=== PATIENT | female | born 1935 | race Caucasian/White ===

== ENCOUNTER 2020-01-31 13:56 | Outpatient (CLI) | payer MEDICARE, SELFPAY ==
--- NOTE | ~2020-01-31 | XR_ITS ---
XR chest 2V DATE: 01/31/2020 14:31 INDICATION: Shortness of breath. History of COPD. TECHNIQUE: AP and lateral views COMPARISON: 04/21/2015 CT chest high resolution scan 05/11/2005 two-view chest FINDINGS: Cardiomegaly. There is extensive thoracic aortic calcification as well as aortic ectasia an d tortuosity. No hilar or mediastinal enlargement is evident. There is old pulmonary granulomatous di sease on the right. No pulmonary infiltrate or consolidation, pleural effusion or pulmonary vascular congestion or pneumo thorax is detected. Diffuse osteopenia. There is scoliosis and degenerative change of the thoracic and lumbar spine. Dege nerative changes are noted at the shoulder joints. IMPRESSION: Cardiomegaly Aortic atherosclerosis No active pulmonary disease Reviewed, dictated and finalized at location A.
[2020-01-31 14:19] LABS: Basophils Percent Auto 0.6 % (0.2-1.2); Eosinophils Percent Auto 0.6 % (0-4.4); Hemoglobin 12.7 g/dL (12.0-15.0); Immature Granulocyte Absolute 0.03 K/mm3 (0.00-0.031); Immature Granulocyte Percent A 0.4 % (0-0.5); Lymphocytes Absolute Auto 1.65 K/mm3 (0.9-3.2); Lymphocytes Percent Auto 23.1 % (18.3-44.2); Mean Corpuscular HGB Conc 32.6 g/dl (32-36); Mean Corpuscular Hemoglobin 31.8 pg (26-34); Mean Corpuscular Volume 97.5 fl (80-100); Mean Platelet Volume 9.9 fl (7.4-10.4); Monocytes Absolute Auto 0.5 K/mm3 (0.1-0.6); Monocytes Percent Auto 6.4 % (2.6-8.5); Neutrophils Absolute Auto 4.9 K/mm3 (1.3-6.7); Neutrophils Percent Auto 68.9 % (45.5-73.1); Platelet Count Result 155 k/mm3 (150-375); Red Cell Distribution Width 14.7 % (11.5-14.5); White Blood Count 7.2 K/mm3 (4.5-10.0)
[2020-01-31 14:34] LABS: Blood Urea Nitrogen 20 mg/dL (7-17); Calcium 10.1 mg/dL (8.4-10.2); Carbon Dioxide 34 mmol/L (22-30); Chloride 95 mmol/L (98-107); Estimated Glomerular Filt Rate 53; Glucose 140 mg/dL (65-105); Potassium 4.2 mmol/L (3.4-5.0); Sodium 136 mmol/L (137-145)
[2020-01-31 14:39] LABS: Hemoglobin A1C 6.6 % (<5.7)
[2020-01-31 14:43] LABS: NT Pro B Type Natriuretic Pept 190 PG/ML (5-100)
== END 2020-01-31 13:57 | disposition home or self-care (01) ==
PROVIDERS: PCP Family Medicine; Visit Provider Nurse Practitioner Family
DX: R06.00 Dyspnea, unspecified (principal); R60.9 Edema, unspecified; I50.9 Heart failure, unspecified; E11.65 Type 2 diabetes mellitus with hyperglycemia; I10 Essential (primary) hypertension; R06.02 Shortness of breath; J44.9 Chronic obstructive pulmonary disease, unspecified
CPT/HCPCS: 36415; 71046; 80048; 83036; 83880; 85025

== ENCOUNTER 2020-03-10 14:25 | Outpatient (CLI) | payer MEDICARE, SELFPAY ==
--- NOTE | ~2020-03-10 | XR_ITS ---
EXAMINATION: XR knee RT 3V DATE: 03/10/2020 15:08 INDICATION: Right knee pain TECHNIQUE: Three views of the right knee were obtained. COMPARISON: None. FINDINGS: There is no fracture. Moderate to severe tricompartmental osteoarthritis is present. No dodie nt effusion/synovitis. There is calcified atherosclerosis. IMPRESSION: 1. No acute osseous abnormality. Reviewed, dictated and finalized at location A.
--- NOTE | ~2020-03-10 | XR_ITS ---
EXAMINATION: XR knee LT 3V DATE: 03/10/2020 15:08 INDICATION: Left knee pain TECHNIQUE: Three views of the left knee were obtained. COMPARISON: None. FINDINGS: There is no fracture. There is moderate tricompartmental osteoarthritis. No joint effusion/ synovitis. Calcified atherosclerosis is noted. IMPRESSION: 1. No acute osseous abnormality. Reviewed, dictated and finalized at location A.
== END 2020-03-10 14:26 | disposition home or self-care (01) ==
LOC: ANHIMG 14:28
PROVIDERS: PCP Family Medicine; Visit Provider Family Medicine
DX: M25.561 Pain in right knee (principal); M25.562 Pain in left knee; G89.29 Other chronic pain
CPT/HCPCS: 73562

== ENCOUNTER → 2020-09-21 08:59 | Outpatient (CLI) | payer MEDICARE, SELFPAY ==
--- NOTE | ~2020-09-21 | DEXA_ITS ---
Bone Density Report Name: Deena Cuevas Age: 85 Sex: Female Ethnicity: White Date of : 1935 Indication: postmenopausal; screening for osteoporosis; height loss; prior fracture; asthma or emphysema; end stage renal disease; Referring Provider: MARCELINO OSORIO Study: Bone densitometry was performed. Exam Date: September 21, 2020 Accession number: [id number] Bone Density: Region BMD T-score Z-score Classification AP Spine (L3, L4) 1.090 -0.1 2.9 Normal Femoral Neck (Left) 0.738 -1.0 1.5 Normal Total Hip (Left) 1.007 0.5 2.9 Normal Femoral Neck (Right) 0.651 -1.8 0.7 Osteopenia Total Hip (Right) 0.916 -0.2 2.1 Normal Total Hip Mean 0.962 0.2 2.5 Normal World Health Organization criteria for BMD impression classify patients as: Normal (T-score at or above -1.0), Osteopenia (T-score between -1.0 and -2.5), or Osteoporosis (T-score at or below -2.5). 10-year Fracture Risk: FRAX not reported because: Prior hip or vertebral fracture Previous Exams: Region Exam Age BMD T-score BMD Change BMD Change Date g/cm2 vs Baseline vs Previous AP Spine(L3, L4) 09/21/2020 85 1.090 -0.1 -0.022 0.017 05/18/2018 82 1.073 -0.3 -0.039 -0.029 04/27/2016 80 1.102 0.0 -0.010 -0.081* 09/15/2011 76 1.183 0.7 0.071* 0.000 07/23/2009 73 1.183 0.7 0.070* 0.070* 06/18/2007 71 1.112 0.1 Total Hip(Left) 09/21/2020 85 1.007 0.5 -0.168* -0.040 05/18/2018 82 1.048 0.9 -0.127 0.019 04/27/2016 80 1.028 0.7 -0.147* -0.138* 09/15/2011 76 1.166 1.8 -0.009 0.014 07/23/2009 73 1.152 1.7 -0.023 -0.023 06/18/2007 71 1.175 1.9 Total Hip(Right) 09/21/2020 85 0.916 -0.2 -0.238* -0.001 05/18/2018 82 0.918 -0.2 -0.237 -0.092 04/27/2016 80 1.010 0.6 -0.145* -0.076* 09/15/2011 76 1.085 1.2 -0.069* -0.046* 07/23/2009 73 1.132 1.6 -0.023 -0.023 06/18/2007 71 1.155 1.7 *Denotes significance at 95% confidence level, LSC for AP Spine = 0.022 g/cm2, LSC for Total Hip = 0.027 g/cm2 Clinical Information Provided by Patient: Have had a previous hip or vertebral fracture Has had a low trauma fracture Has the following medical conditions: Asthma or Emphysema, End stage renal disease Patient maximum
--- NOTE | ~2020-09-21 | MM_ITS ---
EXAMINATION: MM diagnostic billy LT w maria antonia HISTORY: History of mastectomy for right breast cancer TECHNIQUE: Craniocaudal, mediolateral, and mediolateral oblique 3-D tomosynthesis images of the left breast were performed and synthetic 2-D images were generated. CAD analysis was submitted and interpr eted. COMPARISON: 05/18/2018,04/29/2017, 04/27/2016 BREAST PARENCHYMAL COMPOSITION: There are scattered areas of fibroglandular density. FINDINGS: Scattered benign-appearing calcifications are present. There is no evidence of suspicious m ass, calcification, or architectural distortion to suggest malignancy. There has been no suspicious interval change. IMPRESSION: 1. No mammographic evidence of malignancy. 2. Recommend annual screening mammography while the patient remains in good health. BI-RADS Category 2: Benign finding(s). Reviewed, dictated and finalized at location A. NG SILKS CUSTODIAN IMPRESSION: 1. No mammographic evidence of malignancy. 2. Recommend annual screening mammography while the patient remains in good hea lt. BI-RADS Category 2: Benign finding(s).
== END ==
PROVIDERS: Visit Provider Family Medicine
DX: M81.0 Age-related osteoporosis without current pathological fracture (principal); C50.911 Malignant neoplasm of unspecified site of right female breast; N95.9 Unspecified menopausal and perimenopausal disorder; Z78.0 Asymptomatic menopausal state; M85.851 Other specified disorders of bone density and structure, right thigh; Z85.3 Personal history of malignant neoplasm of breast
CPT/HCPCS: 77061; 77065; 77080; G0279

== ENCOUNTER 2021-08-19 14:49 | Outpatient (CLI) | payer MEDICARE, SELFPAY ==
--- NOTE | ~2021-08-19 | XR_ITS ---
XR chest 2V 08/19/2021 15:14 Indication: Cough Procedure: 2 view chest Comparison: 01/31/2020 Findings: Interval placement of a stent at the aortic valve. There is extensive atherosclerosis and e ctasia of the aorta. There is chronic granulomatous disease. No focal air space disease, pulmonary ed adonis, pleural effusion or suspected pneumothorax. Impression: 1: No acute cardiopulmonary disease. Reviewed, dictated and finalized at location B. CLEANING MACHINE FEEDER Impression: 1: No acute cardiopulmonary disease.
--- NOTE | 2021-08-19 15:15 | ECG_ITS ---
Measurements Intervals [place] Rate: 99 P: 106 DC: 226 QRS: -2 QRSD: 82 T: 51 QT: 334 QTc: 430 Interpretive Statements SINUS RHYTHM WITH SINUS ARRHYTHMIA WITH FIRST DEGREE AV BLOCK DELAYED PRECORDIAL R/S TRANSITION BASELINE ARTIFACT- I, II, III, AVR, AVL, AVF ABNORMAL ECG Electronically Signed On 08-19-2021 15:36:17 KST OPERATOR by Kelvin Sidhu D.O.
== END 2021-08-19 14:50 | disposition home or self-care (01) ==
LOC: ANHIMG 14:52
PROVIDERS: PCP Family Medicine; Visit Provider Nurse Practitioner Family
DX: R05.9 Cough, unspecified (principal); I49.9 Cardiac arrhythmia, unspecified; U07.1 COVID-19; I44.0 Atrioventricular block, first degree
CPT/HCPCS: 71046; 93005

== ENCOUNTER 2023-10-13 13:41 | Inpatient (IN) | payer MEDICARE, SELFPAY ==
--- NOTE | ~2023-10-13 | US_ITS ---
EXAMINATION: US venous doppler [facility] DATE: 10/14/2023 17:42 INDICATION: Bilateral lower extremity edema . TECHNIQUE: Grayscale images without and with compression and Doppler images of the bilateral lower ex tremity veins were obtained. COMPARISON: None FINDINGS: The right common femoral vein, profunda (deep) femoral vein, femoral vein, popliteal vein, peroneal v ein, posterior tibial veins, and greater saphenous vein are patent. The left common femoral vein, profunda (deep) femoral vein, femoral vein, popliteal vein, peroneal v ein, posterior tibial veins, and greater saphenous vein are patent. IMPRESSION: Patent bilateral lower extremity veins. No evidence of deep venous thrombosis. Reviewed, dictated and finalized at location K. [employer]
--- NOTE | ~2023-10-13 | XR_ITS ---
EXAMINATION: XR chest 1V DATE: 10/13/2023 17:41 INDICATION: Fall. TECHNIQUE: A single frontal view of the chest was obtained. COMPARISON: Chest 2 views 08/19/2021 FINDINGS: A calcified right lung nodule and calcified right hilar lymph nodes are consistent with old adenomatous disease. There is mild atelectasis in left mid and lower lung zones. No pleural effusion or pneumothorax. Cardiomegaly is noted. There are changes of aortic valve replacement. There is a tw o-part fracture of proximal right humerus. There are surgical clips in right chest wall. IMPRESSION: 1. Cardiomegaly. 2. Mild atelectasis in left mid and lower lung zones. 3. Two-part fracture of proximal right humerus. Reviewed, dictated and finalized at location E. ER BREWER
--- NOTE | ~2023-10-13 | XR_ITS ---
EXAMINATION: XR hand RT min 3V DATE: 10/13/2023 17:41 INDICATION: Right hand pain. Fall. TECHNIQUE: 3 views of right hand were obtained. COMPARISON: Right hand radiographs 04/22/2019 FINDINGS: Bone alignment is normal. No fracture. There is diffuse osteopenia. There is moderate osteo arthritis of triscaphe joint and severe osteoarthritis of first carpometacarpal joint. There is osteo arthritis at most of the metacarpophalangeal joints and interphalangeal joints including severe osteo arthritis at first interphalangeal joint, fourth proximal interphalangeal joint, and second, third, f ourth, and fifth distal interphalangeal joints. IMPRESSION: 1. Polyarticular osteoarthritis. Reviewed, dictated and finalized at location E. ATOR HAND
--- NOTE | ~2023-10-13 | XR_ITS ---
EXAMINATION: XR hip RT 2V w AP pelvis DATE: 10/13/2023 17:41 INDICATION: Right hip pain. Fall. TECHNIQUE: An anteroposterior view of the pelvis and 2 views of right hip were obtained. COMPARISON: None. FINDINGS: Bone alignment is normal. No fracture. There is severe lumbar spondylosis. There is mild os teoarthritis of the hip joints. IMPRESSION: 1. Mild osteoarthritis of the hips. Reviewed, dictated and finalized at location E. ING FURNACE FEEDER
--- NOTE | ~2023-10-13 | XR_ITS ---
EXAMINATION: XR lumbar spine 2-3V DATE: 10/13/2023 17:41 INDICATION: Back pain. Fall. TECHNIQUE: 3 views of lumbar spine were obtained. COMPARISON: Lumbar spine radiographs 10/02/2004, lumbar spine CT 07/2117 FINDINGS: There is 4 mm anterolisthesis of L4 on L5. Sensitivity is decreased by obesity. There are c hronic burst fractures of T12 and L1. There is moderately decreased disc height at L4-L5 and L5-S1. T here is multilevel severe facet joint osteoarthritis. There are changes of aortic valve replacement. Cholelithiasis is noted. IMPRESSION: 1. Moderate lumbar spondylosis. Reviewed, dictated and finalized at location E. TES INSTRUCTOR
--- NOTE | ~2023-10-13 | XR_ITS ---
EXAMINATION: XR shoulder RT 1V DATE: 10/13/2023 17:42 INDICATION: Right shoulder pain. Fall. TECHNIQUE: A single view of right shoulder was obtained. COMPARISON: None. FINDINGS: There is a oblique fracture of surgical neck of proximal right humerus. The distal fracture fragment demonstrates one shaft width medial displacement and 80 degrees lateral angulation. There i s severe osteoarthritis of glenohumeral joint and acromioclavicular joint. IMPRESSION: 1. Two-part fracture of proximal right humerus. 2. Polyarticular osteoarthritis. Reviewed, dictated and finalized at location E. CTOR OF PATIENT SAFETY
--- NOTE | ~2023-10-13 | CT_ITS ---
EXAMINATION: CT brain wo con DATE: 10/13/2023 17:03 INDICATION: Head injury. TECHNIQUE: Computed tomography (CT) of the head was performed without intravenous contrast. The mA wa s adjusted according to patient size. Iterative reconstruction technique was employed. The dose-lengt h product was 605.33 mGy-cm. COMPARISON: CTA neck 06/04/2009 FINDINGS: There are scattered areas of low attenuation in the cerebral white matter, which is within normal limits for the patient's age. There is no intracranial hemorrhage, acute infarction, or abnorm al intracranial mass lesion. The ventricles are normal in size. There are likely changes of ocular le ns replacement surgeries. The paranasal sinuses are clear. The mastoid air cells are normal. IMPRESSION: 1. Normal aging brain. Reviewed, dictated and finalized at location E. TENANCE LEADER IMPRESSION: 1. Normal aging brain.
[2023-10-13 13:48] VITALS: BP 110/61; PULSE 100; RESP 20; TEMP 36.7; O2SAT 100
[2023-10-13 16:01] VITALS: BP 157/59; PULSE 95; RESP 16; O2SAT 100
[2023-10-13] MEDS: MORPHINE SULFATE (*CRX) 2 MG/ML INJ IV PUSH ×3 (16:41→21:17)
[2023-10-13 16:45] LABS: Basophils Percent Auto 0.3 % (0.2-1.2); Hematocrit 28.1 % (37.0-47.0); Hemoglobin 8.8 g/dL (12.0-15.0); Immature Granulocyte Absolute 0.03 K/mm3 (0.00-0.031); Immature Granulocyte Percent A 0.3 % (0-0.5); Lymphocytes Absolute Auto 1.59 K/mm3 (0.9-3.2); Lymphocytes Percent Auto 16.7 % (18.3-44.2); Mean Corpuscular HGB Conc 31.3 g/dl (32-36); Mean Corpuscular Hemoglobin 31.9 pg (26-34); Mean Corpuscular Volume 101.8 fl (80-100); Mean Platelet Volume 10.6 fl (7.4-10.4); Monocytes Absolute Auto 0.8 K/mm3 (0.1-0.6); Monocytes Percent Auto 8.2 % (2.6-8.5); Neutrophils Absolute Auto 7.1 K/mm3 (1.3-6.7); Neutrophils Percent Auto 74.5 % (45.5-73.1); Platelet Count Result 137 k/mm3 (150-375); Red Blood Count 2.76 M/mm3 (4.2-5.4); Red Cell Distribution Width 14.6 % (11.5-14.5); White Blood Count 9.5 K/mm3 (4.5-10.0)
[2023-10-13 16:53] LABS: INR 1.1; Prothrombin Time 14.3 Seconds (11.1-14.7)
[2023-10-13 16:54] LABS: Partial Thromboplastin Time 29.3 SECONDS (22.3-36.8)
[2023-10-13 16:55] LABS: Alanine Aminotransferase 25 U/L (6-35); Albumin Level 3.4 g/dL (3.5-5.1); Alkaline Phosphatase 84 U/L (38-126); Anion Gap 4 mmol/L (8-16); Aspartate Amino Transferase 46 U/L (14-36); Bilirubin,Total 0.7 mg/dL (0.2-1.3); Blood Urea Nitrogen 36 mg/dL (7-17); Calcium 8.9 mg/dL (8.4-10.2); Carbon Dioxide 31 mmol/L (22-30); Chloride 96 mmol/L (98-107); Estimated CRCL calculation 38 ml/min; Estimated Glomerular Filt Rate 47; Glucose 144 mg/dL (65-110); Potassium 4.8 mmol/L (3.4-5.0); Sodium 131 mmol/L (137-145)
[2023-10-13 18:14] LABS: Appearance Urine Clear (Clear); Bacteria Urine None Seen /hpf; Bilirubin Urine Negative (Negative); Blood Urine Negative (Negative); Color Urine Dark Yellow (Yellow); Glucose Urine UA Negative (Negative); Hyaline Casts Urine Present /lpf; Ketones Urine Trace mg/dL (Negative); Leukocyte Esterase Ur 2+ LEU/UL (Negative); Nitrate Urine Negative (Negative); Non Pathogenic Casts >20; Protein Urine 1+ mg/dL (Negative); RBC Urine 0-2 /hpf (0-2); Specific Grav Ur 1.015 (1.001-1.035); Squamous Epithelial Cell Urine Occasional /hpf (Few); Urobilinogen Urine 0.2 mg/dL (<2.0); WBC Urine 21-50 /hpf
[2023-10-13 18:15] LABS: Add Urine Microscopic? YES
--- NOTE | 2023-10-13 18:30 | ED.GENADULT ---
HPI - General Adult General Chief complaint: Fall Stated complaint: GLF, r shoulder pain, Time Seen by Provider: 10/13/23 15:42 History of Present Illness HPI narrative: Patient is a 89-year-old female who presents ER after a fall at home. She has had progressive weakness over last 2-3 days which she has had trouble ambulating. Today she tried to get out of bed to go to the bathroom when she fell onto the ground on her outstretched right arm. Sudden onset pain to the shoulder. Patient refused transfer to the hospital. Pain is worsened throughout the day so she decided finally to come in. No numbness or tingling to the arm. She does have bruising to the anterior aspect. She reports weakness in her legs which caused her to not be able to walk. No previous trauma. No focal weakness to the arm. Related Data Home Medications Medication Instructions Recorded Confirmed multivitamin 1 tablet PO DAILY 09/06/19 07/14/23 polyethylene glycol 3350 17 17 gm PO DAILY 09/06/19 07/14/23 gram/dose oral powder aspirin 81 mg tablet,delayed 81 mg PO DAILY 06/25/21 07/14/23 release (Adult Low Dose Aspirin) Allergies Allergy/AdvReac Type Severity Reaction Status Date / Time Penicillins Allergy Mild Unknown Verified 10/13/23 13:52 amoxicillin Allergy Unknown Unknown Verified 10/13/23 13:52 ampicillin Allergy Unknown Unknown Verified 10/13/23 13:52 azithromycin Allergy Unknown Unknown Verified 10/13/23 13:52 codeine Allergy Unknown Unknown Verified 10/13/23 13:52 gabapentin Allergy Unknown Unknown Verified 10/13/23 13:52 Iodinated Contrast Media Allergy Unknown Unknown Verified 10/13/23 13:52 levofloxacin Allergy Unknown Unknown Verified 10/13/23 13:52 Contrast Media Allergy Unknown UNKNOWN Uncoded 07/14/23 10:19 Review of Systems Review of Systems: All systems reviewed & are unremarkable except as noted in HPI and below Constitutional: Constitutional: Reports fatigue and Reports weakness ENT: Reports system reviewed and no additional complaints, except as documented Cardiovascular: Cardiovascular: Reports no additional cardiovascular complaints Respiratory: Respiratory: Reports no additional respiratory complaints Gastrointestinal: Gastrointestinal: Reports no additional gastrointestinal complaints Musculoskeletal: Musculoskeletal: Reports back pain (Buttock), Reports arthralgias, Denies joint swelling and Reports muscle cramps Neurologic: Reports system reviewed and no additional complaints, except as documented PMFSH Past Medical History Medical History Allergies Anemia Anemia Anxiety Arthritis Asthma Ataxia BMI 40.0-44.9, adult Breast cancer CAD (coronary artery disease) CHF (congestive heart failure) CKD (chronic kidney disease) stage 3, GFR 30-59 ml/min COPD (chronic obstructive pulmonary disease) Depression Diabetes GERD (gastroesophageal reflux disease) Gout Gross hematuria Heart disease HTN (hypertension) Low blood potassium Morbid obesity Osteoporosis Recurrent urinary tract infection Renal disease Stroke Thrombocytopenia Thyroid disease Weakness of both legs Surgical History Surgical History H/O cataract extraction H/O mechanical aortic valve replacement H/O: hysterectomy History of back surgery Hx of tonsillectomy Family History Family History Mother Family history of coronary artery disease Family history of heart disease in male family member before age 55 Acute myocardial infarction Sibling Family history of liver disease Father Family history of heart disease in male family member before age 55 Other Diabetes mellitus Family history of cardiovascular disease Family history of diabetes mellitus in first degree relative Family history of kidney disease Hypertension Social History Social Histo
[2023-10-13 19:04] VITALS: BP 150/58; PULSE 93; RESP 16; TEMP 36.6; O2SAT 100
[2023-10-13 19:55] LABS: Influenza A QL RT-PCR Negative (Negative); Influenza B QL RT-PCR Negative (Negative); RSV RNA, RT-PCR Negative (Negative); SARS-CoV-2 RNA PCR Negative (Negative)
[2023-10-13 20:21] VITALS: BP 131/58; PULSE 88; RESP 13; O2SAT 95
--- NOTE | 2023-10-13 20:22 | PM.IMHP ---
H&P: HPI History of Present Illness Date/Time: 10/13/23 19:15 Chief Complaint: Right arm pain after fall. Narrative: This is very pleasant 88-year-old female with history of stroke, congestive heart failure, coronary artery disease, hypertension, chronic obstructive pulmonary disease, chronic respiratory failure, obstructive sleep apnea on CPAP, hypothyroidism, breast cancer, type 2 diabetes mellitus, hypothyroidism, anemia, depression, anxiety, and chronic decubitus ulcer over the coccyx who presented to the emergency department via EMS from home for evaluation of right arm pain after fall. The patient provides the following history. She lives in her own home and her daughters come by frequently to help out. She ambulates with a walker and is typically able to get up and about the house without much issue. She woke up at about 05:00 with the urge to go to the bathroom and she tells me that she waited too long and she tried to hurry to the bathroom. Unfortunately she got her foot caught up in her sheets and she fell out of bed, landing on her right side. She hit her head on the floor and had immediate pain and bruising in her right arm. She called EMS for lift assist but initially declined transfer. She has not been able to get around at home due to ongoing pain in the right arm and she came in for evaluation. Multiple images were obtained and she was found to have a 2 part fracture of the proximal right humerus. The arm has been placed in a sling and she is being admitted in this setting for pain control, orthopedic consultation, and custodial placement while that fracture heals. She denies head trauma and loss of consciousness in the fall. She also denies feelings of lightheadedness, dizziness, cold and flu symptoms, chest pain, pleuritic pain, cough, nausea, vomiting, diarrhea, and dysuria. Review of Systems Review of Systems: Twelve systems were reviewed and are negative except for as per HPI. [facility] Past Medical History Medical History (Updated 10/13/23 @ 23:04 by Anali Sims PA-C) Allergies Anemia Anxiety Arthritis Asthma Ataxia Breast cancer Chronic kidney disease Chronic obstructive pulmonary disease Coronary artery disease Decubitus ulcer Depression Gastroesophageal reflux disease Gout Heart failure of unknown type Hypertension Morbid obesity Obstructive sleep apnea on CPAP Osteoporosis Recurrent urinary tract infection Stroke Thrombocytopenia Thyroid disease Type 2 diabetes mellitus Weakness of both legs Surgical History Surgical History (Updated 10/13/23 @ 22:56 by Anali Sims PA-C) History of aortic valve replacement with tissue graft History of back surgery History of cataract extraction History of hysterectomy History of tonsillectomy Family History Family History Mother Family history of coronary artery disease Family history of heart disease in male family member before age 55 Acute myocardial infarction Sibling Family history of liver disease Father Family history of heart disease in male family member before age 55 Other Diabetes mellitus Family history of cardiovascular disease Family history of diabetes mellitus in first degree relative Family history of kidney disease Hypertension Social History Social History (Updated 10/13/23 @ 22:56 by Anali Sims PA-C) Social History: Surrogate medical decision maker: Carli Michaels, daughter. Code status: Full code. Smoking status: Never smoker Second hand tobacco smoke exposure: Yes Alcohol intake: never Substance use: never Substance use type: does not use Do You Feel Safe in your Home?: No Lack of Transportation: No Lack of Food: Never True Current Housing: I Have Housing Concerned About Future Housing: No Difficulty Paying Gas/Electric Bills: No Difficulty Paying for Meds: No Currently Unemployed:
--- NOTE | 2023-10-13 21:20 | ADMGEN ---
This patient, Deena Cuevas, was admitted to Medical Room 251-01. Patient/family oriented to hospital policies and general routines including ID bracelet, bed and alarms, visiting hours, pain management, procedures, bathroom and other care routines, personal items, smoking policy, room service/diet, and visiting hours. Information on how to activate the Rapid Response Team has been discussed. Patient/Family are encouraged to report perceived risks to care and to ask questions if they do not understand what they are told or what they should do.
[2023-10-13 21:57] VITALS: BP 150/60; PULSE 74; RESP 18; TEMP 36.6; O2SAT 100
[2023-10-13 21:58] VITALS: O2SAT 100; BMI 38.9
[2023-10-13 23:47] LABS: Iron 37 ug/dL (37-170)
[2023-10-13 23:57] LABS: Percent Iron Saturation 15 % (20-50)
[2023-10-14] LABS: Hemoglobin A1C 5.3 % (<5.7)
[2023-10-14 00:21] LABS: Thyroid Stimulating Hormone Reflex 0.908 uIU/mL (0.465-4.68)
[2023-10-14 01:09] LABS: Folic Acid > 20.0 ng/mL (2.76->20)
[2023-10-14 03:08] VITALS: BP 162/59; PULSE 77; RESP 14; TEMP 36.6; O2SAT 100
[2023-10-14] MEDS: ACETAMINOPHEN 325 MG TABLET 650 MG PO ×2 (03:17→11:08)
[2023-10-14 05:17] LABS: Hematocrit 24.9 % (37.0-47.0); Hemoglobin 7.8 g/dL (12.0-15.0); Immature Platelet Fraction Pct 4.4 % (0.9-11.2); Mean Corpuscular HGB Conc 31.3 g/dl (32-36); Mean Corpuscular Hemoglobin 32.1 pg (26-34); Mean Corpuscular Volume 102.5 fl (80-100); Mean Platelet Volume 10.7 fl (7.4-10.4); Platelet Count Result 125 k/mm3 (150-375); Red Blood Count 2.43 M/mm3 (4.2-5.4); Red Cell Distribution Width 14.3 % (11.5-14.5); White Blood Count 6.4 K/mm3 (4.5-10.0)
[2023-10-14 05:28] LABS: Anion Gap 5 mmol/L (8-16); Blood Urea Nitrogen 36 mg/dL (7-17); Calcium 8.8 mg/dL (8.4-10.2); Carbon Dioxide 30 mmol/L (22-30); Chloride 97 mmol/L (98-107); Estimated CRCL calculation 36 ml/min; Estimated Glomerular Filt Rate 47; Glucose 127 mg/dL (65-110); Potassium 4.3 mmol/L (3.4-5.0); Sodium 132 mmol/L (137-145)
[2023-10-14 08:37] VITALS: O2SAT 100
--- NOTE | 2023-10-14 08:43 | PM.CNOR ---
Assessment and Plan Assessment and plan (1) Fracture of proximal end of right humerus: Qualifiers: Encounter type: initial encounter Fracture type: closed Fracture morphology: other fracture Fracture alignment: displaced Qualified Code(s): S42.291A - Other displaced fracture of upper end of right humerus, initial encounter for closed fracture Code(s): S42.201A - Unspecified fracture of upper end of right humerus, initial encounter for closed fracture Status: Acute Assessment and Plan: New patient evaluation status post injury Right shoulder. The history, physical exam and radiographs reviewed with the patient. fall from bed at home onto right shoulder. Type of fracture discussed in detail. Displaced fracture proximal humerus surgical neck. Pre-existing degenerative changes shoulder joint. Treatment options including operative and non operative treatment reviewed. Risks, benefits and alternatives of each treatment discussed in detail. Severe medical comorbidities as well as decreased ability to rehab. Patient is at high fall risk. The patient has declined surgical treatment. Risks of treatment decision discussed in detail. Potential problems with displacement of the fracture, loss of alignment, nonunion, malunion and dysfunction discussed in detail. The patient's questions were answered. They verbalized understanding and agreement. Conservative treatment with immobilization, ice, Pain control. mobilize Patient as tolerated. PT/OT. Repeat radiographs in 5 weeks. History of Present Illness HPI Consult date: 10/14/23 Requesting physician: Anthony Rothman MD Chief complaint: huemrus fracture, uti, weakness Narrative: 88-year-old woman who fell at home after tripping bedding injuring her right shoulder. Found to have right humerus fracture. Admitted for medical care as well as eval and treatment of her fracture. Patient is [id number]. Complains of pain both shoulders prior to the injury due to history of breast cancer with mastectomy on the right and valve replacement surgery involving the left side of the chest. Complains of some numbness in the small finger which was present prior to the injury. Review of Systems Constitutional: Constitutional: Denies fever(s) Eyes: Eyes: Denies blurry vision ENT: Reports Normal hearing present Cardiovascular: Cardiovascular: Denies chest pain and Denies dyspnea Respiratory: Respiratory: Denies dyspnea and Denies wheezing Gastrointestinal: Gastrointestinal: Denies abdominal pain Genitourinary: Genitourinary: Denies urinary urgency Musculoskeletal: Musculoskeletal: Reports as per HPI and Denies numbness Integumentary/Breasts: Skin/Breast: Denies changing lesions and Denies sores Neurologic: Reports Normal hearing present, Denies behavioral changes, Denies confusion, Denies numbness and Denies convulsions Psychiatric: Psychiatric: Denies behavioral changes, Denies confusion and Denies hallucinations Endocrine: Endocrine: Denies heat intolerance Hematologic/Lymphatic: Hematologic/Lymphatic: Denies easy bleeding Allergic/Immunologic: Allergic/Immunologic: Denies wheezing PMFSH Past Medical History Medical History Allergies Anemia Anxiety Arthritis Asthma Ataxia Breast cancer Chronic kidney disease Chronic obstructive pulmonary disease Coronary artery disease Decubitus ulcer Depression Gastroesophageal reflux disease Gout Heart failure of unknown type Hypertension Morbid obesity Obstructive sleep apnea on CPAP Osteoporosis Recurrent urinary tract infection Stroke Thrombocytopenia Thyroid disease Type 2 diabetes mellitus Weakness of both legs Surgical History Surgical History History of aortic valve replacement with tissue graft History of back surgery History of cataract extraction History of
[2023-10-14 09:41] LABS: Glucose Point of Care 120 mg/dl (65-105)
[2023-10-14] MEDS: MORPHINE SULFATE (*CRX) 2 MG/ML INJ IV PUSH ×3 (12:20→18:09)
[2023-10-14 12:21] LABS: Glucose Point of Care 148 mg/dl (65-105)
[2023-10-14 15:32] VITALS: BP 161/60; PULSE 82; RESP 12; TEMP 36.8; O2SAT 100
[2023-10-14 16:47] LABS: Glucose Point of Care 128 mg/dl (65-105)
--- NOTE | 2023-10-14 17:01 | PM.IMPN ---
Progress Note: A&P Assessment and Plan (1) Obstructive sleep apnea on CPAP: Code(s): G47.33 - Obstructive sleep apnea (adult) (pediatric) Status: Acute (2) Fall from bed: Code(s): W06.XXXA - Fall from bed, initial encounter Status: Acute (3) Hypertension: Code(s): I10 - Essential (primary) hypertension Status: Acute (4) Type 2 diabetes mellitus: Code(s): E11.9 - Type 2 diabetes mellitus without complications Status: Acute (5) Chronic obstructive pulmonary disease: Code(s): J44.9 - Chronic obstructive pulmonary disease, unspecified Status: Acute (6) Fracture of proximal end of right humerus: Qualifiers: Encounter type: initial encounter Fracture alignment: displaced Fracture morphology: other fracture Fracture type: closed Qualified Code(s): S42.291A - Other displaced fracture of upper end of right humerus, initial encounter for closed fracture Code(s): S42.201A - Unspecified fracture of upper end of right humerus, initial encounter for closed fracture Status: Acute (7) Acute UTI: Code(s): N39.0 - Urinary tract infection, site not specified Status: Acute Plan Continue antibiotics for now. Can discontinue based on urine culture results. Orthopedic consultation appreciated. Mobility as tolerated, physical therapy and OT ordered. Disposition to SNF for therapy. Pending venous ultrasound of the lower extremities to rule out DVT. Monitor hemoglobin. If hemoglobin is stable in the morning start DVT prophylaxis with Lovenox or heparin. Full code Subjective Date/time seen: 10/14/23 17:01 Interval history: No acute overnight events. The patient has no complaints and denies any pain at the moment. Review of Systems Review of Systems: All systems reviewed & are unremarkable except as noted in HPI and below (Subjective) Exam Const: General: comfortable and no acute distress Eyes: Pupils: Equal, round and reactive pupils present Resp: Effort & Inspection: normal respiratory effort Auscultation: clear to auscultation bilaterally Cardio: Rate: regular rate Rhythm: regular rhythm GI: GI Palp: Yes Soft to palpation and No Tenderness to palpation present (GI) Extrem: General: edema (1+ bilateral lower extremity edema) Objective Data Vital Signs Vital Signs: Vital Signs - 24 hr 10/13/23 19:04 10/13/23 20:21 01/26/24 21:57 Temperature 97.8 F 97.8 F Pulse Rate 93 88 74 Respiratory Rate 16 13 18 Blood Pressure 150/58 H 131/58 L 150/60 H Pulse Oximetry 100 95 100 Oxygen Delivery Oxygen Flow Rate 10/13/23 21:58 10/14/23 03:08 10/14/23 08:37 Temperature 97.9 F Pulse Rate 77 Respiratory Rate 14 Blood Pressure 162/59 H Pulse Oximetry 100 100 100 Oxygen Delivery Nasal Cannula Nasal Cannula Oxygen Flow Rate 3 3 10/14/23 15:32 Temperature 98.3 F Pulse Rate 82 Respiratory Rate 12 Blood Pressure 161/60 H Pulse Oximetry 100 Oxygen Delivery Oxygen Flow Rate Intake/Output Intake/Output: Intake & Output 10/11/23 10/12/23 10/13/23 10/14/23 23:59 23:59 23:59 23:59 Intake Total 50 320 Output Total 100 800 Balance -50 -480 Meds/Results Medications: Active Medications Generic Name Dose Route Start Last Admin Trade Name Freq PRN Reason Stop Dose Admin Acetaminophen 650 mg 10/13/23 18:59 10/14/23 11:08 Acetaminophen 325 Mg Tablet PO 650 mg Q4H PRN Administration Mild Pain (1-3) or Fever Albuterol 2 puff 10/14/23 16:59 Albuterol Sulfate (*Sp) Aerosol 1 Puff INHALATION Q4H PRN shortness of breath or wheezing Allopurinol 100 mg 10/14/23 17:00 Allopurinol 100 Mg Tablet PO TID [facility] Aspirin 81 mg 10/15/23 09:00 Aspirin 81 Mg Enteric Tablet PO DAILY [facility] Atorvastatin Calcium 80 mg 10/15/23 09:00 Atorvastatin 40 Mg Tablet PO DAILY [facility] Dextrose 12.5 gm 10/13/23 23:04 Dextrose 50% 25 Gm/50 Ml
[2023-10-14] MEDS: allopurinoL 100 MG TABLET PO (18:08)
[2023-10-14] MEDS: lisinopriL 2.5 MG TABLET BY MOUTH (18:09)
[2023-10-14] MEDS: ONDANSETRON INJ 4 MG/2 ML VIAL IV PUSH (20:03)
[2023-10-14 20:37] VITALS: BP 149/64; PULSE 96; RESP 16; TEMP 36.4; O2SAT 100
[2023-10-14 21:20] LABS: Glucose Point of Care 139 mg/dl (65-105)
[2023-10-14] MEDS: LORazepam (*CRX) 0.5 MG TABLET PO (22:14)
[2023-10-14 23:18] VITALS: PULSE 105; O2SAT 94
[2023-10-15] VITALS (7 sets, daily range): BP systolic 96–139; BP diastolic 50–69; PULSE 88–101; RESP 20; TEMP 36.1–36.7; O2SAT 93–100
[2023-10-15] MEDS: MORPHINE SULFATE (*CRX) 2 MG/ML INJ IV PUSH ×5 (00:03→21:12)
[2023-10-15 05:51] LABS: Basophils Percent Auto 0.3 % (0.2-1.2); Eosinophils Percent Auto 0.1 % (0-4.4); Hematocrit 25.6 % (37.0-47.0); Hemoglobin 8.1 g/dL (12.0-15.0); Immature Granulocyte Absolute 0.02 K/mm3 (0.00-0.031); Immature Granulocyte Percent A 0.2 % (0-0.5); Lymphocytes Percent Auto 6.4 % (18.3-44.2); Mean Corpuscular HGB Conc 31.6 g/dl (32-36); Mean Corpuscular Hemoglobin 32.3 pg (26-34); Mean Platelet Volume 10.3 fl (7.4-10.4); Monocytes Absolute Auto 0.7 K/mm3 (0.1-0.6); Monocytes Percent Auto 6.3 % (2.6-8.5); Neutrophils Absolute Auto 9.4 K/mm3 (1.3-6.7); Neutrophils Percent Auto 86.7 % (45.5-73.1); Platelet Count Result 143 k/mm3 (150-375); Red Blood Count 2.51 M/mm3 (4.2-5.4); Red Cell Distribution Width 14.4 % (11.5-14.5); White Blood Count 10.9 K/mm3 (4.5-10.0)
[2023-10-15 06:07] LABS: Alanine Aminotransferase 22 U/L (6-35); Albumin Level 3.1 g/dL (3.5-5.1); Alkaline Phosphatase 75 U/L (38-126); Anion Gap 6 mmol/L (8-16); Aspartate Amino Transferase 31 U/L (14-36); Bilirubin,Total 0.9 mg/dL (0.2-1.3); Blood Urea Nitrogen 39 mg/dL (7-17); Calcium 8.7 mg/dL (8.4-10.2); Carbon Dioxide 33 mmol/L (22-30); Chloride 94 mmol/L (98-107); Estimated CRCL calculation 33 ml/min; Estimated Glomerular Filt Rate 42; Glucose 147 mg/dL (65-110); Magnesium 2.3 mg/dL (1.6-2.3); Sodium 133 mmol/L (137-145)
[2023-10-15] MEDS: LEVOTHYROXINE SODIUM 125 MCG TABLET PO (06:18)
--- NOTE | 2023-10-15 07:33 | PM.PNORT ---
Progress Note: A&P Assessment and Plan (1) Fracture of proximal end of right humerus: Qualifiers: Encounter type: subsequent encounter Fracture alignment: displaced Fracture morphology: other fracture Fracture type: closed Fracture healing: with routine healing Qualified Code(s): S42.291D - Other displaced fracture of upper end of right humerus, subsequent encounter for fracture with routine healing Code(s): S42.201A - Unspecified fracture of upper end of right humerus, initial encounter for closed fracture Status: Acute Assessment and Plan: right proximal humerus fracture. Patient resting comfortably. May be up as tolerated. Sling for immobilization. Pain control. Orthopedic follow-up in 5 weeks for new radiographs. Subjective Subjective Date/Time Seen: 10/15/23 07:33 Principal diagnosis: Right proximal humerus fracture Interval history: resting comfortably. No new complaints. Exam Const: General: No confusion Orientation/consciousness: patient oriented x3 and No confusion HENMT: Head: normal to inspection and contusion ( Ecchymosis) right occipital Neck: Neck: supple and nontender Chest: Chest palpation & inspection: normal inspection of the chest Resp: Effort & Inspection: normal respiratory effort and no audible wheezes Cardio: Rate: regular rate Rhythm: regular rhythm GI: GI Palp: No abdominal tenderness and Yes Soft to palpation : General: Yes deferred Skin: General skin exam: no rashes or lesions noted Neuro: General: patient oriented x3 and No confusion Cranial nerves: Yes Normal hearing present Extrem: General: capillary refill normal Right upper extremity: shoulder/upper arm abnormal to inspection (Ecchymosis lateral shoulder), tenderness of the proximal humerus, swelling of the proximal humerus, axillary nerve sensory function normal and abnormal ROM pain with active ROM in extension and in flexion and with range as follows (Deferred secondary to fracture), elbow/forearm normal to inspection and normal ROM; no tenderness and no swelling and Extremity exam: right hand normal to inspection, normal capillary refill, neuromotor exam normal, neurosensory exam normal, tendon exam normal of all digits and vascular exam radial pulse present and normal capillary refill Left upper extremity: normal to inspection and shoulder/upper arm inspection abnormal and normal ROM; no tenderness and no swelling Right lower extremity: hip/thigh Details: normal to inspection and normal ROM; no tenderness, knee Details: normal to inspection and swelling Location: of the pre-patellar area, ankle ( able to actively flex and extend ankle) Details: no tenderness and foot Details: normal capillary refill, toes with normal ROM, vascular exam Details: dorsalis pedis pulse present and normal capillary refill and motor-sensory exam Details: light-touch normal Location: in all toes; no tenderness Left lower extremity: normal to inspection, hip/thigh Details: no tenderness and no swelling, lower leg, ankle (no calf tenderness) Details: normal ROM; no tenderness and foot Details: normal capillary refill, vascular exam Details: dorsalis pedis pulse present and normal capillary refill and motor-sensory exam light-touch normal in all toes Psych: Affect: normal affect Objective Data Vital Signs Vital Signs: Vital Signs - 24 hr 10/14/23 08:37 10/14/23 15:32 10/14/23 20:37 Temperature 98.3 F 97.5 F L Pulse Rate 82 96 Respiratory Rate 12 16 Blood Pressure 161/60 H 149/64 H Pulse Oximetry 100 100 100 Oxygen Delivery Nasal Cannula Oxygen Flow Rate 3 10/14/23 23:18 10/15/23 04:09 Temperature 97 F L Pulse Rate 105 H 100 Respiratory Rate 20 Blood Pressure 139/69 Pulse Oximetry 94 100 Oxygen Delivery Oxygen Flow Rate Intake/Output Intake/Output: Intake & Output 10/12/23 10/13/23 10/14/23 10/15/23 23:59 23:59 23:59 23:59 Intake Total 50 560 200 Output Total 100 80
[2023-10-15 08:27] LABS: Glucose Point of Care 151 mg/dl (65-105)
[2023-10-15] MEDS: MULTIVITAMINS THERAPEUTIC TAB (*BKC) 1 TABLET PO (08:50)
[2023-10-15] MEDS: FUROSEMIDE 40 MG TABLET PO (08:50)
[2023-10-15] MEDS: POTASSIUM CHLORIDE 10 MEQ ER TABLET BY MOUTH (08:50)
[2023-10-15] MEDS: EZETIMIBE 10 MG TABLET PO (08:50)
[2023-10-15] MEDS: ASPIRIN 81 MG ENTERIC TABLET PO (08:50)
[2023-10-15] MEDS: PANTOPRAZOLE 40 MG TABLET PO (08:50)
[2023-10-15] MEDS: allopurinoL 100 MG TABLET PO ×3 (08:50→16:59)
[2023-10-15] MEDS: ATORVASTATIN 40 MG TABLET 80 MG PO (08:50)
[2023-10-15] MEDS: lisinopriL 2.5 MG TABLET BY MOUTH (09:03)
--- NOTE | 2023-10-15 09:39 | PM.IMPN ---
Progress Note: A&P Assessment and Plan (1) Obstructive sleep apnea on CPAP: Code(s): G47.33 - Obstructive sleep apnea (adult) (pediatric) Status: Acute (2) Fall from bed: Code(s): W06.XXXA - Fall from bed, initial encounter Status: Acute (3) Hypertension: Code(s): I10 - Essential (primary) hypertension Status: Acute (4) Type 2 diabetes mellitus: Code(s): E11.9 - Type 2 diabetes mellitus without complications Status: Acute (5) Chronic obstructive pulmonary disease: Code(s): J44.9 - Chronic obstructive pulmonary disease, unspecified Status: Acute (6) Fracture of proximal end of right humerus: Qualifiers: Encounter type: subsequent encounter Fracture alignment: displaced Fracture healing: with routine healing Fracture morphology: other fracture Fracture type: closed Qualified Code(s): S42.291D - Other displaced fracture of upper end of right humerus, subsequent encounter for fracture with routine healing Code(s): S42.201A - Unspecified fracture of upper end of right humerus, initial encounter for closed fracture Status: Acute (7) Acute UTI: Code(s): N39.0 - Urinary tract infection, site not specified Status: Acute Plan Continue antibiotics for now. Can discontinue based on urine culture results. Orthopedic consultation appreciated. Continue immobility sling, physical therapy and OT ordered. Disposition to SNF for therapy. Lower extremity Doppler ultrasound negative for DVT. Monitor hemoglobin. Has sanguinous drainage from pressure wound. Consult Wound Care. FEN: Saline lock IV GI prophylaxis: None indicated DVT prophylaxis: Heparin subQ Lines: Peripheral IV Code Status: Full code Dispo: Stable, disposition to SNF for therapy pending Subjective Date/time seen: 10/15/23 09:39 Interval history: No acute overnight events. Patient denies pain, abdominal pain, shortness of breath, urinary symptoms. Review of Systems Review of Systems: All systems reviewed & are unremarkable except as noted in HPI and below (Subjective) Exam Const: General: comfortable and no acute distress Eyes: Pupils: Equal, round and reactive pupils present Resp: Effort & Inspection: normal respiratory effort Cardio: Rate: regular rate Rhythm: regular rhythm GI: GI Palp: No Tenderness to palpation present (GI) Extrem: General: edema Objective Data Vital Signs Vital Signs: Vital Signs - 24 hr 10/14/23 15:32 10/14/23 20:37 10/14/23 23:18 Temperature 98.3 F 97.5 F L Pulse Rate 82 96 105 H Respiratory Rate 12 16 Blood Pressure 161/60 H 149/64 H Pulse Oximetry 100 100 94 10/15/23 04:09 Temperature 97 F L Pulse Rate 100 Respiratory Rate 20 Blood Pressure 139/69 Pulse Oximetry 100 Intake/Output Intake/Output: Intake & Output 10/12/23 10/13/23 10/14/23 10/15/23 23:59 23:59 23:59 23:59 Intake Total 50 610 200 Output Total 100 800 Balance -50 -190 200 Meds/Results Medications: Active Medications Generic Name Dose Route Start Last Admin Trade Name Freq PRN Reason Stop Dose Admin Acetaminophen 650 mg 10/13/23 18:59 10/14/23 11:08 Acetaminophen 325 Mg Tablet PO 650 mg Q4H PRN Administration Mild Pain (1-3) or Fever Albuterol 2 puff 10/14/23 16:59 Albuterol Sulfate (*Sp) Aerosol 1 Puff INHALATION Q4H PRN shortness of breath or wheezing Allopurinol 100 mg 10/14/23 17:00 10/15/23 08:50 Allopurinol 100 Mg Tablet PO 100 mg TID FELIBERTO Administration Aspirin 81 mg 10/15/23 09:00 10/15/23 08:50 Aspirin 81 Mg Enteric Tablet PO 81 mg DAILY FELIBERTO Administration Atorvastatin Calcium 80 mg 10/15/23 09:00 10/15/23 08:50 Atorvastatin 40 Mg Tablet PO 80 mg DAILY FELIBERTO Administration Dextrose 12.5 gm 10/13/23 23:04 Dextrose 50% 25 Gm/50 Ml Syringe IV PUSH PRN PRN Hypoglycemia Protocol Ezetimibe 10 mg 10/15/23 09:00
[2023-10-15] MEDS: FLUTICASONE/UMECLIDIN/VILANTER 100-62.5-25 MCG ELLIPTA 1 PUFF INHALATION (10:10)
[2023-10-15 11:56] LABS: Glucose Point of Care 129 mg/dl (65-105)
--- NOTE | 2023-10-15 15:50 | PCPTNOTE ---
Attempted evaluation at 1520, but patient's BP was too low, 112/37 machine, 90/50 manual to attempt EOB or OOB activity. Informed realtime court reporter IP OT about PLOF. Physical therapy will attempt evaluation tomorrow.
[2023-10-15] MEDS: SODIUM CHLORIDE 0.9% IV 500 ML IV CONT (16:58)
[2023-10-15 17:23] LABS: Glucose Point of Care 111 mg/dl (65-105)
[2023-10-15] MEDS: LORazepam (*CRX) 0.5 MG TABLET PO (21:12)
[2023-10-15 22:08] LABS: Glucose Point of Care 152 mg/dl (65-105)
[2023-10-15] MEDS: WATER FOR IRRIGATION, STERILE 1,000 ML BOTTLE 1000 ML (23:47)
[2023-10-16] VITALS (10 sets, daily range): BP systolic 122–152; BP diastolic 35–53; PULSE 91–106; RESP 16–20; TEMP 36.6–36.9; O2SAT 96–100; BMI 41.3
[2023-10-16] MEDS: LEVOTHYROXINE SODIUM 125 MCG TABLET PO (05:37)
[2023-10-16 06:13] LABS: Basophils Absolute Auto 0.1 K/mm3 (0.0-0.1); Basophils Percent Auto 0.6 % (0.2-1.2); Eosinophils Absolute Auto 0.2 K/mm3 (0-0.3); Eosinophils Percent Auto 1.9 % (0-4.4); Hematocrit 22.4 % (37.0-47.0); Immature Granulocyte Absolute 0.03 K/mm3 (0.00-0.031); Immature Granulocyte Percent A 0.4 % (0-0.5); Lymphocytes Absolute Auto 1.25 K/mm3 (0.9-3.2); Lymphocytes Percent Auto 15.9 % (18.3-44.2); Mean Corpuscular HGB Conc 30.8 g/dl (32-36); Mean Corpuscular Hemoglobin 31.9 pg (26-34); Mean Corpuscular Volume 103.7 fl (80-100); Mean Platelet Volume 10.4 fl (7.4-10.4); Monocytes Absolute Auto 0.7 K/mm3 (0.1-0.6); Monocytes Percent Auto 9.3 % (2.6-8.5); Neutrophils Absolute Auto 5.7 K/mm3 (1.3-6.7); Neutrophils Percent Auto 71.9 % (45.5-73.1); Platelet Count Result 134 k/mm3 (150-375); Red Blood Count 2.16 M/mm3 (4.2-5.4); Red Cell Distribution Width 14.6 % (11.5-14.5); White Blood Count 7.9 K/mm3 (4.5-10.0)
[2023-10-16 06:23] LABS: Anion Gap 3 mmol/L (8-16); Blood Urea Nitrogen 48 mg/dL (7-17); Calcium 8.4 mg/dL (8.4-10.2); Carbon Dioxide 31 mmol/L (22-30); Chloride 96 mmol/L (98-107); Estimated CRCL calculation 26 ml/min; Estimated Glomerular Filt Rate 30; Glucose 97 mg/dL (65-110); Potassium 4.1 mmol/L (3.4-5.0); Sodium 130 mmol/L (137-145)
[2023-10-16 06:24] LABS: Hemoglobin 6.9 g/dL (12.0-15.0)
[2023-10-16] MEDS: MORPHINE SULFATE (*CRX) 2 MG/ML INJ IV PUSH ×5 (06:52→21:05)
[2023-10-16 07:25] LABS: Procalcitonin 0.4 ng/mL
[2023-10-16 08:05] LABS: Glucose Point of Care 106 mg/dl (65-105)
[2023-10-16] MEDS: FLUTICASONE/UMECLIDIN/VILANTER 100-62.5-25 MCG ELLIPTA 1 PUFF INHALATION (08:45)
[2023-10-16] MEDS: PANTOPRAZOLE 40 MG TABLET PO (08:50)
[2023-10-16] MEDS: POTASSIUM CHLORIDE 10 MEQ ER TABLET BY MOUTH (08:50)
[2023-10-16] MEDS: MULTIVITAMINS THERAPEUTIC TAB (*BKC) 1 TABLET PO (08:50)
[2023-10-16] MEDS: ASPIRIN 81 MG ENTERIC TABLET PO (08:50)
[2023-10-16] MEDS: EZETIMIBE 10 MG TABLET PO (08:50)
[2023-10-16] MEDS: allopurinoL 100 MG TABLET PO ×3 (08:50→17:30)
[2023-10-16] MEDS: ATORVASTATIN 40 MG TABLET 80 MG PO (08:50)
--- NOTE | 2023-10-16 11:31 | PM.IMPN ---
Progress Note: A&P Assessment and Plan (1) Obstructive sleep apnea on CPAP: Code(s): G47.33 - Obstructive sleep apnea (adult) (pediatric) Status: Acute (2) Fall from bed: Code(s): W06.XXXA - Fall from bed, initial encounter Status: Acute (3) Hypertension: Code(s): I10 - Essential (primary) hypertension Status: Acute (4) Type 2 diabetes mellitus: Code(s): E11.9 - Type 2 diabetes mellitus without complications Status: Acute (5) Chronic obstructive pulmonary disease: Code(s): J44.9 - Chronic obstructive pulmonary disease, unspecified Status: Acute (6) Fracture of proximal end of right humerus: Qualifiers: Encounter type: subsequent encounter Fracture alignment: displaced Fracture healing: with routine healing Fracture morphology: other fracture Fracture type: closed Qualified Code(s): S42.291D - Other displaced fracture of upper end of right humerus, subsequent encounter for fracture with routine healing Code(s): S42.201A - Unspecified fracture of upper end of right humerus, initial encounter for closed fracture Status: Acute (7) Acute UTI: Code(s): N39.0 - Urinary tract infection, site not specified Status: Acute Plan Continue ceftriaxone. Deescalate tomorrow if still stable and nontoxic. Her UA was questionable although urine culture growing Pseudomonas aeruginosa sensitive to 3rd generation cephalosporin. Appreciate orthopedic recommendations, continue immobility sling. PT OT ordered and disposition to SNF when ready. Lower extremity Doppler ultrasound negative for DVT. Otherwise she is compensated in regards to her heart failure On 10/16 her hemoglobin is 6.9. He does have chronic anemia but this is acute on chronic. She does have a sanguinous straining although not infected sacral wound. Wound Care has been consulted. Transfuse 1 unit of PRBC and recheck hemoglobin 1 hour after. She has a history of coronary artery disease so the ideal hemoglobin goal is above 8. Stool occult pending FEN: Saline lock IV GI prophylaxis: None indicated DVT prophylaxis: SCDs only. Lines: Peripheral IV Code Status: Full code Dispo: Stable, disposition to SNF for therapy pending Subjective Date/time seen: 10/16/23 11:31 Interval history: No acute overnight events. She reports her pain is controlled with current regimen Review of Systems Review of Systems: All systems reviewed & are unremarkable except as noted in HPI and below (Subjective) Exam Const: General: comfortable and no acute distress Other: Had a large loose brown stool upon entering the room Eyes: Pupils: Equal, round and reactive pupils present Neck: Neck: supple Resp: Effort & Inspection: normal respiratory effort Auscultation: clear to auscultation bilaterally Cardio: Rate: regular rate Rhythm: regular rhythm GI: GI Palp: Yes Soft to palpation and No Tenderness to palpation present (GI) Extrem: General: edema Objective Data Vital Signs Vital Signs: Vital Signs - 24 hr 10/15/23 15:30 10/15/23 15:50 10/15/23 20:35 Temperature 97.8 F 98.1 F Pulse Rate 101 H 101 H 88 Respiratory Rate 20 Blood Pressure 96/50 L 96/50 L 133/56 L Pulse Oximetry 100 100 100 Oxygen Delivery Nasal Cannula Oxygen Flow Rate 3 10/15/23 20:00 10/16/23 04:00 10/15/23 21:50 Temperature 98.4 F Pulse Rate 91 92 Respiratory Rate 18 Blood Pressure 133/51 L Pulse Oximetry 100 100 93 Oxygen Delivery Nasal Cannula Oxygen Flow Rate 3 10/16/23 08:47 10/16/23 08:00 Temperature Pulse Rate Respiratory Rate Blood Pressure Pulse Oximetry 96 96 Oxygen Delivery Nasal Cannula Nasal Cannula Oxygen Flow Rate 3 3 Intake/Output Intake/Output: Intake & Output 10/13/23 10/14/23 10/15/23 10/16/23 23:59 23:59 23:59 23:59 Intake Total 50 610 1180 200 Output Total 439 063 9123 400 Balance -50 -190 30 -200 Meds/Resul
[2023-10-16] MEDS: LORazepam (*CRX) 0.5 MG TABLET PO ×2 (12:22→21:06)
[2023-10-16 12:28] LABS: Glucose Point of Care 134 mg/dl (65-105)
[2023-10-16] MEDS: SODIUM CHLORIDE 0.9% IV 250 ML 30 ML IV CONT (12:52)
--- NOTE | 2023-10-16 13:32 | PM.PNORT ---
Progress Note: A&P Assessment and Plan (1) Fracture of proximal end of right humerus: Qualifiers: Encounter type: subsequent encounter Fracture alignment: displaced Fracture healing: with routine healing Fracture morphology: other fracture Fracture type: closed Qualified Code(s): S42.291D - Other displaced fracture of upper end of right humerus, subsequent encounter for fracture with routine healing Code(s): S42.201A - Unspecified fracture of upper end of right humerus, initial encounter for closed fracture Status: Acute Assessment and Plan: Patient with a history of a right proximal humerus fracture. Long discussion with the patient and family today regarding surgical versus non operative treatment options. Patient is currently not a surgical candidate due to anemia. She has limited use of her right upper extremity at baseline due to a history of breast cancer and lymph node removal, as well as mastectomy. the patient's family expresses interest in surgical intervention. Today we discussed that the patient has severe underlying degenerative changes and the potential likelihood of improvement in current function with surgical intervention cannot be guarantee. Patient family verbalized understanding. would recommend continue conservative treatment at this time. Pain control. Sling. PT and OT for mobilization with nonweightbearing of the right upper extremity. Gentle pendulum exercises for hygiene only. Wrist and hand range of motion and mortgage assistant strengthening. We will continue to monitor. We will plan for orthopedic follow-up in 5 weeks for new radiographs. (2) Abnormal urinalysis: Code(s): R82.90 - Unspecified abnormal findings in urine Status: Acute (3) Macrocytic anemia: Code(s): D53.9 - Nutritional anemia, unspecified Status: Acute Assessment and Plan: Anemia. Unknown origin. Her family at bedside, they have been seen their primary care for hemoglobin abnormalities. She is concerned that this could be from another cause and would like to discuss this with Hospitalist service she is currently receiving 1 unit of packed red blood cells. (4) Decubitus ulcer: Code(s): L89.90 - Pressure ulcer of unspecified site, unspecified stage Status: Acute (5) Fall from bed: Code(s): W06.XXXA - Fall from bed, initial encounter Status: Acute (6) Hypertension: Code(s): I10 - Essential (primary) hypertension Status: Acute (7) Gastroesophageal reflux disease: Code(s): K21.9 - Gastro-esophageal reflux disease without esophagitis Status: Acute (8) Type 2 diabetes mellitus: Code(s): E11.9 - Type 2 diabetes mellitus without complications Status: Acute (9) Chronic obstructive pulmonary disease: Code(s): J44.9 - Chronic obstructive pulmonary disease, unspecified Status: Acute (10) Chronic kidney disease: Code(s): N18.9 - Chronic kidney disease, unspecified Status: Acute (11) Heart failure of unknown type: Code(s): I50.9 - Heart failure, unspecified Status: Acute Plan Reviewed history, exam, radiographs and current labs with attending MD and covering surgeon, Dr. Boyle, who agrees with current plan as indicated above. No further recommendations from Dr. Boyle at this time. Subjective Subjective Date/Time Seen: 10/16/23 13:32 Interval history: Patient sitting up in bed at time of exam. She is currently receiving 1 unit of packed red blood cells. Patient and family have questions regarding surgical intervention. Still with pain in the right upper extremity. Review of Systems Constitutional: Constitutional: Denies fever(s) Eyes: Eyes: Denies blurry vision ENT: Reports Normal hearing present Cardiovascular: Cardiovascular: Denies chest pain and Denies dyspnea Respiratory: Respiratory: Denies dyspnea and Denies wheezing Gastrointestinal: Gastrointestinal:
[2023-10-16 18:07] LABS: Hematocrit 25.3 % (37.0-47.0)
[2023-10-16 20:58] LABS: Glucose Point of Care 141 mg/dl (65-105)
[2023-10-16] MEDS: rOPINIRole HCL 1 MG TABLET PO (22:55)
[2023-10-17] VITALS (12 sets, daily range): BP systolic 129–141; BP diastolic 44–63; PULSE 68–92; RESP 16–24; TEMP 36.4–36.9; O2SAT 96–100
[2023-10-17] MEDS: LEVOTHYROXINE SODIUM 125 MCG TABLET PO (05:06)
[2023-10-17 05:49] LABS: Basophils Percent Auto 0.2 % (0.2-1.2); Eosinophils Absolute Auto 0.2 K/mm3 (0-0.3); Eosinophils Percent Auto 1.6 % (0-4.4); Hematocrit 23.3 % (37.0-47.0); Hemoglobin 7.6 g/dL (12.0-15.0); Immature Granulocyte Absolute 0.05 K/mm3 (0.00-0.031); Immature Granulocyte Percent A 0.5 % (0-0.5); Lymphocytes Absolute Auto 1.49 K/mm3 (0.9-3.2); Mean Corpuscular HGB Conc 32.6 g/dl (32-36); Mean Corpuscular Hemoglobin 32.6 pg (26-34); Mean Platelet Volume 9.4 fl (7.4-10.4); Monocytes Absolute Auto 0.8 K/mm3 (0.1-0.6); Monocytes Percent Auto 8.4 % (2.6-8.5); Neutrophils Absolute Auto 6.8 K/mm3 (1.3-6.7); Neutrophils Percent Auto 73.3 % (45.5-73.1); Platelet Count Result 126 k/mm3 (150-375); Red Blood Count 2.33 M/mm3 (4.2-5.4); White Blood Count 9.3 K/mm3 (4.5-10.0)
[2023-10-17 06:02] LABS: Anion Gap 4 mmol/L (8-16); Blood Urea Nitrogen 60 mg/dL (7-17); Calcium 8.3 mg/dL (8.4-10.2); Carbon Dioxide 28 mmol/L (22-30); Chloride 95 mmol/L (98-107); Estimated CRCL calculation 25 ml/min; Estimated Glomerular Filt Rate 28; Glucose 95 mg/dL (65-110); Magnesium 2.3 mg/dL (1.6-2.3); Potassium 4.2 mmol/L (3.4-5.0); Sodium 127 mmol/L (137-145)
[2023-10-17] MEDS: FLUTICASONE/UMECLIDIN/VILANTER 100-62.5-25 MCG ELLIPTA 1 PUFF INHALATION (08:05)
[2023-10-17 08:43] LABS: Glucose Point of Care 92 mg/dl (65-105)
--- NOTE | 2023-10-17 09:22 | PM.PNORT ---
Progress Note: A&P Assessment and Plan (1) Fracture of proximal end of right humerus: Qualifiers: Encounter type: subsequent encounter Fracture alignment: displaced Fracture healing: with routine healing Fracture morphology: other fracture Fracture type: closed Qualified Code(s): S42.291D - Other displaced fracture of upper end of right humerus, subsequent encounter for fracture with routine healing Code(s): S42.201A - Unspecified fracture of upper end of right humerus, initial encounter for closed fracture Status: Acute Assessment and Plan: Patient with a history of a right proximal humerus fracture. Long discussion with the patient and family today regarding surgical versus non operative treatment options yesterday. We discussed that the patient has severe underlying degenerative changes and the potential likelihood of improvement in current function with surgical intervention cannot be guaranteed. Patient family verbalized understanding. would recommend continue conservative treatment at this time. Pain control. Sling. PT and OT for mobilization with nonweightbearing of the right upper extremity. Assistance with meals. Gentle pendulum exercises for hygiene only. Wrist and hand range of motion and prism inspector strengthening. We will continue to monitor. We will plan for orthopedic follow-up in 5 weeks for new radiographs. (2) Abnormal urinalysis: Code(s): R82.90 - Unspecified abnormal findings in urine Status: Acute (3) Macrocytic anemia: Code(s): D53.9 - Nutritional anemia, unspecified Status: Acute Assessment and Plan: Anemia. Unknown origin. Her family at bedside, they have been seen their primary care for hemoglobin abnormalities. She is concerned that this could be from another cause and would like to discuss this with Hospitalist service HgB today is 7.6 s/p transfusion (4) Decubitus ulcer: Code(s): L89.90 - Pressure ulcer of unspecified site, unspecified stage Status: Acute (5) Fall from bed: Code(s): W06.XXXA - Fall from bed, initial encounter Status: Acute (6) Hypertension: Code(s): I10 - Essential (primary) hypertension Status: Acute (7) Gastroesophageal reflux disease: Code(s): K21.9 - Gastro-esophageal reflux disease without esophagitis Status: Acute (8) Type 2 diabetes mellitus: Code(s): E11.9 - Type 2 diabetes mellitus without complications Status: Acute (9) Chronic obstructive pulmonary disease: Code(s): J44.9 - Chronic obstructive pulmonary disease, unspecified Status: Acute (10) Chronic kidney disease: Code(s): N18.9 - Chronic kidney disease, unspecified Status: Acute (11) Heart failure of unknown type: Code(s): I50.9 - Heart failure, unspecified Status: Acute Plan Reviewed history, exam, radiographs and current labs with attending MD and covering surgeon, Dr. Boyle, who agrees with current plan as indicated above. No further recommendations from Dr. Boyle at this time. Subjective Subjective Date/Time Seen: 10/17/23 09:22 Interval history: Patient sitting up in bed at time of exam. Difficulty with self feeding. Swelling RUE. Review of Systems Review of Systems: All systems reviewed & are unremarkable except as noted in HPI and below Exam Const: General: No confusion Orientation/consciousness: patient oriented x3 and No confusion HENMT: Head: normal to inspection and contusion ( Ecchymosis) right occipital Neck: Neck: supple and nontender Chest: Chest palpation & inspection: normal inspection of the chest Resp: Effort & Inspection: normal respiratory effort and no audible wheezes Cardio: Rate: regular rate Rhythm: regular rhythm GI: GI Palp: No abdominal tenderness and Yes Soft to palpation : General: Yes deferred Skin: General skin exam: no rashes or lesions noted Neuro: General: patient oriented x3
[2023-10-17] MEDS: MULTIVITAMINS THERAPEUTIC TAB (*BKC) 1 TABLET PO (09:58)
[2023-10-17] MEDS: EZETIMIBE 10 MG TABLET PO (09:58)
[2023-10-17] MEDS: ATORVASTATIN 40 MG TABLET 80 MG PO (09:58)
[2023-10-17] MEDS: POTASSIUM CHLORIDE 10 MEQ ER TABLET BY MOUTH (09:59)
[2023-10-17] MEDS: allopurinoL 100 MG TABLET PO ×3 (09:59→17:07)
[2023-10-17] MEDS: PANTOPRAZOLE 40 MG TABLET PO (09:59)
[2023-10-17] MEDS: ACETAMINOPHEN 325 MG TABLET 650 MG PO (09:59)
[2023-10-17] MEDS: ASPIRIN 81 MG ENTERIC TABLET PO (09:59)
[2023-10-17] MEDS: MORPHINE SULFATE (*CRX) 2 MG/ML INJ IV PUSH ×4 (10:10→21:39)
[2023-10-17 11:07] LABS: Immunochemical Fecal Occult Bl Negative (N)
[2023-10-17 11:08] LABS: IFOB Positive Control Positive
[2023-10-17 12:04] LABS: Glucose Point of Care 104 mg/dl (65-105)
--- NOTE | 2023-10-17 16:36 | PM.IMPN ---
Progress Note: A&P Assessment and Plan (1) Obstructive sleep apnea on CPAP: Code(s): G47.33 - Obstructive sleep apnea (adult) (pediatric) Status: Acute (2) Fall from bed: Code(s): W06.XXXA - Fall from bed, initial encounter Status: Acute (3) Hypertension: Code(s): I10 - Essential (primary) hypertension Status: Acute (4) Type 2 diabetes mellitus: Code(s): E11.9 - Type 2 diabetes mellitus without complications Status: Acute (5) Chronic obstructive pulmonary disease: Code(s): J44.9 - Chronic obstructive pulmonary disease, unspecified Status: Acute (6) Fracture of proximal end of right humerus: Qualifiers: Encounter type: subsequent encounter Fracture alignment: displaced Fracture healing: with routine healing Fracture morphology: other fracture Fracture type: closed Qualified Code(s): S42.291D - Other displaced fracture of upper end of right humerus, subsequent encounter for fracture with routine healing Code(s): S42.201A - Unspecified fracture of upper end of right humerus, initial encounter for closed fracture Status: Acute (7) Acute UTI: Code(s): N39.0 - Urinary tract infection, site not specified Status: Acute Plan Completed ceftriaxone. Appreciate orthopedic recommendations, continue immobility sling. PT OT ordered and disposition to SNF when ready. Lower extremity Doppler ultrasound negative for DVT. Otherwise she is compensated in regards to her heart failure On 10/16 her hemoglobin is 6.9. He does have chronic anemia but this is acute on chronic. She does have a sanguinous straining although not infected sacral wound. Wound Care has been consulted. Transfuse 1 unit of PRBC and recheck hemoglobin 1 hour after. She has a history of coronary artery disease so the ideal hemoglobin goal is above 8. Stool occult pending On 10/17 hemoglobin is 7.6 status post 1 unit PRBC. Will transfuse another unit after discussing risks versus benefits of blood transfusion in the setting of coronary artery disease with the patient. She requests blood transfusion. Stool occult x1 negative, pending 1 more. ALEJA couple with hyponatremia. Recheck BMP at midnight. In volume with packed red blood cells. She is likely hypovolemic. FEN: Saline lock IV GI prophylaxis: None indicated DVT prophylaxis: SCDs only. Lines: Peripheral IV Code Status: Full code Dispo: Stable, disposition to SNF for therapy pending Subjective Date/time seen: 10/17/23 16:36 Interval history: No acute overnight events. Patient denies any chest pain or shortness of breath. She reports her pain is controlled Review of Systems Review of Systems: All systems reviewed & are unremarkable except as noted in HPI and below (Subjective) Exam Const: General: comfortable and no acute distress Eyes: Pupils: Equal, round and reactive pupils present Neck: Neck: supple Resp: Effort & Inspection: normal respiratory effort Auscultation: clear to auscultation bilaterally Cardio: Rate: regular rate Rhythm: regular rhythm GI: GI Palp: Yes Soft to palpation and No Tenderness to palpation present (GI) Extrem: General: edema Objective Data Vital Signs Vital Signs: Vital Signs - 24 hr 10/16/23 20:19 10/16/23 20:38 10/16/23 20:55 Temperature 98.0 F Pulse Rate 96 93 Respiratory Rate 20 Blood Pressure 122/48 L Pulse Oximetry 97 99 99 Oxygen Delivery Nasal Cannula Nasal Cannula Oxygen Flow Rate 3 3 10/17/23 04:35 10/17/23 08:07 10/17/23 08:19 Temperature 97.5 F L 97.5 F L Pulse Rate 91 92 Respiratory Rate 20 17 Blood Pressure 141/52 H 129/63 Pulse Oximetry 100 96 100 Oxygen Delivery Nasal Cannula Oxygen Flow Rate 3 10/17/23 08:00 10/17/23 12:03 Temperature 98.0 F Pulse Rate 88 Respiratory Rate 17 Blood Pressure 140/52 L Pulse Oximetry 99 99 Oxygen Delivery Nasal Cannula Oxygen Flow Rate 3 Intake/
[2023-10-17] MEDS: SODIUM CHLORIDE 0.9% IV 250 ML 30 ML IV CONT (18:51)
[2023-10-17] MEDS: rOPINIRole HCL 1 MG TABLET PO (20:44)
[2023-10-17] MEDS: LORazepam (*CRX) 0.5 MG TABLET PO (20:44)
[2023-10-17 21:11] LABS: Glucose Point of Care 149 mg/dl (65-105)
[2023-10-18 00:22] LABS: Anion Gap 4 mmol/L (8-16); Blood Urea Nitrogen 66 mg/dL (7-17); Calcium 8.2 mg/dL (8.4-10.2); Carbon Dioxide 28 mmol/L (22-30); Chloride 96 mmol/L (98-107); Estimated CRCL calculation 28 ml/min; Estimated Glomerular Filt Rate 33; Glucose 129 mg/dL (65-110); Potassium 4.2 mmol/L (3.4-5.0); Sodium 128 mmol/L (137-145)
[2023-10-18 04:53] VITALS: BP 144/51; PULSE 76; RESP 20; TEMP 36.8; O2SAT 100
[2023-10-18] MEDS: LEVOTHYROXINE SODIUM 125 MCG TABLET PO (04:57)
[2023-10-18 06:11] LABS: Basophils Percent Auto 0.4 % (0.2-1.2); Eosinophils Absolute Auto 0.2 K/mm3 (0-0.3); Eosinophils Percent Auto 1.9 % (0-4.4); Hematocrit 27.4 % (37.0-47.0); Hemoglobin 8.6 g/dL (12.0-15.0); Immature Granulocyte Absolute 0.05 K/mm3 (0.00-0.031); Immature Granulocyte Percent A 0.6 % (0-0.5); Lymphocytes Absolute Auto 1.07 K/mm3 (0.9-3.2); Lymphocytes Percent Auto 12.6 % (18.3-44.2); Mean Corpuscular HGB Conc 31.4 g/dl (32-36); Mean Corpuscular Hemoglobin 31.5 pg (26-34); Mean Corpuscular Volume 100.4 fl (80-100); Mean Platelet Volume 9.9 fl (7.4-10.4); Monocytes Absolute Auto 0.7 K/mm3 (0.1-0.6); Monocytes Percent Auto 8.7 % (2.6-8.5); Neutrophils Absolute Auto 6.5 K/mm3 (1.3-6.7); Neutrophils Percent Auto 75.8 % (45.5-73.1); Platelet Count Result 147 k/mm3 (150-375); Red Blood Count 2.73 M/mm3 (4.2-5.4); Red Cell Distribution Width 15.9 % (11.5-14.5); White Blood Count 8.5 K/mm3 (4.5-10.0)
[2023-10-18 06:30] LABS: Anion Gap 4 mmol/L (8-16); Blood Urea Nitrogen 64 mg/dL (7-17); Calcium 8.4 mg/dL (8.4-10.2); Carbon Dioxide 28 mmol/L (22-30); Chloride 98 mmol/L (98-107); Estimated CRCL calculation 28 ml/min; Estimated Glomerular Filt Rate 33; Glucose 101 mg/dL (65-110); Magnesium 2.4 mg/dL (1.6-2.3); Potassium 4.1 mmol/L (3.4-5.0); Sodium 130 mmol/L (137-145)
[2023-10-18 08:00] VITALS: O2SAT 96
[2023-10-18 08:18] VITALS: O2SAT 96
[2023-10-18] MEDS: FLUTICASONE/UMECLIDIN/VILANTER 100-62.5-25 MCG ELLIPTA 1 PUFF INHALATION (08:18)
[2023-10-18 08:35] LABS: Glucose Point of Care 94 mg/dl (65-105)
--- NOTE | 2023-10-18 09:46 | PCOTNOTE ---
The patient treatment was not able to be completed patient is 10 pain patient reports she will work after she get her pain medication. Will plan to continue treatment per plan of care.
[2023-10-18] MEDS: MORPHINE SULFATE (*CRX) 2 MG/ML INJ IV PUSH ×2 (10:18→15:59)
[2023-10-18] MEDS: ATORVASTATIN 40 MG TABLET 80 MG PO (10:19)
[2023-10-18] MEDS: POTASSIUM CHLORIDE 10 MEQ ER TABLET BY MOUTH (10:19)
[2023-10-18] MEDS: allopurinoL 100 MG TABLET PO ×2 (10:19→12:49)
[2023-10-18] MEDS: ASPIRIN 81 MG ENTERIC TABLET PO (10:19)
[2023-10-18] MEDS: PANTOPRAZOLE 40 MG TABLET PO (10:19)
[2023-10-18] MEDS: MULTIVITAMINS THERAPEUTIC TAB (*BKC) 1 TABLET PO (10:19)
[2023-10-18] MEDS: EZETIMIBE 10 MG TABLET PO (10:19)
[2023-10-18 12:20] LABS: Glucose Point of Care 122 mg/dl (65-105)
[2023-10-18] MEDS: traMADol HCL (*CRX) 50 MG TABLET PO (14:13)
[2023-10-18 14:34] VITALS: BP 125/49; PULSE 99; RESP 16; TEMP 36; O2SAT 98
--- NOTE | 2023-10-18 15:41 | PM.DS ---
DS: Admitting Diagnosis Discharge Date October 18 2023 Admitting Diagnosis Fall at home DS: Discharge Diagnosis Discharge Diagnosis (1) Obstructive sleep apnea on CPAP: Code(s): G47.33 - Obstructive sleep apnea (adult) (pediatric) Status: Acute (2) Macrocytic anemia: Code(s): D53.9 - Nutritional anemia, unspecified Status: Acute (3) Fracture of proximal end of right humerus: Qualifiers: Encounter type: subsequent encounter Fracture alignment: displaced Fracture healing: with routine healing Fracture morphology: other fracture Fracture type: closed Qualified Code(s): S42.291D - Other displaced fracture of upper end of right humerus, subsequent encounter for fracture with routine healing Code(s): S42.201A - Unspecified fracture of upper end of right humerus, initial encounter for closed fracture Status: Acute DS: Summary Hospital Course Hospital Course: A pleasant 88-year-old female with a history of stroke, congestive heart failure, CAD, hypertension, COPD, chronic respiratory failure on 3 L nasal cannula, MATTHEW on CPAP, hypothyroidism, history of breast cancer, non-insulin dependent diabetes mellitus, chronic macrocytic anemia, depression and anxiety, chronic deconditioning and decubitus ulcer on the sacrum. Patient lives at home alone with help from the daughters. She typically ambulates without a walker however on the day of admission the patient woke up with a urge to use the bathroom and fell out of bed. She was discovered to have a 2 part fracture of the proximal right humerus. Orthopedic surgery was consulted and after discussion with the patient she elected conservative management. Her pain has been relatively well controlled with as needed Tylenol and tramadol. She is to wear the right arm sling nonweightbearing of right upper extremity with gentle pendulum exercises for hygiene only. On 10/18 she is discharged in stable condition to SNF for rehab stay. She will follow-up in 5 weeks Orthopedic surgery team for repeat imaging. The patient does have chronic lower extremity edema due to her heart failure. Diuretics continued. Lower extremity Doppler ultrasound negative bilaterally for DVT. She does have chronic anemia however did require 2 units PRBC to bring her hemoglobin above 7. 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 Bleeding controlled with wound care. No signs or symptoms of infection. Stool occult negative ALEJA and hyponatremia. Both of these did improve after packed red blood cell administration. She was full code during her admission. Time Spent with Patient Time attestation: Total time spent providing and/or coordinating discharge services: Exam Const: General: comfortable and no acute distress Eyes: Pupils: Equal, round and reactive pupils present Neck: Neck: supple Resp: Effort & Inspection: normal respiratory effort Auscultation: clear to auscultation bilaterally Cardio: Rate: regular rate Rhythm: regular rhythm GI: GI Palp: Yes Soft to palpation and No Tenderness to palpation present (GI) Extrem: General: edema DS: Data Data Completed and Pending Labs on day of discharge: Labs from last 24 hours 10/18/23 10/18/23 10/18/23 12:15 08:12 05:57 WBC 8.5 RBC 2.73 L Hgb 8.6 L Hct 27.4 L MCV 100.4 H MCH 31.5 MCHC 31.4 L RDW 15.9 H Plt Count 147 L MPV 9.9 Immature Gran % (Auto) 0.6 H Neut % (Auto) 75.8 H Lymph % (Auto) 12.6 L [place] % (Auto) 8.7 H Eos % (Auto) 1.9 Baso % (Auto) 0.4 Lymph # (Auto) 1.07 [place] # (Auto) 0.7 H Eos # (Auto) 0.2 Baso # (Auto) 0.0 Abs Immat Gran (auto) 0.05 H Absolute Neuts (auto) 6.5 Absolute Nucleated RBC 0.0 Nucleated RBC % 0.0 Sodium 130 L Potassium 4.1 Chloride 98 Carbon Dioxide 28 Anion Gap 4 L BUN 64 H Creatinine 1.50 H Estim Creat Clear Calc 28 Estimated GFR
[2023-10-18 16:50] LABS: SARS-CoV-2 RNA PCR Negative (Negative)
== END 2023-10-18 18:20 | DRG 563 ==
LOC: ANHED 19:17 → ANH2MED 20:55
PROVIDERS: Physician Assistant; Admitting Provider General Practice; Emergency Provider Emergency Medicine; PCP Family Medicine; Visit Provider General Practice
DX: S42.221A 2-part displaced fracture of surgical neck of right humerus, initial encounter for closed fracture (principal); I13.0 Hypertensive heart and chronic kidney disease with heart failure and stage 1 through stage 4 chronic kidney disease, or unspecified chronic kidney disease; N39.0 Urinary tract infection, site not specified; E87.1 Hypo-osmolality and hyponatremia; N17.9 Acute kidney failure, unspecified; Z68.41 Body mass index [BMI] 40.0-44.9, adult; I25.10 Atherosclerotic heart disease of native coronary artery without angina pectoris; I50.9 Heart failure, unspecified; N18.30 Chronic kidney disease, stage 3 unspecified; J44.9 Chronic obstructive pulmonary disease, unspecified; D69.6 Thrombocytopenia, unspecified; D53.9 Nutritional anemia, unspecified; E11.22 Type 2 diabetes mellitus with diabetic chronic kidney disease; E03.9 Hypothyroidism, unspecified; E66.01 Morbid (severe) obesity due to excess calories; L89.159 Pressure ulcer of sacral region, unspecified stage; K21.9 Gastro-esophageal reflux disease without esophagitis; M19.90 Unspecified osteoarthritis, unspecified site; R60.0 Localized edema; M81.0 Age-related osteoporosis without current pathological fracture; G47.33 Obstructive sleep apnea (adult) (pediatric); F32.A Depression, unspecified; F41.9 Anxiety disorder, unspecified; W06.XXXA Fall from bed, initial encounter; Z20.822 Contact with and (suspected) exposure to COVID-19; Z11.52 Encounter for screening for COVID-19; Z86.73 Personal history of transient ischemic attack (TIA), and cerebral infarction without residual deficits; Z85.3 Personal history of malignant neoplasm of breast; Z79.82 Long term (current) use of aspirin; Z95.2 Presence of prosthetic heart valve
CPT/HCPCS: 36415; 36430; 70450; 71045; 72100; 73020; 73130; 73502; 80048; 80053; 81001; 82274; 82607; 82728; 82746; 82948; 83036; 83540; 83550; 83735; 84145; 84443; 85014; 85018; 85025; 85027; 85055; 85610; 85730; 86850; 86900; 86901; 86920; 87086; 87186; 87635; 87637; 93970; 94640; 96365; 96375; 96376; 97110; 97161; 97166; 97530; 99285; A9270; G0378; J0696; J2270; J2405; J7040; J7050; P9016

== ENCOUNTER 2023-12-20 09:01 | Inpatient (IN) | payer MEDICARE, SELFPAY ==
[2023-12-20] VITALS (44 sets, daily range): BP systolic 100–150; BP diastolic 49–105; PULSE 89–150; RESP 18–43; TEMP 36.4–37.4; O2SAT 92–100; BMI 42.0
--- NOTE | ~2023-12-20 | CT_ITS ---
EXAMINATION: CT brain wo con DATE: 12/25/2023 11:45 INDICATION: Confusion. Altered mental status. TECHNIQUE: Computed tomography (CT) of the head was performed without intravenous contrast. The mA wa s adjusted according to patient size. Iterative reconstruction technique was employed. The dose-lengt h product was 681.00 mGy-cm. COMPARISON: Head CT 10/13/2023 FINDINGS: There are scattered areas of low attenuation in the cerebral white matter, which is within normal limits for the patient's age. There is no intracranial hemorrhage, acute infarction, or abnorm al intracranial mass lesion. The ventricles are normal in size. There are likely changes of ocular le ns replacement surgeries. There is mild mucosal thickening in the paranasal sinuses. The mastoid air cells are normal. IMPRESSION: 1. Normal aging brain. Reviewed, dictated and finalized at location A. IMPRESSION: 1. Normal aging brain.
--- NOTE | ~2023-12-20 | XR_ITS ---
EXAMINATION: XR chest 1V portable DATE: 12/20/2023 10:06 INDICATION: Shortness of breath and cough. TECHNIQUE: A single frontal view of the chest was obtained. COMPARISON: right humerus radiographs 11/21/23 FINDINGS: A calcified right lung nodule is consistent with old granulomatous disease. There is a coar se interstitial opacities a pattern throughout the lungs bilaterally. There are airspace opacities in right lower lung zone and left mid and lower lung zones. There are small pleural effusions. No pneum othorax. Cardiomegaly is noted. There are changes of aortic valve replacement. Again seen is a two-pa rt fracture of proximal right humerus. IMPRESSION: 1. Diffuse lung disease, consistent with pulmonary edema versus pneumonia. 2. Small pleural effusions. 3. Cardiomegaly. Reviewed, dictated and finalized at location A.
--- NOTE | 2023-12-20 09:14 | ECG_ITS ---
Measurements Intervals [place] Rate: 140 P: IA: 0 QRS: 61 QRSD: 134 T: 29 QT: 318 QTc: 486 Interpretive Statements ATRIAL FIBRILLATION WITH RAPID VENTRICULAR RESPONSE WITH ABERRANT CONDUCTION OR VENTRICULAR PREMATURE COMPLEXES BASELINE ARTIFACT RIGHT BUNDLE BRANCH BLOCK ABNORMAL ECG COMPARED TO ECG 08/19/2021 15:26:17 ATRIAL FIBRILLATION NOW PRESENT ABERRANT CONDUCTION OF SUPRAVENTRICULAR BEAT(S) NOW PRESENT RIGHT BUNDLE-BRANCH BLOCK NOW PRESENT Electronically Signed On 12-20-2023 14:36:07 CDT by Antoine Reese M.D.
[2023-12-20 09:52] LABS: Alveolar/Arterial O2 Gradient 104.7 mmHg; Base Excess ABG 4.5 mEq/l (+/-2.0); Carboxyhemoglobin 0.8 % THb (0-2.0); Fractional Inspired Oxygen 32 %; HCO3 ABG 29.7 mEq/l (22.0-26.0); Methemoglobin ABG 0.3 %THb (0-1.5); Oxygen Content ABG 14.9 %vol (16.0-22.0); Oxygen Saturation ABG 93.9 % (95.0-100.0); Oxyhemoglobin 91.3 % THb (90.0-100.0); PCO2 ABG 46.8 mmHg (35.0-45.0); PO2 ABG 68.7 mmHg (80.0-100.0); PO2 FiO2 Ratio Arterial Blood 2.15 %; Reduced Hemoglobin 7.6 %THb (0-5.0); Total Hemoglobin 11.6 g/dL (12.0-18.0)
[2023-12-20 09:53] LABS: Device NASAL CANNULA; Site Drawn LEFT BRACHIAL
[2023-12-20 10:09] LABS: Basophils Percent Auto 0.5 % (0.2-1.2); Eosinophils Percent Auto 0.1 % (0-4.4); Hematocrit 34.1 % (37.0-47.0); Hemoglobin 10.4 g/dL (12.0-15.0); Immature Granulocyte Absolute 0.04 K/mm3 (0.00-0.031); Immature Granulocyte Percent A 0.5 % (0-0.5); Lymphocytes Absolute Auto 1.06 K/mm3 (0.9-3.2); Lymphocytes Percent Auto 12.8 % (18.3-44.2); Mean Corpuscular HGB Conc 30.5 g/dl (32-36); Mean Corpuscular Hemoglobin 31.7 pg (26-34); Mean Platelet Volume 10.3 fl (7.4-10.4); Monocytes Absolute Auto 0.5 K/mm3 (0.1-0.6); Monocytes Percent Auto 5.5 % (2.6-8.5); Neutrophils Absolute Auto 6.7 K/mm3 (1.3-6.7); Neutrophils Percent Auto 80.6 % (45.5-73.1); Platelet Count Result 157 k/mm3 (150-375); Red Blood Count 3.28 M/mm3 (4.2-5.4); White Blood Count 8.3 K/mm3 (4.5-10.0)
[2023-12-20] MEDS: dilTIAZem HCl INJ 25 MG/5 ML VIAL 10 MG IV PUSH (10:17)
[2023-12-20 10:22] LABS: Alanine Aminotransferase 25 U/L (6-35); Albumin Level 3.3 g/dL (3.5-5.1); Alkaline Phosphatase 120 U/L (38-126); Anion Gap 5 mmol/L (4-12); Aspartate Amino Transferase 47 U/L (14-36); Bilirubin,Total 1.3 mg/dL (0.2-1.3); Blood Urea Nitrogen 24 mg/dL (7-17); Calcium 8.4 mg/dL (8.4-10.2); Carbon Dioxide 35 mmol/L (22-30); Chloride 95 mmol/L (98-107); Estimated CRCL calculation 30 ml/min; Estimated Glomerular Filt Rate 42; Glucose 165 mg/dL (65-110); Potassium 3.3 mmol/L (3.4-5.0); Sodium 135 mmol/L (137-145)
--- NOTE | 2023-12-20 10:24 | ED.GENADULT ---
HPI - General Adult General Chief complaint: Shortness of Breath/Dyspnea Stated complaint: SOB Time Seen by Provider: 12/20/23 09:03 History of Present Illness HPI narrative: Patient is an 88-year-old female who presents ER with shortness of breath. Patient has some very mild dementia that daughter reports is worse today. Patient sleeps with CPAP and is not typically requiring oxygen. Patient had significantly increased shortness of breath today. She has history of CHF as well as COPD. She has been getting nebulizer treatments at the [facility] without improvement. On arrival here patient with increased work of breathing and poor air movement on auscultation. There is diffuse wheezing. No recent reports of fever productive cough. Daughter reports that patient is a DNR with comfort focused measures. They would not want a ventilator. Related Data Home Medications Medication Instructions Recorded Confirmed multivitamin 1 tablet PO DAILY 09/06/19 12/20/23 polyethylene glycol 3350 17 17 gm PO DAILY 09/06/19 12/20/23 gram/dose oral powder aspirin 81 mg tablet,delayed 81 mg PO DAILY 06/25/21 12/20/23 release (Adult Low Dose Aspirin) allopurinol 100 mg tablet 100 mg PO Q8H 12/20/23 12/20/23 atorvastatin 80 mg tablet 80 mg PO HS 12/20/23 12/20/23 calcium carbonate 500 mg calcium 500 mg PO PRN Heartburn 12/20/23 (1,250 mg) chewable tablet hydrocodone 5 mg-acetaminophen 325 1 tablet PO Q8H PRN SOB 12/20/23 12/20/23 mg tablet ipratropium 0.5 mg-albuterol 3 mg 3 ml inhalation Q6H PRN 12/20/23 12/20/23 (2.5 mg base)/3 mL nebulization SOB/WHEEZING soln potassium chloride 10 mEq 10 meq PO DAILY 12/20/23 12/20/23 tablet,extended release Allergies Allergy/AdvReac Type Severity Reaction Status Date / Time Penicillins Allergy Mild Unknown Verified 11/21/23 09:01 amoxicillin Allergy Unknown Unknown Verified 11/21/23 09:01 ampicillin Allergy Unknown Unknown Verified 11/21/23 09:01 azithromycin Allergy Unknown Unknown Verified 11/21/23 09:01 codeine Allergy Unknown Unknown Verified 11/21/23 09:01 gabapentin Allergy Unknown Unknown Verified 11/21/23 09:01 Iodinated Contrast Media Allergy Unknown Unknown Verified 11/21/23 09:01 levofloxacin Allergy Unknown Unknown Verified 11/21/23 09:01 peanut Allergy Swelling Verified 12/20/23 15:10 of Lip/Tongue/Throat Contrast Media Allergy Unknown UNKNOWN Uncoded 11/21/23 09:01 Review of Systems Review of Systems: ROS unobtainable: Yes unobtainable due to mental status PMFSH Past Medical History Medical History Allergies Anemia Anxiety Arthritis Asthma Ataxia Breast cancer Chronic kidney disease Chronic obstructive pulmonary disease Coronary artery disease Decubitus ulcer Depression Gastroesophageal reflux disease Gout Heart failure of unknown type Hypertension Morbid obesity Obstructive sleep apnea on CPAP Osteoporosis Recurrent urinary tract infection Stroke Thrombocytopenia Thyroid disease Type 2 diabetes mellitus Weakness of both legs Surgical History Surgical History History of aortic valve replacement with tissue graft History of back surgery History of cataract extraction History of hysterectomy History of tonsillectomy Family History Family History Mother Family history of coronary artery disease Family history of heart disease in male family member before age 55 Acute myocardial infarction Sibling Family history of liver disease Father Family history of heart disease in male family member before age 55 Other Diabetes mellitus Family history of cardiovascular disease Family history of diabetes mellitus in first degree relative Family history of kidney disease Hypertension Social History Social History (Reviewed 11/21/23 @ 09:42 by Venita
[2023-12-20 10:25] LABS: Lactic Acid Reflex 1.9 mmol/L (0.7-2.0)
[2023-12-20 10:27] LABS: NT Pro B Type Natriuretic Pept 4690 pg/mL (19.9-100)
[2023-12-20 10:45] LABS: Influenza A QL RT-PCR Negative (Negative); Influenza B QL RT-PCR Negative (Negative); RSV RNA, RT-PCR Negative (Negative); SARS-CoV-2 RNA PCR Negative (Negative)
[2023-12-20] MEDS: dilTIAZem 100 MG/100 ML 100 MG/100 ML BAG IV CONT (10:59)
[2023-12-20] MEDS: FUROSEMIDE INJ 40 MG/4 ML VIAL IV PUSH (11:00)
--- NOTE | 2023-12-20 14:20 | PM.IMHP ---
H&P: HPI History of Present Illness Date/Time: 12/20/23 14:20 Chief Complaint: acute respiratory failure with hypercapnia Narrative: 88-year-old female with a PMHx: of but not limited to, COPD, uses home oxygen at 4 L, GERD, anxiety, morbid obesity, type 2 diabetes, early onset dementia, who reports acute worsening dyspnea. Patient reports she does have a history of COPD normally wears 4 L oxygen NC she reports for the last 2 days she has been having increased SOB with mild exertion. She denies any chest pain, fever chills nausea vomiting. Patient reports she does live in [place] prison. [id number] is by the bedside, she is able to provide only provide limited HPI , but she does mention that her in the family have discussed a possible future option DNR with comfort measures, but at this time they have decided on DNR ED Work-up reveals: Initial vitals: b/p 133/82, rr24, pr104, sp02 93 % on 4L NC, T: 97.4, initial EKG shows atrial fibrillation with rapid ventricular response Review of Systems Review of Systems: ROS unobtainable: Yes unobtainable due to mental status PMFSH Past Medical History Medical History Allergies Anemia Anxiety Arthritis Asthma Ataxia Breast cancer Chronic kidney disease Chronic obstructive pulmonary disease Coronary artery disease Decubitus ulcer Depression Gastroesophageal reflux disease Gout Heart failure of unknown type Hypertension Morbid obesity Obstructive sleep apnea on CPAP Osteoporosis Recurrent urinary tract infection Stroke Thrombocytopenia Thyroid disease Type 2 diabetes mellitus Weakness of both legs Surgical History Surgical History History of aortic valve replacement with tissue graft History of back surgery History of cataract extraction History of hysterectomy History of tonsillectomy Family History Family History Mother Family history of coronary artery disease Family history of heart disease in male family member before age 55 Acute myocardial infarction Sibling Family history of liver disease Father Family history of heart disease in male family member before age 55 Other Diabetes mellitus Family history of cardiovascular disease Family history of diabetes mellitus in first degree relative Family history of kidney disease Hypertension Social History Social History (Reviewed 04/03/24 @ 20:20 by DINESH Francis Social History: caffeine use Surrogate medical decision maker: Carli Michaels, daughter. Code status: Full code. Smoking status: Never smoker Second hand tobacco smoke exposure: Yes () Alcohol intake: never Substance use: never Substance use type: does not use Do You Feel Safe in your Home?: Yes Lack of Transportation: No Lack of Food: Never True Current Housing: I Have Housing Concerned About Future Housing: No Difficulty Paying Gas/Electric Bills: No Difficulty Paying for Meds: No Currently Unemployed: No Education: Grade School Difficulty w/ Childcare or Family Care: No Living arrangements: alone Occupation/Education: retired Additional occupation/education comments: [employer]. Spiritual care concerns: No Meds Home Medications and Allergies Home Medications Medication Instructions Recorded Confirmed Type multivitamin 1 tablet PO DAILY 09/06/19 12/20/23 History polyethylene glycol 3350 17 17 gm PO DAILY 09/06/19 12/20/23 History gram/dose oral powder aspirin 81 mg tablet,delayed 81 mg PO DAILY 06/25/21 12/20/23 History release (Adult Low Dose Aspirin) albuterol sulfate 90 mcg/actuation 2 puff inhalation Q4H PRN 01/27/23 12/20/23 Rx aerosol inhaler (Ventolin HFA) shortness of breath or wheezing #18 grams ezetimibe 10 mg tablet 10 mg PO DAILY #90
[2023-12-20] MEDS: TOLNAFTATE 1% POWDER 45 GM BTL 1 APPLIC TOPICAL ×2 (17:40→22:12)
[2023-12-20 20:47] LABS: Glucose Point of Care 138 mg/dl (65-105)
[2023-12-20] MEDS: IPRATROPIUM 0.5 MG/ALBUTEROL SULFATE 2.5 MG AMPUL.NEB 3 ML INHALATION (21:07)
[2023-12-20] MEDS: LORazepam (*CRX) 0.5 MG TABLET PO (22:08)
[2023-12-20] MEDS: ATORVASTATIN 40 MG TABLET 80 MG PO (22:08)
[2023-12-20] MEDS: rOPINIRole HCL 1 MG TABLET PO (22:08)
[2023-12-21] VITALS (37 sets, daily range): BP systolic 99–139; BP diastolic 43–70; PULSE 72–743; RESP 20–38; TEMP 35.7–36.5; O2SAT 97–100; BMI 41.5
--- NOTE | 2023-12-21 | ECHO_ITS ---
Patient Info Name: Deena Cuevas Age: 88 years : 1935 Gender: Female Ht: 60 in Wt: 212 lbs BSA: 2.07 m2 HR: 88 bpm BP: 118 / 51 mmHg Heart Rhythm: Atrial Fibrillation Technical Quality: Fair Exam Date: 12/21/2023 11:18 AM Exam Location: Echo Lab Patient Status: Inpatient Admit Date: 12/20/2023 Staff Ordering Physician: Paul Lafleur MD [employer] Service Helper: Lorna Briones RDCS Attending Provider: Gema Weaver MD Exam Type: CA echo doppler color flow Study Info Indications I48.1 - Persistent atrial fibrillation Complete two-dimensional, color flow and Doppler transthoracic echocardiogram is performed. Strain analysis performed. Summary 1. Complete two-dimensional, color flow and Doppler transthoracic echocardiogram is performed. 2. Left ventricular chamber dimension is normal. 3. Left ventricular systolic function is mildly reduced, estimated at 45-50%. 4. There is mildly increased left ventricular wall thickness. 5. Right ventricular systolic function is normal. 6. Left atrial chamber dimension is moderately enlarged. 7. Right atrial chamber dimension is moderately enlarged. 8. The bioprosthetic aortic valve is not well visualized. Mean gradient is 7mmHg. 9. There is moderate mitral valve regurgitation. 10. There is mild tricuspid valve regurgitation. 11. There is mild pulmonic regurgitation. Left Ventricle Left ventricular chamber dimension is normal. Left ventricular systolic function is mildly reduced, estimated at 45-50%. There is mildly increased left ventricular wall thickness. The left ventricular diastolic function is indeterminate. Global longitudinal strain is abnormal at -7 %. Right Ventricle Right ventricular chamber dimension is normal. Right ventricular systolic function is normal. Left Atria Left atrial chamber dimension is moderately enlarged. Right Atria Right atrial chamber dimension is moderately enlarged. Atrial Septum Intact interatrial septum visualized by color flow imaging. Aortic Valve The bioprosthetic aortic valve is not well visualized. Mean gradient is 7mmHg. There is trace regurgitation of the bioprosthetic aortic valve. Pulmonic Valve The pulmonic valve is not well visualized. There is mild pulmonic regurgitation. Mitral Valve The mitral valve has thickened leaflets and calcified leaflets. There is moderate mitral valve regurgitation. The mitral valve annulus is moderately calcified. Tricuspid Valve There is mild tricuspid valve regurgitation. Pericardium/Pleural There is no pericardial effusion. Inferior Vena Cava Normal inferior vena cava with <50% collapse upon inspiration consistent with elevated right atrial pressure, 8 mmHg. Aorta The aortic root size at the sinus of Valsalva is normal. Left Ventricular Outflow Tract Name Value Normal LVOT 2D LVOT Diameter 2.0 cm LVOT Doppler LVOT Peak Gradient 3 mmHg LVOT Mean Gradient 2 mmHg LVOT VTI 16 cm LVOT VTI/AV VTI Ratio 0.5 LVOT Stroke Volume 53 ml LVOT CO 3.4 l/min LVOT CI
[2023-12-21 00:59] LABS: Glucose Point of Care 122 mg/dl (65-105)
[2023-12-21 04:46] LABS: Basophils Percent Auto 0.6 % (0.2-1.2); Eosinophils Absolute Auto 0.1 K/mm3 (0-0.3); Eosinophils Percent Auto 0.9 % (0-4.4); Hematocrit 29.4 % (37.0-47.0); Hemoglobin 9.1 g/dL (12.0-15.0); Immature Granulocyte Absolute 0.04 K/mm3 (0.00-0.031); Immature Granulocyte Percent A 0.6 % (0-0.5); Lymphocytes Absolute Auto 1.22 K/mm3 (0.9-3.2); Lymphocytes Percent Auto 18.5 % (18.3-44.2); Mean Corpuscular Hemoglobin 31.9 pg (26-34); Mean Corpuscular Volume 103.2 fl (80-100); Mean Platelet Volume 10.7 fl (7.4-10.4); Monocytes Absolute Auto 0.6 K/mm3 (0.1-0.6); Monocytes Percent Auto 9.6 % (2.6-8.5); Neutrophils Absolute Auto 4.6 K/mm3 (1.3-6.7); Neutrophils Percent Auto 69.8 % (45.5-73.1); Platelet Count Result 130 k/mm3 (150-375); Red Blood Count 2.85 M/mm3 (4.2-5.4); Red Cell Distribution Width 16.7 % (11.5-14.5); White Blood Count 6.6 K/mm3 (4.5-10.0)
[2023-12-21 04:57] LABS: Alanine Aminotransferase 22 U/L (6-35); Albumin Level 2.9 g/dL (3.5-5.1); Alkaline Phosphatase 102 U/L (38-126); Anion Gap 4 mmol/L (4-12); Aspartate Amino Transferase 46 U/L (14-36); Bilirubin,Total 1.6 mg/dL (0.2-1.3); Blood Urea Nitrogen 27 mg/dL (7-17); Calcium 8.3 mg/dL (8.4-10.2); Carbon Dioxide 35 mmol/L (22-30); Chloride 95 mmol/L (98-107); Estimated CRCL calculation 28 ml/min; Estimated Glomerular Filt Rate 39; Glucose 107 mg/dL (65-110); Potassium 3.5 mmol/L (3.4-5.0); Sodium 134 mmol/L (137-145)
[2023-12-21] MEDS: dilTIAZem 100 MG/100 ML 100 MG/100 ML BAG IV CONT (05:40)
[2023-12-21] MEDS: FUROSEMIDE INJ 100 MG/10 ML VIAL 80 MG IV PUSH (05:41)
[2023-12-21] MEDS: LEVOTHYROXINE SODIUM 125 MCG TABLET PO (05:41)
--- NOTE | 2023-12-21 06:43 | PC.NURSE ---
12/20/231929 During bedside report this nurse was told that patient wanted to change her code status to full code. Patient was asked orientation questions at that time and answered all questions appropriately. She stated that she wanted everything done, including chest compressions and intubation in the event of an emergency. With both nurses at bedside to verify patient mentation and wishes, a new order was placed and patient made a full code. As this nurse was walking out of the patient room and approached the nurse's station CRYSTAL Ferreira was calling and asked why this order was placed under her name and requested that the order be removed as she did not speak to the patient herself nor had anyone called her. I explained that my intention was to notify her as I was just walking back to the nurse's station from speaking with the patient. I clearly expressed to Hanna the patient's wishes. She demanded that I discontinue the order and that she would reject it. Hanna did not come to evaluate or speak to the patient after this event. The patient remained without a code status order overnight.
[2023-12-21 07:55] LABS: Glucose Point of Care 108 mg/dl (65-105)
[2023-12-21] MEDS: FLUTICASONE/UMECLIDIN/VILANTER 100-62.5-25 MCG ELLIPTA 1 PUFF INHALATION (08:09)
[2023-12-21] MEDS: polyethylene glycoL 3350 17 GM POWD.PACK PO (08:46)
[2023-12-21] MEDS: EZETIMIBE 10 MG TABLET PO (08:46)
[2023-12-21] MEDS: ASPIRIN 81 MG ENTERIC TABLET PO (08:47)
[2023-12-21] MEDS: PANTOPRAZOLE 40 MG TABLET PO (08:47)
[2023-12-21] MEDS: POTASSIUM CHLORIDE 10 MEQ ER TABLET PO (08:47)
[2023-12-21] MEDS: MULTIVITAMINS THERAPEUTIC TAB (*BKC) 1 TABLET PO (08:48)
[2023-12-21] MEDS: TOLNAFTATE 1% POWDER 45 GM BTL 1 APPLIC TOPICAL ×2 (08:48→21:24)
--- NOTE | 2023-12-21 09:36 | PM.IMPN ---
Progress Note: A&P Assessment and Plan (1) Atrial fibrillation with rapid ventricular response: Code(s): I48.91 - Unspecified atrial fibrillation Status: Acute (2) Acute hypercapnic respiratory failure: Code(s): J96.02 - Acute respiratory failure with hypercapnia Status: Acute (3) Pulmonary edema: Code(s): J81.1 - Chronic pulmonary edema Status: Acute (4) Unable to care for self: Code(s): Z78.9 - Other specified health status Status: Acute (5) Abnormal urinalysis: Code(s): R82.90 - Unspecified abnormal findings in urine Status: Acute (6) Obstructive sleep apnea on CPAP: Code(s): G47.33 - Obstructive sleep apnea (adult) (pediatric) Status: Acute (7) Macrocytic anemia: Code(s): D53.9 - Nutritional anemia, unspecified Status: Acute Plan (1) Atrial fibrillation with rapid ventricular response: ?Code(s): I48.91 - Unspecified atrial fibrillation ?Status:?Acute ?Assessment and Plan: ? -New onset atrial fibrillation with RVR -Continue diltiazem IV per protocol -Consult cardiology in the a.m. 12/20 f/u echo (2) Acute hypercapnic respiratory failure: ?Code(s): J96.02 - Acute respiratory failure with hypercapnia ?Status:?Acute ?Assessment and Plan: ?-continue telemetry monitoring ?- patient on BiPAP she is tolerating well has declined intubation should prognosis change -Continue oxygen titration as needed to keep SpO2 above 92%. 12/20: ABG showed hypercapnia and hypoxemic respiratory failure, likely resulting from COPD exacerbation and overload Patient is on BiPAP COPD exacerbation History of COPD - normally patient on 4 L NC at baseline -Patient is tolerating BiPAP, she has declined to be intubated if her prognosis is poor Chest x-ray shows diffuse interstitial changes need to r/u interstitial lung disease, breast atypical pneumonia? Start Levaquin 500 mg IV daily, DuoNeb scheduled q.6 hours, albuterol nebulizer q.4 p.r.n., methylprednisolone 40 mg q.6 hours IV Consult crankshaft balancer Pulmonary edema: ?Code(s): J81.1 - Chronic pulmonary edema ?Status:?Acute ?Assessment and Plan: ?- give IV Lasix 80 mg once in the a.m. -Monitor I&O -use pure wick for aid with? moderate diuresing Continue IV Lasix per concrete block plant supervisor Acute metabolic encephalopathy Patient has not oriented x3, patient is somnolent, Likely from multiple comorbidities, worse mental status due to respiratory failure, respiratory failure, pulmonary congestion, Neuro check (4) Unable to care for self: ?Code(s): Z78.9 - Other specified health status ?Status:?Acute ?Assessment and Plan: ?-patient currently resides at snf (5) Macrocytic anemia: ?Code(s): D53.9 - Nutritional anemia, unspecified ?Status:?Acute ?Assessment and Plan: ?-hgb stable -Continue to monitor recheck CMP, CBC? in the a.m. (6) Hypertension: ?Code(s): I10 - Essential (primary) hypertension ?Status:?Acute ?Assessment and Plan: ?-continue monitor vital signs q.2 hours patient is not on any home HTN medication (7) Gastroesophageal reflux disease: ?Code(s): K21.9 - Gastro-esophageal reflux disease without esophagitis ?Status:?Acute ?Assessment and Plan: ?-continue home medication pantoprazole 40 mg p.o. every day (8) Type 2 diabetes mellitus: ?Code(s): E11.9 - Type 2 diabetes mellitus without complications ?Status:?Acute ?Assessment and Plan: Chronic last A1c was 10/13/2023 at 5.3 -Patient not on any home medications for diabetes -Initiate bedside glucose management q.4 hours CKD (chronic kidney disease) stage 3, GFR 30-59 ml/min: ?Qualifiers: ?Chronic kidney disease stage 3 subtype:?stage 3a (GFR 45-59)? Qualified Code(s):?N18.31 - Chronic kidney disease, stage 3a ?Code(s): N18.30 - Chronic kidney disease, stage 3 unspecified ?Status:?Acute ? ?
[2023-12-21 10:22] LABS: NT Pro B Type Natriuretic Pept 7010 pg/mL (19.9-100)
[2023-12-21 10:25] LABS: Alveolar/Arterial O2 Gradient 69.4 mmHg; Base Excess ABG 7.7 mEq/l (+/-2.0); Fractional Inspired Oxygen 30 %; HCO3 ABG 32.5 mEq/l (22.0-26.0); Oxygen Content ABG 13.5 %vol (16.0-22.0); Oxygen Saturation ABG 97.1 % (95.0-100.0); PCO2 ABG 47.2 mmHg (35.0-45.0); PO2 FiO2 Ratio Arterial Blood 2.97 %; pH ABG 7.456 (7.350-7.450)
[2023-12-21 10:27] LABS: Device NON-INVASIVE VENT; Modified Allen's Test Pass; Non-Invasive Expiratory Pressure 8 CMH2O; Non-Invasive Inspiratory Pressure 16 CMH2O; Non-Invasive Vent Rate 4 /MIN; Site Drawn LEFT RADIAL
[2023-12-21 10:36] LABS: Procalcitonin 0.4 ng/mL
--- NOTE | 2023-12-21 11:27 | PM.CNCAR ---
Assessment and Plan Assessment and plan (1) Acute heart failure: Code(s): I50.9 - Heart failure, unspecified Status: Acute Assessment and Plan: BNP 7010. CXR with diffuse lung disease, likely pulmonary edema versus pneumonia, small pleural effusions. Echocardiogram ordered and pending. Given IV Lasix on admission. Will continue with IV Lasix 40mg BID. Will follow up on echocardiogram results. (2) Atrial fibrillation with rapid ventricular response: Code(s): I48.91 - Unspecified atrial fibrillation Status: Acute Assessment and Plan: New diagnosis of atrial fibrillation. Check TSH level. Obtain echocardiogram. Will stop Diltiazem drip and start PO Metoprolol. Pursue rate control strategy for now. [id number] VASC is 6, therefore, anticoagulation would be indicated, however I am concern about her bleeding risk as she had a fall in September. No family at bedside currently during the time of my evaluation. Will need to discuss with family regarding her risk of stroke, risk of bleeding, risks vs benefits of anticoagulation. (3) Acute hypercapnic respiratory failure: Code(s): J96.02 - Acute respiratory failure with hypercapnia Status: Acute Assessment and Plan: On BIPAP. Management as per primary team. (4) Type 2 diabetes mellitus: Code(s): E11.9 - Type 2 diabetes mellitus without complications Status: Acute Assessment and Plan: Management as per primary team. (5) Chronic obstructive pulmonary disease: Code(s): J44.9 - Chronic obstructive pulmonary disease, unspecified Status: Acute Assessment and Plan: Management as per primary team. (6) Chronic kidney disease: Code(s): N18.9 - Chronic kidney disease, unspecified Status: Acute Assessment and Plan: Will closely monitor renal function while actively diuresing. Plan Recommendations and plan discussed with Hospitalist. History of Present Illness History of Present Illness Consult date/time: 12/21/23 11:27 Requesting physician: Hanna Guerrero APRN Consult reason: atrial fibrillation Reason For Visit: AFIB WITH RVR,RESPIRATORY FAILURE,PULMONARY EDEMA Narrative: We are consulted for atrial fibrillation with RVR. This is an 88 year old female with COPD, chronic hypoxic respiratory failure on 4L of oxygen, GERD, morbid obesity, type 2 diabetes mellitus, dementia who presented with worsening shortness of breath. Has been having increased shortness of breath for the past 2 days. Patient lives in a custodial, can only provide limited history. No family at bedside currently. In the ER, she was found to be in atrial fibrillation with RVR. Started on Diltiazem drip and heart rates have been in the 90s since then. CXR with pulmonary edema, she was given IV Lasix. She states she feels okay today. Review of Systems Review of Systems: All systems reviewed & are unremarkable except as noted in HPI and below (HPI) [facility] Past Medical History Medical History Allergies Anemia Anxiety Arthritis Asthma Ataxia Breast cancer Chronic kidney disease Chronic obstructive pulmonary disease Coronary artery disease Decubitus ulcer Depression Gastroesophageal reflux disease Gout Heart failure of unknown type Hypertension Morbid obesity Obstructive sleep apnea on CPAP Osteoporosis Recurrent urinary tract infection Stroke Thrombocytopenia Thyroid disease Type 2 diabetes mellitus Weakness of both legs Surgical History Surgical History History of aortic valve replacement with tissue graft History of back surgery History of cataract extraction History of hysterectomy History of tonsillectomy Family History Family History Mother Family history of coronary artery disease Family history of heart disease in male family m
[2023-12-21 12:36] LABS: Glucose Point of Care 126 mg/dl (65-105)
--- NOTE | 2023-12-21 12:55 | PM.CNPUL ---
Assessment and Plan Assessment and plan (1) Respiratory failure with hypoxia and hypercapnia: Code(s): J96.91 - Respiratory failure, unspecified with hypoxia; J96.92 - Respiratory failure, unspecified with hypercapnia Status: Acute Assessment and Plan: Patient with a history of chronic hypoxemic respiratory failure requiring 4 L nasal cannula 24 -7. She also has a history of restrictive lung disease, no tobacco use, no bullous emphysema on her CT scan, morbid obesity. patient presented with shortness of breath, diffuse wheezing, Developed AFib with RVR, white blood cell count 8.3, serum bicarbonate 25, BNP 4690, ABG on 3 L 7.42/47/69, chest x-ray with congestion, cardiomegaly and small bilateral pleural effusions. although she carries a history of COPD on trilogy inhaler she has no smoking history, her PFTs are restrictive without evidence of obstruction and her CT scan of the chest in 2019 shows no emphysematous changes. Etiology of patient's respiratory failure with hypoxia and hypercarbia include AFib RVR with congestion and fluid overload, doubt COPD exacerbation, doubt pneumonia. COVID, influenza and RSV RT PCR studies negative. Plan: I will discontinue methylprednisolone. I will discontinue DuoNebs and trilogy inhaler as she has had tachyarrhythmias in place her on ipratropium 0.5 mg nebs q.6 hours. Patient has been started on Levaquin and will continue this for now. Agree with as aggressive diuresis as tolerated by her cardiac and renal systems. She had no hypercarbia on her initial blood gas that would qualify her for noninvasive ventilation she is on the noninvasive ventilation due to work of breathing from her fluid overload. She said that the BiPAP pressures were uncomfortable for her and that she had improved since she got to the emergency room. I changed her to a noninvasive ventilator mode with AVAPS and adjusted the settings to comfort resulting in a rate of 20, tidal volume 500, EPAP 5, minimal inspiratory pressure 6, maximal inspiratory pressure 25, inspiratory time 1.2, rise of 5 and 30% FiO2 with saturations 100%. I will check a blood gas in the morning. Will follow with you. (2) Obstructive sleep apnea on CPAP: Code(s): G47.33 - Obstructive sleep apnea (adult) (pediatric) Status: Acute Assessment and Plan: patient has mild obstructive sleep apnea diagnosed in 2014 in had a difficult CPAP titration and the recommendation was to return for CPAP titration or 2 trial auto PAP 6-15. pulmonology note from 07/23/2019 states the patient is on auto PAP 6-15 with 100% compliance with average usage at 8:00 a.m. and 43 minutes and an AHI of 0.2. Median CPAP pressure was 7.3. She is morbidly obese with a BMI of 41.5. TSH is 3.27. She has congestive heart failure and once she is better diuresed will reassess for daytime hypercarbia as she may have obesity hypoventilation syndrome. Plan: Obstructive sleep apnea will be treated with the above-mentioned noninvasive ventilation with the AVAPS mode. History of Present Illness History of Present Illness Consult date: 12/21/23 Chief complaint: AFIB WITH RVR,RESPIRATORY FAILURE,PULMONARY EDEMA Narrative: 12/21/2023: This is a new pulmonary consult for COPD exacerbation. 88-year-old with a history of CVA, congestive heart failure, coronary artery disease, aortic valve replacement, hypertension, hypothyroidism, breast cancer, non and insulin-dependent diabetes, anemia, mild dementia, decubitus ulcer, recent fall with proximal right humerus fracture on 10/18/2023. patient has mild obstructive sleep apnea diagnosed in 2014 in had a difficult CPAP titration and the recommendation was to return for CPAP titration or 2 trial auto PAP 6-15. pulmonology note from 07/23/2019 states the patient is on auto PAP 6-15 with 100% compliance with average usage at 8:00 a.m. and 43 minutes and an AHI of 0.2. Patient carries a diagnosis of
[2023-12-21] MEDS: methylPREDNISolone SOD SUCC 40 MG VIAL IV PUSH (12:56)
[2023-12-21] MEDS: METOPROLOL TARTRATE 50 MG TAB PO ×2 (12:56→21:23)
[2023-12-21] MEDS: levoFLOXacin 500 MG/D5W 100 ML 500 MG/100 ML BAG 100 MG IVPB (12:58)
[2023-12-21] MEDS: IPRATROPIUM 0.5 MG/ALBUTEROL SULFATE 2.5 MG AMPUL.NEB 3 ML INHALATION (14:44)
[2023-12-21 16:41] LABS: Glucose Point of Care 146 mg/dl (65-105)
[2023-12-21] MEDS: FUROSEMIDE INJ 40 MG/4 ML VIAL IV PUSH (17:57)
[2023-12-21 18:25] LABS: Glucose Point of Care 179 mg/dl (65-105)
[2023-12-21 20:10] LABS: Glucose Point of Care 191 mg/dl (65-105)
[2023-12-21] MEDS: IPRATROPIUM BR 0.02% INH SOLN 0.5 MG/2.5 ML VIAL INHALATION (20:22)
[2023-12-21] MEDS: ATORVASTATIN 40 MG TABLET 80 MG PO (21:23)
[2023-12-21] MEDS: rOPINIRole HCL 1 MG TABLET PO (21:24)
[2023-12-21] MEDS: LORazepam (*CRX) 0.5 MG TABLET PO (22:30)
[2023-12-22] VITALS (26 sets, daily range): BP systolic 106–125; BP diastolic 40–58; PULSE 62–87; RESP 16–25; TEMP 36.5–36.8; O2SAT 95–100
[2023-12-22] MEDS: IPRATROPIUM BR 0.02% INH SOLN 0.5 MG/2.5 ML VIAL INHALATION ×2 (02:22→09:32)
[2023-12-22 05:07] LABS: Hematocrit 28.1 % (37.0-47.0); Hemoglobin 8.9 g/dL (12.0-15.0); Immature Granulocyte Absolute 0.03 K/mm3 (0.00-0.031); Immature Granulocyte Percent A 0.6 % (0-0.5); Lymphocytes Absolute Auto 1.03 K/mm3 (0.9-3.2); Lymphocytes Percent Auto 22.2 % (18.3-44.2); Mean Corpuscular HGB Conc 31.7 g/dl (32-36); Mean Corpuscular Hemoglobin 32.6 pg (26-34); Mean Corpuscular Volume 102.9 fl (80-100); Mean Platelet Volume 10.6 fl (7.4-10.4); Monocytes Absolute Auto 0.1 K/mm3 (0.1-0.6); Monocytes Percent Auto 2.6 % (2.6-8.5); Neutrophils Absolute Auto 3.5 K/mm3 (1.3-6.7); Neutrophils Percent Auto 74.6 % (45.5-73.1); Platelet Count Result 121 k/mm3 (150-375); Red Blood Count 2.73 M/mm3 (4.2-5.4); Red Cell Distribution Width 16.8 % (11.5-14.5); White Blood Count 4.6 K/mm3 (4.5-10.0)
[2023-12-22 05:20] LABS: Alanine Aminotransferase 28 U/L (6-35); Albumin Level 2.9 g/dL (3.5-5.1); Alkaline Phosphatase 91 U/L (38-126); Anion Gap 5 mmol/L (4-12); Aspartate Amino Transferase 54 U/L (14-36); Bilirubin,Total 1.1 mg/dL (0.2-1.3); Blood Urea Nitrogen 39 mg/dL (7-17); Calcium 8.6 mg/dL (8.4-10.2); Carbon Dioxide 33 mmol/L (22-30); Chloride 94 mmol/L (98-107); Estimated CRCL calculation 24 ml/min; Estimated Glomerular Filt Rate 33; Glucose 155 mg/dL (65-110); Potassium 3.5 mmol/L (3.4-5.0); Sodium 132 mmol/L (137-145)
[2023-12-22 06:01] LABS: Procalcitonin 0.6 ng/mL
[2023-12-22] MEDS: LEVOTHYROXINE SODIUM 125 MCG TABLET PO (06:52)
[2023-12-22 08:01] LABS: Alveolar/Arterial O2 Gradient 82.8 mmHg; Base Excess ABG 8.2 mEq/l (+/-2.0); Fractional Inspired Oxygen 30 %; HCO3 ABG 32.9 mEq/l (22.0-26.0); Oxygen Content ABG 13.2 %vol (16.0-22.0); Oxygen Saturation ABG 95.8 % (95.0-100.0); Oxyhemoglobin 93.2 % THb (90.0-100.0); PCO2 ABG 46.7 mmHg (35.0-45.0); PO2 ABG 76.2 mmHg (80.0-100.0); PO2 FiO2 Ratio Arterial Blood 2.54 %; pH ABG 7.466 (7.350-7.450)
[2023-12-22 08:03] LABS: Site Drawn LEFT BRACHIAL
[2023-12-22 08:04] LABS: Device NON-INVASIVE VENT; Non-Invasive Vent Rate 16 /MIN
[2023-12-22 08:05] LABS: Non-Invasive Expiratory Pressure 5 CMH2O
[2023-12-22 08:09] LABS: Glucose Point of Care 137 mg/dl (65-105)
[2023-12-22] MEDS: FUROSEMIDE INJ 40 MG/4 ML VIAL IV PUSH ×2 (08:48→19:35)
[2023-12-22] MEDS: METOPROLOL TARTRATE 50 MG TAB PO ×2 (08:48→20:23)
[2023-12-22] MEDS: MULTIVITAMINS THERAPEUTIC TAB (*BKC) 1 TABLET PO (08:48)
[2023-12-22] MEDS: PANTOPRAZOLE 40 MG TABLET PO (08:48)
[2023-12-22] MEDS: POTASSIUM CHLORIDE 10 MEQ ER TABLET PO (08:48)
[2023-12-22] MEDS: TOLNAFTATE 1% POWDER 45 GM BTL 1 APPLIC TOPICAL ×2 (08:48→20:24)
[2023-12-22] MEDS: levoFLOXacin 250 MG/D5W 50 ML 250 MG/50 ML BAG 50 MG IVPB (08:48)
[2023-12-22] MEDS: polyethylene glycoL 3350 17 GM POWD.PACK PO (08:48)
[2023-12-22] MEDS: ASPIRIN 81 MG ENTERIC TABLET PO (08:48)
[2023-12-22] MEDS: EZETIMIBE 10 MG TABLET PO (08:48)
--- NOTE | 2023-12-22 09:06 | PM.PNCARD ---
Progress Note: A&P Assessment and Plan (1) Atrial fibrillation with rapid ventricular response: Code(s): I48.91 - Unspecified atrial fibrillation Status: Acute Plan 88-year-old lady with valvular heart disease previous TAVR done elsewhere records not available to me also has moderate mitral regurgitation and mild LV systolic dysfunction. Atrial fibrillation on the basis of this valvular disease is obviously not surprising. Heart rate has come under good control with metoprolol. We should transition this to metoprolol succinate tomorrow given her evidence of some LV systolic dysfunction. Given her advanced age and frailty anticipate a very conservative approach to this. She should follow-up with her established team manager after discharge from [facility]. Her TAVR valve seems to be functioning relatively well by echo there is mild prosthetic AI by echo and by physical exam. Principal valve lesion now is moderate MR Cornel Greene MD [facility] Subjective Date/time seen: Date of service: 12/22/23 09:06 Interval history: Follow-up visit in this 88-year-old lady we are seeing because of atrial fib with RVR. Patient is awake alert this morning says her breathing is somewhat better. Telemetry demonstrates good heart rate controlled with metoprolol that was started yesterday. Patient reports that she underwent aortic valve replacement and follows with [facility] in [place]. We have no records of any of this. Chest x-ray clearly shows evidence of TAVR aortic valve. Exam Const: Other: Obese elderly lady no immediate distress HENMT: Mouth: Yes moist mucous membranes Eyes: Sclera: sclerae normal Neck: Neck: supple and no JVD Resp: Effort & Inspection: normal respiratory effort Other: A few scant basilar rales are noted Cardio: Rate: regular rate Rhythm: abnormal rhythm irregularly irregular Other: Systolic murmur at the apex and diastolic decrescendo murmur audible at the base, PMI difficult to palpate GI: GI Palp: Yes Soft to palpation Auscultation: normal bowel sounds Skin: General skin exam: normal color Neuro: Other: Alert and oriented Extrem: Other: Very good distal pulses 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 Objective Data Vital Signs Vital Signs: Vital Signs - 24 hr 12/21/23 09:17 12/21/23 09:56 12/21/23 10:00 Temperature Pulse Rate 92 92 Respiratory Rate 26 H Blood Pressure 114/43 L Pulse Oximetry 100 99 Oxygen Delivery BiPAP Oxygen Flow Rate Fraction of Inspired Oxygen 12/21/23 12:12 12/21/23 12:56 12/21/23 14:06 Temperature 36.2 C L Pulse Rate 92 91 81 Respiratory Rate 22 H Blood Pressure 139/62 Pulse Oximetry 99 Oxygen Delivery Oxygen Flow Rate Fraction of Inspired Oxygen 12/21/23 14:36 12/21/23 14:44 12/21/23 14:46 Temperature 36.1 C L Pulse Rate 74 78 743 H Respiratory Rate 27 H 27 H 26 H Blood Pressure 117/68 Pulse Oximetry 100 100 Oxygen Delivery BiPAP Oxygen Flow Rate Fraction of Inspired Oxygen 12/21/23 14:54 12/21/23 15:26 12/21/23 12:00 Temperature 35.7 C L Pulse Rate 76 75 90 Respiratory Rate 28 H 33 H Blood Pressure 116/64 Pulse Oximetry 100 Oxygen Delivery Oxygen Flow Rate Fraction of Inspired Oxygen 12/21/23 12:00 12/21/23 14:00 12/21/23 16:00 Temperature Pulse Rate 85 78 Respiratory Rate Blood Pressure Pulse Oximetry 100 Oxygen Delivery BiPAP Oxygen Flow Rate Fraction of Inspired Oxygen 40 12/21/23 18:09 12/21/23 16:00 12/21/23 18:00 Temperature 36.5 C Pulse Rate 89 77 Respiratory Rate 20 Blood Pressure 127/60 Pulse Oximetry 100 98 Oxygen Delivery BiPAP Oxygen Flow Rate Fraction of Inspired Oxygen 40 12/21/23 19:38 12/21/23 20:22 12/21/23 20:26 Temperature 36.4 C Pulse Rate 81 72 Respiratory Rate 20 24 H Blood Pressure 135/60 Pulse Oximetry 98 97 Oxyge
--- NOTE | 2023-12-22 09:47 | PM.IMPN ---
Progress Note: A&P Assessment and Plan (1) Atrial fibrillation with rapid ventricular response: Code(s): I48.91 - Unspecified atrial fibrillation Status: Acute (2) Acute hypercapnic respiratory failure: Code(s): J96.02 - Acute respiratory failure with hypercapnia Status: Acute (3) Pulmonary edema: Code(s): J81.1 - Chronic pulmonary edema Status: Acute (4) Unable to care for self: Code(s): Z78.9 - Other specified health status Status: Acute (5) Abnormal urinalysis: Code(s): R82.90 - Unspecified abnormal findings in urine Status: Acute (6) Obstructive sleep apnea on CPAP: Code(s): G47.33 - Obstructive sleep apnea (adult) (pediatric) Status: Acute (7) Macrocytic anemia: Code(s): D53.9 - Nutritional anemia, unspecified Status: Acute Plan Atrial fibrillation with rapid ventricular response: ?Code(s): I48.91 - Unspecified atrial fibrillation ?Status:?Acute ?Assessment and Plan: ? -New onset atrial fibrillation with RVR -Continue diltiazem IV per protocol -Consult cardiology in the a.m. 12/20 f/u echo (2) Acute hypercapnic respiratory failure: ?Code(s): J96.02 - Acute respiratory failure with hypercapnia ?Status:?Acute ?Assessment and Plan: ?-continue telemetry monitoring ?- patient on BiPAP she is tolerating well has declined intubation should prognosis change -Continue oxygen titration as needed to keep SpO2 above 92%. 12/20: ABG showed hypercapnia and hypoxemic respiratory failure, likely resulting from COPD exacerbation and fluid overload Patient is on BiPAP 12/21: Continue CPAP, diuretic medications Acute on chronic systolic heart failure Echocardiogram December 21, 2023 ? 1. Complete two-dimensional, color flow and Doppler transthoracic echocardiogram is performed. ? 2. Left ventricular chamber dimension is normal. ? 3. Left ventricular systolic function is mildly reduced, estimated at 45-50%. ? 4. There is mildly increased left ventricular wall thickness. ? 5. Right ventricular systolic function is normal. ? 6. Left atrial chamber dimension is moderately enlarged. ? 7. Right atrial chamber dimension is moderately enlarged. ? 8. The bioprosthetic aortic valve is not well visualized. Mean gradient is 7mmHg. ? 9. There is moderate mitral valve regurgitation. ? 10. There is mild tricuspid valve regurgitation. ? 11. There is mild pulmonic regurgitation. 12/21 Continue furosemide 40 mg b.i.d. IV push, repeat cxr COPD exacerbation History of COPD - normally patient on 4 L NC at baseline -Patient is tolerating BiPAP, she has declined to be intubated if her prognosis is poor Chest x-ray shows diffuse interstitial changes need to r/u interstitial lung disease, breast atypical pneumonia? Start Levaquin 500 mg IV daily, DuoNeb scheduled q.6 hours, albuterol nebulizer q.4 p.r.n., methylprednisolone 40 mg q.6 hours IV Consult transport tank technician 12/21: Discontinue methylprednisolone, nebulizer, per transport tank technician, continue Levaquin IV Pulmonary edema: ?Code(s): J81.1 - Chronic pulmonary edema ?Status:?Acute ?Assessment and Plan: ?- give IV Lasix 80 mg once in the a.m. -Monitor I&O -use pure wick for aid with? moderate diuresing Continue IV Lasix per childbirth educator Acute metabolic encephalopathy Patient has not oriented x3, patient is somnolent, Likely from multiple comorbidities, worse mental status due to respiratory failure, respiratory failure, pulmonary congestion, Neuro check (4) Unable to care for self: ?Code(s): Z78.9 - Other specified health status ?Status:?Acute ?Assessment and Plan: ?-patient currently resides at shelter (5) Macrocytic anemia: ?Code(s): D53.9 - Nutritional anemia, unspecified ?Status:?Acute ?Assessment and Plan: ?-hgb stable -Continue to monitor recheck CMP, CBC? in the a.m. (6) Hypertension: ?Code(s): I10 - Essential (primary
--- NOTE | 2023-12-22 10:24 | PM.PNPUL ---
Progress Note: A&P Assessment and Plan (1) Respiratory failure with hypoxia and hypercapnia: Code(s): J96.91 - Respiratory failure, unspecified with hypoxia; J96.92 - Respiratory failure, unspecified with hypercapnia Status: Acute Assessment and Plan: Patient with a history of chronic hypoxemic respiratory failure requiring 4 L nasal cannula 24 -7. she carries a history of COPD but multiple PFTs demonstrate a severe restrictive lung disease, no tobacco use, no bullous emphysema on her CT scan bringing the diagnosis of COPD in question. she has morbid obesity with known obstructive sleep apnea on auto PAP. 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 I suspect her restrictive lung disease is related to morbid obesity and body habitus. 12/21/23: patient presented with shortness of breath, diffuse wheezing, Developed AFib with RVR, white blood cell count 8.3, serum bicarbonate 25, BNP 4690, ABG on 3 L 7.42/47/69, chest x-ray with congestion, cardiomegaly and small bilateral pleural effusions. although she carries a history of COPD on trelegy inhaler she has no smoking history, her PFTs are restrictive without evidence of obstruction and her CT scan of the chest in 2019 shows no emphysematous changes. Etiology of patient's respiratory failure with hypoxia and hypercarbia include AFib RVR with congestion and fluid overload, doubt COPD exacerbation, doubt pneumonia. COVID, influenza and RSV RT PCR studies negative. Plan: I will discontinue methylprednisolone. I will discontinue DuoNebs and trilogy inhaler as she has had tachyarrhythmias in place her on ipratropium 0.5 mg nebs q.6 hours. Patient has been started on Levaquin and will continue this for now. Agree with as aggressive diuresis as tolerated by her cardiac and renal systems. She had no hypercarbia on her initial blood gas that would qualify her for noninvasive ventilation she is on the noninvasive ventilation due to work of breathing from her fluid overload. She said that the BiPAP pressures were uncomfortable for her and that she had improved since she got to the emergency room. I changed her to a noninvasive ventilator mode with AVAPS and adjusted the settings to comfort resulting in a rate of 16, tidal volume 500, EPAP 5, minimal inspiratory pressure 6, maximal inspiratory pressure 25, inspiratory time 1.2, rise of 5 and 30% FiO2 with saturations 100%. I will check a blood gas in the morning. 12/22/23: She was taken off NIV and currently is on 3 L nasal cannula saturations 98%. I decreased her to 2 L nasal cannula her saturations were 95%. Currently the patient tells me she is breathing back to her baseline and denies any active respiratory issues. She tells me she is wheelchair bound because her legs were like rubber not because of breathing issues and can not tell me for how long. patient is on Lasix 40 IV b.i.d. with inaccurate I's and O's and weight that is decreased from 100.2 At admission to 95.8 today. she has no wheezing on exam. Plan: Patient has received 24 hours of diuresis, I stopped her steroids yesterday. She has received Levaquin for possible pneumonia. The patient states she is breathing normally and her oxygen is at 2 L nasal cannula which is an improvement from her home 3 L. I do not believe she has a COPD exacerbation and I am not convinced she has COPD. She has improved off of steroids and off of beta agonists. Today I will discontinue her ipratropium nebulizers and follow her clinically. Once the patient's fluid overload is resolved would obtain CT scan of the chest looking for interstitial lung disease as an etiology of her restrictive lung disease. Inpatient Pulmonary services will resume on 12/25/2023. Call with questions. Discussed with Dr. Lafleur, will follow with you. (2) Obstructive sleep apnea on CPAP: Code(s): G47.33 - Obstructive sleep apnea (adult) (pediatric) Status: Acute Assessment and Plan: benny
[2023-12-22 11:40] LABS: Glucose Point of Care 137 mg/dl (65-105)
--- NOTE | 2023-12-22 14:26 | PCPTNOTE ---
Attempted PT evaluation, pt refused stating My legs feel like rubber. Pt was encouraged to participate with therapist, but pt continued to refuse. RN aware.
[2023-12-22] MEDS: rOPINIRole HCL 1 MG TABLET PO (20:24)
[2023-12-22] MEDS: ATORVASTATIN 40 MG TABLET 80 MG PO (20:24)
[2023-12-22 20:59] LABS: Glucose Point of Care 125 mg/dl (65-105)
[2023-12-22] MEDS: LORazepam (*CRX) 0.5 MG TABLET PO (22:30)
[2023-12-23] VITALS (15 sets, daily range): BP systolic 116–131; BP diastolic 46–52; PULSE 73–81; RESP 16–21; TEMP 36.4–36.6; O2SAT 97–100
[2023-12-23 04:45] LABS: Basophils Percent Auto 0.1 % (0.2-1.2); Eosinophils Percent Auto 0.3 % (0-4.4); Hematocrit 28.7 % (37.0-47.0); Hemoglobin 8.9 g/dL (12.0-15.0); Immature Granulocyte Absolute 0.07 K/mm3 (0.00-0.031); Immature Granulocyte Percent A 0.8 % (0-0.5); Lymphocytes Percent Auto 24.7 % (18.3-44.2); Mean Corpuscular Hemoglobin 31.8 pg (26-34); Mean Corpuscular Volume 102.5 fl (80-100); Mean Platelet Volume 10.4 fl (7.4-10.4); Monocytes Absolute Auto 0.6 K/mm3 (0.1-0.6); Monocytes Percent Auto 6.3 % (2.6-8.5); Neutrophils Percent Auto 67.8 % (45.5-73.1); Platelet Count Result 148 k/mm3 (150-375); Red Cell Distribution Width 16.6 % (11.5-14.5); White Blood Count 8.9 K/mm3 (4.5-10.0)
[2023-12-23 05:05] LABS: Alanine Aminotransferase 52 U/L (6-35); Albumin Level 2.6 g/dL (3.5-5.1); Alkaline Phosphatase 88 U/L (38-126); Anion Gap 0 mmol/L (4-12); Aspartate Amino Transferase 100 U/L (14-36); Bilirubin,Total 0.8 mg/dL (0.2-1.3); Blood Urea Nitrogen 60 mg/dL (7-17); Calcium 8.2 mg/dL (8.4-10.2); Carbon Dioxide 38 mmol/L (22-30); Chloride 95 mmol/L (98-107); Estimated CRCL calculation 26 ml/min; Estimated Glomerular Filt Rate 35; Glucose 109 mg/dL (65-110); Potassium 3.3 mmol/L (3.4-5.0); Sodium 133 mmol/L (137-145)
[2023-12-23 05:14] LABS: Procalcitonin 0.4 ng/mL
[2023-12-23 08:06] LABS: Glucose Point of Care 93 mg/dl (65-105)
[2023-12-23] MEDS: ASPIRIN 81 MG ENTERIC TABLET PO (09:36)
[2023-12-23] MEDS: METOPROLOL SUCCINATE EXT REL 100 MG TABCR PO (09:37)
[2023-12-23] MEDS: EZETIMIBE 10 MG TABLET PO (09:37)
[2023-12-23] MEDS: FUROSEMIDE INJ 40 MG/4 ML VIAL IV PUSH (09:37)
[2023-12-23] MEDS: MULTIVITAMINS THERAPEUTIC TAB (*BKC) 1 TABLET PO (09:37)
[2023-12-23] MEDS: POTASSIUM CHLORIDE 20 MEQ ER TABLET PO ×2 (09:38→13:44)
[2023-12-23] MEDS: PANTOPRAZOLE 40 MG TABLET PO (09:38)
[2023-12-23] MEDS: TOLNAFTATE 1% POWDER 45 GM BTL 1 APPLIC TOPICAL ×2 (09:39→20:09)
[2023-12-23] MEDS: levoFLOXacin 250 MG/D5W 50 ML 250 MG/50 ML BAG 50 MG IVPB (10:06)
--- NOTE | 2023-12-23 10:53 | PM.PNCARD ---
Progress Note: A&P Assessment and Plan (1) Atrial fibrillation with rapid ventricular response: Code(s): I48.91 - Unspecified atrial fibrillation Status: Acute Assessment and Plan: Rate controlled. Continue Toprol. [id number] VASC is 6, therefore, anticoagulation would be indicated, however I am concerned about her bleeding risk due to her risk of falls given her advanced age and frailty and as she had a fall in September of this year. Will not start anticoagulation at this time. Patient to follow up with her primary warehouse person after hospital discharge. (2) Respiratory failure with hypoxia and hypercapnia: Code(s): J96.91 - Respiratory failure, unspecified with hypoxia; J96.92 - Respiratory failure, unspecified with hypercapnia Status: Acute Assessment and Plan: Improved. She is back on her normal 2L of oxygen and feels like her breathing is back to baseline. Stopped her IV Lasix and transitioned back to PO Lasix. Pulmonary following as well. (3) Heart failure, unspecified: Qualifiers: Heart failure type: combined systolic and diastolic Heart failure chronicity: chronic Qualified Code(s): I50.42 - Chronic combined systolic (congestive) and diastolic (congestive) heart failure Code(s): I50.9 - Heart failure, unspecified Status: Acute Assessment and Plan: No shortness of breath. She is back on her normal 2L of oxygen and feels like her breathing is back to baseline. Will stop IV Lasix and transition back to PO Lasix. Echocardiogram shows LVEF 45-50%. Given her advanced age and frailty anticipate a very conservative approach to this. Continue Toprol. (4) Type 2 diabetes mellitus: Code(s): E11.9 - Type 2 diabetes mellitus without complications Status: Acute Assessment and Plan: Management as per primary team. (5) Chronic kidney disease: Code(s): N18.9 - Chronic kidney disease, unspecified Status: Acute Assessment and Plan: Renal function stable (6) History of aortic valve replacement with tissue graft: Code(s): Z95.4 - Presence of other heart-valve replacement Status: Acute Assessment and Plan: Underwent TAVR in 2019 Plan Cardiology will sign off at this time. Please call us back if needed. Subjective Date/time seen: 12/23/23 10:53 Interval history: Reason for visit: Atrial fibrillation with RVR, CHF HPI: We are consulted for atrial fibrillation with RVR. This is an 88 year old female with COPD, chronic hypoxic respiratory failure on 4L of oxygen, GERD, morbid obesity, type 2 diabetes mellitus, dementia who presented with worsening shortness of breath. Has been having increased shortness of breath for the past 2 days. Patient lives in a prison, can only provide limited history. No family at bedside currently. In the ER, she was found to be in atrial fibrillation with RVR. Started on Diltiazem drip and heart rates have been in the 90s since then. CXR with pulmonary edema, she was given IV Lasix. She states she feels okay today. Date of service 12/21: Patient is awake alert this morning says her breathing is somewhat better.? Telemetry demonstrates good heart rate controlled with metoprolol that was started yesterday.? Patient reports that she underwent aortic valve replacement and follows with [facility] in [place].? We have no records of any of this.? Chest x-ray clearly shows evidence of TAVR aortic valve. Date of service 12/22: Feeling better today. No shortness of breath. She is back on her normal 2L of oxygen and feels like her breathing is back to baseline. Remains rate controlled. Review of Systems Review of Systems: All systems reviewed & are unremarkable except as noted in HPI and below (HPI) Exam Const: General: comfortable and no acute distress HENMT: Mouth: Yes moist mucous membranes Eyes: General: appearance normal, both eyes and all related structures Sc
[2023-12-23 12:23] LABS: Glucose Point of Care 132 mg/dl (65-105)
--- NOTE | 2023-12-23 12:44 | PM.IMPN ---
Progress Note: A&P Assessment and Plan (1) Acute heart failure: Code(s): I50.9 - Heart failure, unspecified Status: Acute Assessment and Plan: Improving / added supplemental potassium Continue diuresis (2) Atrial fibrillation with rapid ventricular response: Code(s): I48.91 - Unspecified atrial fibrillation Status: Acute Assessment and Plan: Rate adequately controlled Continue aspirin due to fall risk (3) Obstructive sleep apnea on CPAP: Code(s): G47.33 - Obstructive sleep apnea (adult) (pediatric) Status: Acute Assessment and Plan: Continue nocturnal CPAP (4) Hypertension: Code(s): I10 - Essential (primary) hypertension Status: Acute Assessment and Plan: Control adequate (5) Type 2 diabetes mellitus: Code(s): E11.9 - Type 2 diabetes mellitus without complications Status: Acute Assessment and Plan: Continue glycemic management (6) Chronic obstructive pulmonary disease: Code(s): J44.9 - Chronic obstructive pulmonary disease, unspecified Status: Acute Assessment and Plan: Clinically stable (7) Chronic kidney disease: Code(s): N18.9 - Chronic kidney disease, unspecified Status: Acute Assessment and Plan: Creatinine stable .4 Subjective Date/time seen: 12/23/23 12:44 Interval history: Less short of breath. Denied chest pain. Swelling LEs. Tolerating diet. No GI complaints. No fevers or chills. Urinary incontinence. Agreed to Kunz while diuresing. Has irritation on buttocks. Review of Systems Review of Systems: All systems reviewed & are unremarkable except as noted in HPI and below Exam Narrative: HEENT: PERRL, sclerae nonicteric, pharyngeal mucosa pink and intact NECK: No JVD CHEST: Clear to auscultation. Normal effort. HEART: NL S1/S2, regular, no murmur ABDOMEN: BS+, soft, nontender, no mass, no bruits EXTREMITIES: No cyanosis, edema, or clubbing NEUROLOGIC: CN intact and symmetric to inspection. MUSCULOSKELETAL: Tone and strength symmetric. PSYCH: Alert. Oriented to person, place, and time. Objective Data Vital Signs Vital Signs: Vital Signs - 24 hr 12/22/23 14:00 12/22/23 15:49 12/22/23 16:00 Temperature 98.3 F Pulse Rate 77 78 77 Respiratory Rate 18 Blood Pressure 114/40 L Pulse Oximetry 100 Oxygen Delivery Oxygen Flow Rate 12/22/23 19:52 12/22/23 20:23 12/22/23 20:20 Temperature 98.1 F Pulse Rate 81 87 Respiratory Rate 16 Blood Pressure 124/43 L Pulse Oximetry 100 98 Oxygen Delivery Nasal Cannula Oxygen Flow Rate 2 12/22/23 20:00 12/22/23 22:55 12/22/23 23:47 Temperature 97.8 F Pulse Rate 76 78 62 Respiratory Rate 24 H 20 Blood Pressure 108/40 L Pulse Oximetry 98 98 Oxygen Delivery BiPAP Oxygen Flow Rate 12/23/23 00:04 12/23/23 03:17 12/23/23 04:00 Temperature 97.7 F Pulse Rate 79 79 76 Respiratory Rate 20 Blood Pressure 118/48 L Pulse Oximetry 100 Oxygen Delivery Oxygen Flow Rate 12/23/23 02:35 12/23/23 08:32 12/23/23 09:37 Temperature Pulse Rate 74 80 Respiratory Rate 21 H Blood Pressure Pulse Oximetry 99 Oxygen Delivery BiPAP Nasal Cannula Oxygen Flow Rate 2 12/23/23 08:00 12/23/23 08:00 12/23/23 09:30 Temperature 97.9 F Pulse Rate 74 78 Respiratory Rate 18 Blood Pressure 116/50 L Pulse Oximetry 99 97 Oxygen Delivery Nasal Cannula Oxygen Flow Rate 2 Intake/Output Intake/Output: Intake & Output 12/20/23 12/21/23 12/22/23 12/23/23 23:59 23:59 23:59 23:59 Intake Total 295.1 1107.1 1320 290 Output Total 400 200 200 350 Balance -104.9 907.1 1120 -60 Meds/Results Medications: Active Medications Generic Name Dose Route Start Last Admin Trade Name Freq PRN Reason Stop Dose Admin Acetaminophen 650 mg 12/20/23 18:54 Acetaminophen 325 Mg Tablet PO Q4H PRN Mild Pain (1-
[2023-12-23 18:13] LABS: Glucose Point of Care 147 mg/dl (65-105)
[2023-12-23] MEDS: ATORVASTATIN 40 MG TABLET 80 MG PO (20:09)
[2023-12-23] MEDS: rOPINIRole HCL 1 MG TABLET PO (20:09)
[2023-12-23 20:38] LABS: Glucose Point of Care 129 mg/dl (65-105)
[2023-12-24] VITALS (11 sets, daily range): BP systolic 114–147; BP diastolic 48–52; PULSE 71–82; RESP 16–23; TEMP 36.2–37; O2SAT 99–100
[2023-12-24 05:08] LABS: Basophils Percent Auto 0.3 % (0.2-1.2); Eosinophils Absolute Auto 0.1 K/mm3 (0-0.3); Eosinophils Percent Auto 1.3 % (0-4.4); Hematocrit 29.9 % (37.0-47.0); Hemoglobin 9.3 g/dL (12.0-15.0); Immature Granulocyte Absolute 0.04 K/mm3 (0.00-0.031); Immature Granulocyte Percent A 0.5 % (0-0.5); Lymphocytes Absolute Auto 2.65 K/mm3 (0.9-3.2); Lymphocytes Percent Auto 35.3 % (18.3-44.2); Mean Corpuscular HGB Conc 31.1 g/dl (32-36); Mean Corpuscular Volume 102.7 fl (80-100); Monocytes Absolute Auto 0.5 K/mm3 (0.1-0.6); Monocytes Percent Auto 6.1 % (2.6-8.5); Neutrophils Absolute Auto 4.2 K/mm3 (1.3-6.7); Neutrophils Percent Auto 56.5 % (45.5-73.1); Platelet Count Result 156 k/mm3 (150-375); Red Blood Count 2.91 M/mm3 (4.2-5.4); Red Cell Distribution Width 16.9 % (11.5-14.5); White Blood Count 7.5 K/mm3 (4.5-10.0)
[2023-12-24 05:17] LABS: Alanine Aminotransferase 65 U/L (6-35); Albumin Level 2.8 g/dL (3.5-5.1); Alkaline Phosphatase 88 U/L (38-126); Anion Gap 1 mmol/L (4-12); Aspartate Amino Transferase 110 U/L (14-36); Bilirubin,Total 0.8 mg/dL (0.2-1.3); Blood Urea Nitrogen 65 mg/dL (7-17); Calcium 8.4 mg/dL (8.4-10.2); Carbon Dioxide 37 mmol/L (22-30); Chloride 95 mmol/L (98-107); Estimated CRCL calculation 24 ml/min; Estimated Glomerular Filt Rate 33; Glucose 110 mg/dL (65-110); Potassium 3.8 mmol/L (3.4-5.0); Sodium 133 mmol/L (137-145)
[2023-12-24] MEDS: LEVOTHYROXINE SODIUM 125 MCG TABLET PO (06:16)
[2023-12-24 08:46] LABS: Glucose Point of Care 91 mg/dl (65-105)
[2023-12-24] MEDS: ASPIRIN 81 MG ENTERIC TABLET PO (09:28)
[2023-12-24] MEDS: EZETIMIBE 10 MG TABLET PO (09:28)
[2023-12-24] MEDS: POTASSIUM CHLORIDE 20 MEQ ER TABLET PO (09:29)
[2023-12-24] MEDS: FUROSEMIDE 40 MG TABLET PO (09:29)
[2023-12-24] MEDS: METOPROLOL SUCCINATE EXT REL 100 MG TABCR PO (09:29)
[2023-12-24] MEDS: PANTOPRAZOLE 40 MG TABLET PO (09:29)
[2023-12-24] MEDS: MULTIVITAMINS THERAPEUTIC TAB (*BKC) 1 TABLET PO (09:30)
[2023-12-24] MEDS: TOLNAFTATE 1% POWDER 45 GM BTL 1 APPLIC TOPICAL ×2 (09:30→20:28)
[2023-12-24] MEDS: levoFLOXacin 750 MG TABLET PO (14:14)
[2023-12-24 17:12] LABS: Glucose Point of Care 126 mg/dl (65-105)
--- NOTE | 2023-12-24 17:20 | PM.IMPN ---
Progress Note: A&P Assessment and Plan (1) Acute heart failure: Code(s): I50.9 - Heart failure, unspecified Status: Acute Assessment and Plan: Improving 12/22 added supplemental potassium Continue diuresis (2) Atrial fibrillation with rapid ventricular response: Code(s): I48.91 - Unspecified atrial fibrillation Status: Acute Assessment and Plan: Rate adequately controlled Continue aspirin (instead of anticoagulation) due to fall risk (3) Obstructive sleep apnea on CPAP: Code(s): G47.33 - Obstructive sleep apnea (adult) (pediatric) Status: Acute Assessment and Plan: Continue nocturnal CPAP (4) Hypertension: Code(s): I10 - Essential (primary) hypertension Status: Acute Assessment and Plan: Control adequate (5) Type 2 diabetes mellitus: Code(s): E11.9 - Type 2 diabetes mellitus without complications Status: Acute Assessment and Plan: 12/23 Continue glycemic management (6) Chronic obstructive pulmonary disease: Code(s): J44.9 - Chronic obstructive pulmonary disease, unspecified Status: Acute Assessment and Plan: Clinically stable (7) Chronic kidney disease: Code(s): N18.9 - Chronic kidney disease, unspecified Status: Acute Assessment and Plan: Creatinine stable .4, 12/23 1.5 Subjective Date/time seen: 12/24/23 17:20 Interval history: Tolerated diet. Less short of breath. Denied chest pain. Swelling LEs. Tolerating diet. No GI complaints. No fevers or chills. Urinary incontinence. Agreed to Kunz while diuresing. Has irritation on buttocks. Review of Systems Review of Systems: All systems reviewed & are unremarkable except as noted in HPI and below Exam Narrative: HEENT: PERRL, sclerae nonicteric, pharyngeal mucosa pink and intact NECK: No JVD CHEST: Clear to auscultation. Normal effort. HEART: NL S1/S2, regular, no murmur ABDOMEN: BS+, soft, nontender, no mass, no bruits EXTREMITIES: No cyanosis, edema, or clubbing NEUROLOGIC: CN intact and symmetric to inspection. MUSCULOSKELETAL: Tone and strength symmetric. PSYCH: Alert. Oriented to person, place, and time. Objective Data Vital Signs Vital Signs: Vital Signs - 24 hr 12/23/23 19:36 12/23/23 20:00 04/06/24 20:00 Temperature 97.6 F Pulse Rate 79 81 Respiratory Rate 16 Blood Pressure 131/46 L Pulse Oximetry 100 100 Oxygen Delivery Nasal Cannula Oxygen Flow Rate 2 12/24/23 00:00 12/23/23 23:45 12/23/23 21:47 Temperature Pulse Rate 73 73 Respiratory Rate 21 H Blood Pressure Pulse Oximetry 99 97 Oxygen Delivery BiPAP Nasal Cannula Oxygen Flow Rate 2 12/24/23 03:04 12/24/23 04:00 12/24/23 06:13 Temperature 98.6 F Pulse Rate 76 71 72 Respiratory Rate 23 H 16 Blood Pressure 114/48 L Pulse Oximetry 99 100 Oxygen Delivery BiPAP Oxygen Flow Rate 12/24/23 09:29 12/24/23 09:25 12/24/23 08:00 Temperature Pulse Rate 78 79 Respiratory Rate Blood Pressure Pulse Oximetry 100 Oxygen Delivery Nasal Cannula Oxygen Flow Rate 2 12/24/23 15:24 Temperature 97.6 F Pulse Rate 78 Respiratory Rate 20 Blood Pressure 117/50 L Pulse Oximetry 100 Oxygen Delivery Oxygen Flow Rate Intake/Output Intake/Output: Intake & Output 12/21/23 12/22/23 12/23/23 12/24/23 23:59 23:59 23:59 23:59 Intake Total 1107.1 1320 810 770 Output Total 200 200 350 800 Balance 907.1 1120 460 -30 Meds/Results Medications: Active Medications Generic Name Dose Route Start Last Admin Trade Name Freq PRN Reason Stop Dose Admin Acetaminophen 650 mg 12/20/23 18:54 Acetaminophen 325 Mg Tablet PO Q4H PRN Mild Pain (1-3) Or Fever Hydrocodone Bitart/Acetaminophen 1 tab 12/20/23 12:55 Hydrocodone/Acetaminophen (*Crx) 5-325 Mg Tablet PO Q4H PRN Pain Rated 4-6 Hydrocodone Bitart/Acetaminophen 1 tab
[2023-12-24 17:21] LABS: Glucose Point of Care 123 mg/dl (65-105)
[2023-12-24] MEDS: rOPINIRole HCL 1 MG TABLET PO (20:28)
[2023-12-24] MEDS: ATORVASTATIN 40 MG TABLET 80 MG PO (20:28)
[2023-12-24 21:04] LABS: Glucose Point of Care 132 mg/dl (65-105)
[2023-12-25] VITALS (8 sets, daily range): BP systolic 108–142; BP diastolic 45–74; PULSE 65–86; RESP 17–25; TEMP 36.4–36.6; O2SAT 98–100
[2023-12-25 05:45] LABS: Basophils Percent Auto 0.5 % (0.2-1.2); Eosinophils Absolute Auto 0.1 K/mm3 (0-0.3); Eosinophils Percent Auto 1.1 % (0-4.4); Hematocrit 32.5 % (37.0-47.0); Hemoglobin 9.5 g/dL (12.0-15.0); Immature Granulocyte Absolute 0.05 K/mm3 (0.00-0.031); Immature Granulocyte Percent A 0.6 % (0-0.5); Lymphocytes Absolute Auto 2.76 K/mm3 (0.9-3.2); Lymphocytes Percent Auto 34.1 % (18.3-44.2); Mean Corpuscular HGB Conc 29.2 g/dl (32-36); Mean Corpuscular Hemoglobin 31.7 pg (26-34); Mean Corpuscular Volume 108.3 fl (80-100); Mean Platelet Volume 10.1 fl (7.4-10.4); Monocytes Absolute Auto 0.5 K/mm3 (0.1-0.6); Monocytes Percent Auto 5.6 % (2.6-8.5); Neutrophils Absolute Auto 4.7 K/mm3 (1.3-6.7); Neutrophils Percent Auto 58.1 % (45.5-73.1); Platelet Count Result 154 k/mm3 (150-375); Red Cell Distribution Width 16.6 % (11.5-14.5); White Blood Count 8.1 K/mm3 (4.5-10.0)
[2023-12-25] MEDS: LEVOTHYROXINE SODIUM 125 MCG TABLET PO (05:52)
[2023-12-25 06:00] LABS: Alanine Aminotransferase 57 U/L (6-35); Albumin Level 2.7 g/dL (3.5-5.1); Alkaline Phosphatase 83 U/L (38-126); Anion Gap 2 mmol/L (4-12); Aspartate Amino Transferase 80 U/L (14-36); Bilirubin,Total 0.8 mg/dL (0.2-1.3); Blood Urea Nitrogen 68 mg/dL (7-17); Calcium 8.5 mg/dL (8.4-10.2); Carbon Dioxide 35 mmol/L (22-30); Chloride 96 mmol/L (98-107); Estimated CRCL calculation 25 ml/min; Estimated Glomerular Filt Rate 35; Glucose 109 mg/dL (65-110); Potassium 3.5 mmol/L (3.4-5.0); Sodium 133 mmol/L (137-145)
[2023-12-25 07:47] LABS: Acanthocytes 1+; Anisocytosis 1+; Platelet Estimate Adequate (Adequate); Schistocytes None Seen
[2023-12-25 08:25] LABS: Glucose Point of Care 107 mg/dl (65-105)
[2023-12-25] MEDS: METOPROLOL SUCCINATE EXT REL 100 MG TABCR PO (08:39)
[2023-12-25] MEDS: POTASSIUM CHLORIDE 20 MEQ ER TABLET PO (08:39)
[2023-12-25] MEDS: ASPIRIN 81 MG ENTERIC TABLET PO (08:39)
[2023-12-25] MEDS: EZETIMIBE 10 MG TABLET PO (08:39)
[2023-12-25] MEDS: MULTIVITAMINS THERAPEUTIC TAB (*BKC) 1 TABLET PO (08:40)
[2023-12-25] MEDS: PANTOPRAZOLE 40 MG TABLET PO (08:40)
[2023-12-25] MEDS: FUROSEMIDE 40 MG TABLET PO (08:40)
[2023-12-25] MEDS: TOLNAFTATE 1% POWDER 45 GM BTL 1 APPLIC TOPICAL ×2 (08:41→21:34)
[2023-12-25 12:15] LABS: Glucose Point of Care 120 mg/dl (65-105)
[2023-12-25 12:36] LABS: Alveolar/Arterial O2 Gradient 45.9 mmHg; Base Excess ABG 8.8 mEq/l (+/-2.0); Fractional Inspired Oxygen 28 %; HCO3 ABG 33.5 mEq/l (22.0-26.0); Oxygen Content ABG 15.3 %vol (16.0-22.0); Oxygen Saturation ABG 97.8 % (95.0-100.0); Oxyhemoglobin 96.1 % THb (90.0-100.0); PCO2 ABG 46.7 mmHg (35.0-45.0); PO2 ABG 98.6 mmHg (80.0-100.0); PO2 FiO2 Ratio Arterial Blood 3.52 %; Total Hemoglobin 11.2 g/dL (12.0-18.0); pH ABG 7.473 (7.350-7.450)
[2023-12-25 12:39] LABS: Device NASAL CANNULA; Site Drawn LEFT BRACHIAL
[2023-12-25 12:46] LABS: Ammonia < 9 umol/L (9-30); Lactic Acid Reflex 1.1 mmol/L (0.7-2.0)
[2023-12-25 12:54] LABS: CRP 0.9 mg/dL (<1.0)
[2023-12-25 13:13] LABS: Procalcitonin 0.1 ng/mL
--- NOTE | 2023-12-25 16:06 | PM.PNPUL ---
Progress Note: A&P Assessment and Plan (1) Respiratory failure with hypoxia and hypercapnia: Code(s): J96.91 - Respiratory failure, unspecified with hypoxia; J96.92 - Respiratory failure, unspecified with hypercapnia Status: Acute Assessment and Plan: 12/25/2023 Patient with a history of chronic hypoxemic respiratory failure who has been on 4 L/min, now able to oxygenate on 2 L/min. She carries a history of COPD but multiple PFTs demonstrate a severe restrictive lung disease, no tobacco use, no bullous emphysema on her CT scan bringing the diagnosis of COPD in question. She has morbid obesity with known obstructive sleep apnea on auto PAP. 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 I suspect her restrictive lung disease is related to morbid obesity and body habitus. 12/21/23: patient presented with shortness of breath, diffuse wheezing, Developed AFib with RVR, white blood cell count 8.3, serum bicarbonate 25, BNP 4690, ABG on 3 L 7.42/47/69, chest x-ray with congestion, cardiomegaly and small bilateral pleural effusions. although she carries a history of COPD on Trelegy inhaler she has no smoking history, her PFTs are restrictive without evidence of obstruction and her CT scan of the chest in 2019 shows no emphysematous changes. Etiology of patient's respiratory failure with hypoxia and hypercarbia include AFib RVR with congestion and fluid overload, doubt COPD exacerbation, doubt pneumonia. COVID, influenza and RSV RT PCR studies negative. Plan: I will discontinue methylprednisolone. I will discontinue DuoNebs and trilogy inhaler as she has had tachyarrhythmias in place her on ipratropium 0.5 mg nebs q.6 hours. Patient has been started on Levaquin and will continue this for now. Agree with as aggressive diuresis as tolerated by her cardiac and renal systems. She had no hypercarbia on her initial blood gas that would qualify her for noninvasive ventilation. She is on the noninvasive ventilation due to work of breathing from her fluid overload. She said that the BiPAP pressures were uncomfortable for her and that she had improved since she got to the emergency room. I changed her to a noninvasive ventilator mode with AVAPS and adjusted the settings to comfort resulting in a rate of 16, tidal volume 500, EPAP 5, minimal inspiratory pressure 6, maximal inspiratory pressure 25, inspiratory time 1.2, rise of 5 and 30% FiO2 with saturations 100%. I will check a blood gas in the morning. 12/22/23: She was taken off NIV and currently is on 3 L nasal cannula saturations 98%. I decreased her to 2 L nasal cannula her saturations were 95%. Currently the patient tells me she is breathing back to her baseline and denies any active respiratory issues. She tells me she is wheelchair bound because her legs were like rubber not because of breathing issues and can not tell me for how long. patient is on Lasix 40 IV b.i.d. with inaccurate I's and O's and weight that is decreased from 100.2 At admission to 95.8 today. she has no wheezing on exam. Plan: 12/25/23 Patient has received diuresis, now off steroids. She has received Levaquin for possible pneumonia. The patient says that she is not short of breath, now on 2 L/min, lower than O2 use at home which was 3 L. This does not appear to be a COPD exacerbation. She does not appear to have COPD. She has improved off of steroids and off of beta agonists. She remains off ipratropium nebulizer. She may benefit from CT scan of the chest looking for interstitial lung disease as an etiology of her restrictive lung disease. I stopped oral Lasix with increase in BUN to 68, creat 1.4. (2) Obstructive sleep apnea on CPAP: Code(s): G47.33 - Obstructive sleep apnea (adult) (pediatric) Status: Acute Assessment and Plan: Patient has mild obstructive sleep apnea diagnosed in 2014 in had a difficult CPAP titration and the
[2023-12-25 17:21] LABS: Glucose Point of Care 107 mg/dl (65-105)
[2023-12-25 21:19] LABS: Glucose Point of Care 119 mg/dl (65-105)
[2023-12-25] MEDS: rOPINIRole HCL 1 MG TABLET PO (21:34)
[2023-12-25] MEDS: ATORVASTATIN 40 MG TABLET 80 MG PO (21:34)
[2023-12-25 21:53] LABS: Erythrocyte Sedimentation Rate 25 mm/hr (0-20)
--- NOTE | 2023-12-25 22:21 | PM.IMPN ---
Progress Note: A&P Assessment and Plan (1) Respiratory failure with hypoxia and hypercapnia: Code(s): J96.91 - Respiratory failure, unspecified with hypoxia; J96.92 - Respiratory failure, unspecified with hypercapnia Status: Acute (2) Acute heart failure: Code(s): I50.9 - Heart failure, unspecified Status: Acute (3) Atrial fibrillation with rapid ventricular response: Code(s): I48.91 - Unspecified atrial fibrillation Status: Acute (4) Acute hypercapnic respiratory failure: Code(s): J96.02 - Acute respiratory failure with hypercapnia Status: Acute (5) Pulmonary edema: Code(s): J81.1 - Chronic pulmonary edema Status: Acute Plan #Acute confusion likely delirium -possibly metabolic encephalopathy -CT head ordered: negative -UA, RPR, hep panel, HIV, B12, folic, procalc, vit d #UTI? -on levaquin #heart failure reduced EF -diuresis -EF 45-50% -potassium replacement with look diuretics -cardiology recommends conservative management, continue metoprolol #Chronic conditions -HLD: aspirin, statin, zetia -hypothyroidism: synthroid -RLS: requip -HTN: metoprolol -afib: rate control metoprolol, only aspirin due to fall risk no AC Diet: heart healthy DVT ppx: SCDs, likely start AC tomorrow Code status: modified code Disposition: SNF in 2-3 days date of service 12/25/2023 Time Spent With Patient Time: 35 minutes Subjective Date/time seen: 12/25/23 22:21 Interval history: Patient seen and examined. She was increasing confused today. Family reports this to be a big change in mentation. She was not able to make full sentences. She kept repeating are we done now . With this change in mentation, I will order head CT and delirium work up. We are holding off on discharge. PO management for heart failure. Review of Systems Review of Systems: unable to obtain due to mental status Exam Narrative: - GENERAL: Pleasant elderly woman, confused - EYES: EOMI. Anicteric. - HENT: Moist mucous membranes. - LUNGS: Clear to auscultation bilaterally, no wheezing, rhonchi, or rales. - CARDIOVASCULAR: Regular rate and rhythm. No murmur. No JVD. - ABDOMEN: Soft, non-tender and non-distended. No palpable masses. - EXTREMITIES: No edema. Peripheral pulses 2+. Non-tender. - NEUROLOGIC: No focal neurological deficits. CN II-XII grossly intact. - PSYCHIATRIC: Awake, Alert, disoriented, lacked insight - SKIN: No rashes or lesions. Warm. - LYMPH: No cervical lymphadenopathy. Objective Data Vital Signs Vital Signs: Vital Signs - 24 hr 12/25/23 01:50 12/25/23 04:43 12/25/23 08:39 Temperature 36.6 C Pulse Rate 79 82 68 Respiratory Rate 25 H 18 Blood Pressure 111/74 Pulse Oximetry 98 100 Oxygen Delivery BiPAP Oxygen Flow Rate 12/25/23 08:41 12/25/23 08:00 12/25/23 16:00 Temperature 36.6 C 36.4 C Pulse Rate 68 65 76 Respiratory Rate 18 18 17 Blood Pressure 110/72 108/64 Pulse Oximetry 100 100 100 Oxygen Delivery Nasal Cannula Oxygen Flow Rate 2 12/25/23 21:18 12/25/23 21:40 Temperature 36.4 C Pulse Rate 86 Respiratory Rate 18 Blood Pressure 142/45 H Pulse Oximetry 100 Oxygen Delivery CPAP Oxygen Flow Rate Intake/Output Intake/Output: Intake & Output 12/22/23 12/23/23 12/24/23 12/25/23 23:59 23:59 23:59 23:59 Intake Total 3816 571 2494 1260 Output Total 887 319 1855 1500 Balance 1120 460 -420 -240 Meds/Results Medications: Active Medications Generic Name Dose Route Start Last Admin Trade Name Freq PRN Reason Stop Dose Admin Acetaminophen 650 mg 12/20/23 18:54 Acetaminophen 325 Mg Tablet PO Q4H PRN Mild Pain (1-3) Or Fever Hydrocodone Bitart/Acetaminophen 1 tab 12/20/23 12:55 Hydrocodone/Acetaminophen (*Crx) 5-325 Mg Tablet PO Q4H PRN Pain Rated 4-6 Hydrocodone Bitart/Acetaminophen 1 tab 12/20/23 18:54 Hydrocodone/Acetaminophen (*Crx) 5-325 Mg Tablet PO Q8H
[2023-12-25 23:21] LABS: Appearance Urine Clear (Clear); Bacteria Urine None Seen /hpf; Bilirubin Urine Negative (Negative); Blood Urine Negative (Negative); Color Urine Yellow (Yellow); Glucose Urine UA Negative (Negative); Ketones Urine Negative (Negative); Leukocyte Esterase Ur 2+ LEU/UL (Negative); Nitrate Urine Negative (Negative); Non Pathogenic Casts 0-2; Protein Urine Negative (Negative); Specific Grav Ur 1.011 (1.001-1.035); Squamous Epithelial Cell Urine None Seen /hpf (Few); Urobilinogen Urine 0.2 mg/dL (<2.0); WBC Urine 51-100 /hpf (0-3); pH Urine 7.5 (5.0-9.0)
[2023-12-26] VITALS (9 sets, daily range): BP systolic 95–111; BP diastolic 40–55; PULSE 74–87; RESP 16–28; TEMP 36.3–36.6; O2SAT 98–100
[2023-12-26 00:23] LABS: Add Urine Microscopic? YES
[2023-12-26 05:19] LABS: Basophils Percent Auto 0.4 % (0.2-1.2); Eosinophils Absolute Auto 0.1 K/mm3 (0-0.3); Eosinophils Percent Auto 1.2 % (0-4.4); Hematocrit 31.8 % (37.0-47.0); Hemoglobin 9.8 g/dL (12.0-15.0); Immature Granulocyte Absolute 0.06 K/mm3 (0.00-0.031); Immature Granulocyte Percent A 0.7 % (0-0.5); Mean Corpuscular HGB Conc 30.8 g/dl (32-36); Mean Corpuscular Hemoglobin 31.9 pg (26-34); Mean Corpuscular Volume 103.6 fl (80-100); Mean Platelet Volume 10.1 fl (7.4-10.4); Monocytes Absolute Auto 0.4 K/mm3 (0.1-0.6); Monocytes Percent Auto 5.1 % (2.6-8.5); Neutrophils Absolute Auto 5.3 K/mm3 (1.3-6.7); Neutrophils Percent Auto 63.6 % (45.5-73.1); Platelet Count Result 157 k/mm3 (150-375); Red Blood Count 3.07 M/mm3 (4.2-5.4); Red Cell Distribution Width 16.9 % (11.5-14.5); White Blood Count 8.3 K/mm3 (4.5-10.0)
[2023-12-26 05:33] LABS: Alanine Aminotransferase 43 U/L (6-35); Albumin Level 2.8 g/dL (3.5-5.1); Alkaline Phosphatase 87 U/L (38-126); Anion Gap 1 mmol/L (4-12); Aspartate Amino Transferase 60 U/L (14-36); Bilirubin,Total 0.9 mg/dL (0.2-1.3); Blood Urea Nitrogen 67 mg/dL (7-17); Calcium 9.2 mg/dL (8.4-10.2); Carbon Dioxide 36 mmol/L (22-30); Chloride 99 mmol/L (98-107); Estimated CRCL calculation 27 ml/min; Estimated Glomerular Filt Rate 39; Glucose 105 mg/dL (65-110); Potassium 3.6 mmol/L (3.4-5.0); Sodium 136 mmol/L (137-145)
[2023-12-26 05:47] LABS: Procalcitonin 0.1 ng/mL
[2023-12-26 06:08] LABS: Hepatitis B Surface Antigen Negative (Negative)
[2023-12-26 06:15] LABS: HAV RESULT Negative (Negative); Hepatitis B Core IgM Result Negative (Negative)
[2023-12-26 06:18] LABS: HIV 1/2 Ab P24 Ag Result Negative (Negative)
[2023-12-26] MEDS: LEVOTHYROXINE SODIUM 125 MCG TABLET PO (06:20)
[2023-12-26 06:25] LABS: Hepatitis C Virus Antibody Negative (Negative)
[2023-12-26 06:35] LABS: Folic Acid 18.7 ng/mL (2.76->20)
[2023-12-26 08:09] LABS: Glucose Point of Care 95 mg/dl (65-105)
[2023-12-26] MEDS: POTASSIUM CHLORIDE 20 MEQ ER TABLET PO (08:27)
[2023-12-26] MEDS: polyethylene glycoL 3350 17 GM POWD.PACK PO (08:27)
[2023-12-26] MEDS: METOPROLOL SUCCINATE EXT REL 100 MG TABCR PO (08:27)
[2023-12-26] MEDS: EZETIMIBE 10 MG TABLET PO (08:27)
[2023-12-26] MEDS: ASPIRIN 81 MG ENTERIC TABLET PO (08:28)
[2023-12-26] MEDS: MULTIVITAMINS THERAPEUTIC TAB (*BKC) 1 TABLET PO (08:28)
[2023-12-26] MEDS: TOLNAFTATE 1% POWDER 45 GM BTL 1 APPLIC TOPICAL ×2 (08:28→20:18)
[2023-12-26] MEDS: PANTOPRAZOLE 40 MG TABLET PO (08:28)
--- NOTE | 2023-12-26 09:21 | PCPTNOTE ---
Patient refused treatment this session. Patient reported she wanted advanced nursing professor to get her cleaned up before working with PT.
--- NOTE | 2023-12-26 10:43 | PCOTNOTE ---
Patient refused to participate, stated, I just want to be left alone, I'm tired and trying to sleep .
[2023-12-26 11:51] LABS: Glucose Point of Care 135 mg/dl (65-105)
--- NOTE | 2023-12-26 12:15 | PM.IMPN ---
Progress Note: A&P Assessment and Plan (1) Delirium: Code(s): R41.0 - Disorientation, unspecified Status: Acute (2) History of aortic valve replacement with tissue graft: Code(s): Z95.4 - Presence of other heart-valve replacement Status: Acute (3) Respiratory failure with hypoxia and hypercapnia: Code(s): J96.91 - Respiratory failure, unspecified with hypoxia; J96.92 - Respiratory failure, unspecified with hypercapnia Status: Acute (4) Atrial fibrillation with rapid ventricular response: Code(s): I48.91 - Unspecified atrial fibrillation Status: Acute (5) Acute heart failure: Code(s): I50.9 - Heart failure, unspecified Status: Acute (6) Acute hypercapnic respiratory failure: Code(s): J96.02 - Acute respiratory failure with hypercapnia Status: Acute (7) Pulmonary edema: Code(s): J81.1 - Chronic pulmonary edema Status: Acute (8) Unable to care for self: Code(s): Z78.9 - Other specified health status Status: Acute Plan #Acute confusion likely delirium, improving -possibly metabolic encephalopathy -CT head ordered: negative -UA, RPR, hep panel, HIV, B12, folic, procalc, vit d. so far negative, awaiting some results -patient was placed on Levaquin with history of UTI however no signs of infection identified, will discontinue Levaquin - pCO2 is stable chronic her COPD #heart failure reduced EF -diuresis -EF 45-50%, indeterminate diastolic function -potassium replacement with loop diuretics, stopped diuresis -cardiology recommends conservative management, continue metoprolol #Chronic conditions -HLD: aspirin, statin, zetia -hypothyroidism: synthroid -RLS: requip -HTN: metoprolol -afib: rate control metoprolol, only aspirin due to fall risk no AC - COPD, restrictive lung disease: COPD from secondhand smoke Diet:?heart healthy DVT ppx:?SQ heparin Code status:?modified code Disposition:?SNF in 1-2 days Time Spent With Patient Time: 35 minutes Subjective Date/time seen: 12/26/23 12:15 Interval history: patient seen and examined. she appears to be doing better today speaking with more sentences. She appears to have no recollection of yesterday. she still has some statements that are very peculiar and does not answer all questions appropriately. will continue monitor anticipate discharge in next day or 2. she denies fever, chills, nausea, diarrhea, chest pain, shortness of breath. Review of Systems Review of Systems: 10 point ROS complete, negative other than what is specified in HPI. Exam Narrative: - GENERAL:? Pleasant elderly woman, confused - EYES: EOMI. Anicteric. - HENT: Moist mucous membranes. - LUNGS: Clear to auscultation bilaterally, no wheezing, rhonchi, or rales. - CARDIOVASCULAR: Regular rate and rhythm. No murmur. No JVD. - ABDOMEN: Soft, non-tender and non-distended. No palpable masses. - EXTREMITIES: restricted range of motion, more use of her left arm than right. has difficulty and greater - NEUROLOGIC: difficult to examine with patient's mentation. answering some questions appropriately - PSYCHIATRIC: Awake, Alert, disoriented, lacked insight. more communicative than yesterday but still confused - SKIN: Bruising on arms - LYMPH: No cervical lymphadenopathy. Objective Data Vital Signs Vital Signs: Vital Signs - 24 hr 12/25/23 16:00 12/25/23 21:18 12/25/23 21:40 Temperature 36.4 C 36.4 C Pulse Rate 76 86 Respiratory Rate 17 18 Blood Pressure 108/64 142/45 H Pulse Oximetry 100 100 Oxygen Delivery CPAP Oxygen Flow Rate 12/25/23 22:10 12/26/23 02:30 12/26/23 04:44 Temperature 36.4 C L Pulse Rate 74 Respiratory Rate 22 H 19 18 Blood Pressure 95/55 L Pulse Oximetry 100 Oxygen Delivery BiPAP BiPAP Oxygen Flow Rate 12/26/23 08:09 12/26/23 08:27 12/26/23 08:28 Temperature 36.4 C L Pulse Rate 78 78 Respiratory Rate 16 16 Blood Press
[2023-12-26 13:06] LABS: Rapid Plasma Reagin Non-Reactive (NonReactive)
--- NOTE | 2023-12-26 13:31 | PCNFU ---
Nutrition Follow-Up Complete: Increased protein energy needs related to wound healing as evidenced by Stage 3 pressure to sacrum Goal:Adequate PO intake at least 75% meals and supplements to support wound healing Pt is progressing towards goal. Continue with same goal Pt current nutrition is Heart healthy, Vinny BID for wound healing. Nutrition recommendation: Continue with current plan of care Last recorded weight is 96.2 kg. Bowel Motility: +BM 4/6 Labs Reviewed:Hgb:9.8, HCT:31.8, Alb:2.8, NA:136, GFR:39, BUN:67, Cr:1.3 Meds Noted: zofran, protonix, KCL Skin: Stage III to sacrum Additional Notes: Pt continues on a heart healthy diet, intake 50-75% at this time. Pt reports eating well. VINNY BID ordered for wound healing. Agree with diet orders. Monitoring intakes, weights, labs, wound healing, supplement tolerance, plan of care Follow up in 5 days
--- NOTE | 2023-12-26 14:46 | PCOTNOTE ---
Attempted occupational therapy treatment, pt was present with daughter and pt refused to participate this date stating she was too tired. Educated on the importance of participating in therapy sessions in order to increase strength and endurance to return home. Pt continued to refuse. Ensured all needs were met. Following.
[2023-12-26 17:01] LABS: Glucose Point of Care 114 mg/dl (65-105)
--- NOTE | 2023-12-26 18:21 | PM.PNPUL ---
Progress Note: A&P Assessment and Plan (1) Respiratory failure with hypoxia and hypercapnia: Code(s): J96.91 - Respiratory failure, unspecified with hypoxia; J96.92 - Respiratory failure, unspecified with hypercapnia Status: Acute Assessment and Plan: 12/25/2023 Patient with a history of chronic hypoxemic respiratory failure who has been on 4 L/min, now able to oxygenate on 2 L/min. She carries a history of COPD but multiple PFTs demonstrate a severe restrictive lung disease, no tobacco use, no bullous emphysema on her CT scan bringing the diagnosis of COPD in question. She has morbid obesity with known obstructive sleep apnea on auto PAP. 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 I suspect her restrictive lung disease is related to morbid obesity and body habitus. 12/21/23: patient presented with shortness of breath, diffuse wheezing, Developed AFib with RVR, white blood cell count 8.3, serum bicarbonate 25, BNP 4690, ABG on 3 L 7.42/47/69, chest x-ray with congestion, cardiomegaly and small bilateral pleural effusions. although she carries a history of COPD on Trelegy inhaler she has no smoking history, her PFTs are restrictive without evidence of obstruction and her CT scan of the chest in 2019 shows no emphysematous changes. Etiology of patient's respiratory failure with hypoxia and hypercarbia include AFib RVR with congestion and fluid overload, doubt COPD exacerbation, doubt pneumonia. COVID, influenza and RSV RT PCR studies negative. Plan: I will discontinue methylprednisolone. I will discontinue DuoNebs and trilogy inhaler as she has had tachyarrhythmias in place her on ipratropium 0.5 mg nebs q.6 hours. Patient has been started on Levaquin and will continue this for now. Agree with as aggressive diuresis as tolerated by her cardiac and renal systems. She had no hypercarbia on her initial blood gas that would qualify her for noninvasive ventilation. She is on the noninvasive ventilation due to work of breathing from her fluid overload. She said that the BiPAP pressures were uncomfortable for her and that she had improved since she got to the emergency room. I changed her to a noninvasive ventilator mode with AVAPS and adjusted the settings to comfort resulting in a rate of 16, tidal volume 500, EPAP 5, minimal inspiratory pressure 6, maximal inspiratory pressure 25, inspiratory time 1.2, rise of 5 and 30% FiO2 with saturations 100%. I will check a blood gas in the morning. 12/22/23: She was taken off NIV and currently is on 3 L nasal cannula saturations 98%. I decreased her to 2 L nasal cannula her saturations were 95%. Currently the patient tells me she is breathing back to her baseline and denies any active respiratory issues. She tells me she is wheelchair bound because her legs were like rubber not because of breathing issues and can not tell me for how long. patient is on Lasix 40 IV b.i.d. with inaccurate I's and O's and weight that is decreased from 100.2 At admission to 95.8 today. she has no wheezing on exam. 12/25/23 Patient has received diuresis, now off steroids. She has received Levaquin for possible pneumonia. The patient says that she is not short of breath, now on 2 L/min, lower than O2 use at home which was 3 L. This does not appear to be a COPD exacerbation. She does not appear to have COPD. She has improved off of steroids and off of beta agonists. She remains off ipratropium nebulizer. She may benefit from CT scan of the chest looking for interstitial lung disease as an etiology of her restrictive lung disease. I stopped oral Lasix with increase in BUN to 68, creat 1.4. 12/26/23 She may be at her baseline. On 2 L/min. BUN and creatinine are about the same, 67 and 1.3. I do not think that a chest CT will add anything helpful. She is not going to be able to perform PFTs and she is not a candidate for antifibrotic medications if she has ILD.
[2023-12-26] MEDS: HEPARIN SODIUM 5,000 UNITS/ML VIAL 5000 UNITS SUB-Q (20:17)
[2023-12-26] MEDS: rOPINIRole HCL 1 MG TABLET PO (20:18)
[2023-12-26] MEDS: ATORVASTATIN 40 MG TABLET 80 MG PO (20:18)
[2023-12-26 22:05] LABS: Glucose Point of Care 136 mg/dl (65-105)
[2023-12-27] VITALS (9 sets, daily range): BP systolic 108–138; BP diastolic 50–66; PULSE 73–124; RESP 16–20; TEMP 36.4–37.2; O2SAT 95–100
[2023-12-27 05:05] LABS: Basophils Percent Auto 0.3 % (0.2-1.2); Eosinophils Absolute Auto 0.1 K/mm3 (0-0.3); Eosinophils Percent Auto 0.7 % (0-4.4); Hematocrit 31.5 % (37.0-47.0); Hemoglobin 9.6 g/dL (12.0-15.0); Immature Granulocyte Absolute 0.07 K/mm3 (0.00-0.031); Immature Granulocyte Percent A 0.8 % (0-0.5); Lymphocytes Absolute Auto 2.62 K/mm3 (0.9-3.2); Lymphocytes Percent Auto 28.8 % (18.3-44.2); Mean Corpuscular HGB Conc 30.5 g/dl (32-36); Mean Corpuscular Hemoglobin 31.6 pg (26-34); Mean Corpuscular Volume 103.6 fl (80-100); Mean Platelet Volume 10.1 fl (7.4-10.4); Monocytes Absolute Auto 0.5 K/mm3 (0.1-0.6); Monocytes Percent Auto 5.5 % (2.6-8.5); Neutrophils Absolute Auto 5.8 K/mm3 (1.3-6.7); Neutrophils Percent Auto 63.9 % (45.5-73.1); Platelet Count Result 154 k/mm3 (150-375); Red Blood Count 3.04 M/mm3 (4.2-5.4); Red Cell Distribution Width 17.1 % (11.5-14.5); White Blood Count 9.1 K/mm3 (4.5-10.0)
[2023-12-27 05:22] LABS: Alanine Aminotransferase 38 U/L (6-35); Albumin Level 2.8 g/dL (3.5-5.1); Alkaline Phosphatase 83 U/L (38-126); Anion Gap 0 mmol/L (4-12); Aspartate Amino Transferase 56 U/L (14-36); Bilirubin,Total 0.9 mg/dL (0.2-1.3); Blood Urea Nitrogen 68 mg/dL (7-17); Carbon Dioxide 35 mmol/L (22-30); Chloride 99 mmol/L (98-107); Estimated CRCL calculation 32 ml/min; Estimated Glomerular Filt Rate 47; Glucose 93 mg/dL (65-110); Potassium 3.6 mmol/L (3.4-5.0); Sodium 134 mmol/L (137-145)
[2023-12-27] MEDS: LEVOTHYROXINE SODIUM 125 MCG TABLET PO (05:39)
[2023-12-27 08:31] LABS: Glucose Point of Care 98 mg/dl (65-105)
--- NOTE | 2023-12-27 09:40 | PCOTNOTE ---
Patient refused treatment this session due to being sleepy Patient refused to open her eyes.
[2023-12-27] MEDS: METOPROLOL SUCCINATE EXT REL 100 MG TABCR PO (09:48)
[2023-12-27] MEDS: MULTIVITAMINS THERAPEUTIC TAB (*BKC) 1 TABLET PO (09:48)
[2023-12-27] MEDS: POTASSIUM CHLORIDE 20 MEQ ER TABLET PO (09:48)
[2023-12-27] MEDS: PANTOPRAZOLE 40 MG TABLET PO (09:48)
[2023-12-27] MEDS: ASPIRIN 81 MG ENTERIC TABLET PO (09:48)
[2023-12-27] MEDS: EZETIMIBE 10 MG TABLET PO (09:48)
[2023-12-27] MEDS: HEPARIN SODIUM 5,000 UNITS/ML VIAL 5000 UNITS SUB-Q ×2 (09:50→20:23)
[2023-12-27] MEDS: TOLNAFTATE 1% POWDER 45 GM BTL 1 APPLIC TOPICAL ×2 (09:52→20:23)
[2023-12-27 12:14] LABS: Glucose Point of Care 148 mg/dl (65-105)
--- NOTE | 2023-12-27 13:12 | PCPTNOTE ---
Patient refused treatment this session. Patient reported she was not feeling good.
--- NOTE | 2023-12-27 15:19 | PM.IMPN ---
Progress Note: A&P Assessment and Plan (1) Delirium: Code(s): R41.0 - Disorientation, unspecified Status: Acute (2) History of aortic valve replacement with tissue graft: Code(s): Z95.4 - Presence of other heart-valve replacement Status: Acute (3) Respiratory failure with hypoxia and hypercapnia: Code(s): J96.91 - Respiratory failure, unspecified with hypoxia; J96.92 - Respiratory failure, unspecified with hypercapnia Status: Acute (4) Atrial fibrillation with rapid ventricular response: Code(s): I48.91 - Unspecified atrial fibrillation Status: Acute (5) Acute heart failure: Code(s): I50.9 - Heart failure, unspecified Status: Acute (6) Acute hypercapnic respiratory failure: Code(s): J96.02 - Acute respiratory failure with hypercapnia Status: Acute (7) Pulmonary edema: Code(s): J81.1 - Chronic pulmonary edema Status: Acute (8) Unable to care for self: Code(s): Z78.9 - Other specified health status Status: Acute (9) Uremic encephalopathy: Code(s): G93.49 - Other encephalopathy; N19 - Unspecified kidney failure Status: Acute Plan #Acute confusion likely delirium versus uremic encephalopathy #End-of-life care -possibly metabolic encephalopathy, BUN 68, may have worsening uremia with the diuresis. we will hold lasix -CT head ordered: negative -UA, RPR, hep panel, HIV, B12, folic, procalc, vit d. so far negative, awaiting some results -pCO2 is stable chronic her COPD -family requested information on hospice, consult to managed care manager given -hospice is appropriate considering decrease in functional status over the course of the last year #heart failure reduced EF -diuresis -EF 45-50%, indeterminate diastolic function -potassium replacement with loop diuretics, stopped diuresis -cardiology recommends conservative management, continue metoprolol #Chronic conditions -HLD: aspirin, statin, zetia -hypothyroidism: synthroid -RLS: requip -HTN: metoprolol -afib: rate control metoprolol, only aspirin due to fall risk no AC - COPD, restrictive lung disease: COPD from secondhand smoke Diet:?heart healthy DVT ppx:?SQ heparin Code status:?DNR Disposition:?back to SNF tomorrow Time Spent With Patient Time: 35 minutes Subjective Date/time seen: 12/27/23 15:19 Interval history: Patient seen and examined. She continues to be confused. Patient's BUN is 68, she may have some uremic encephalopathy. We have held her diuretic. I called and discussed with patient's daughter Isela [phone]. Family is considering hospice considering lack of improvement. Review of Systems Review of Systems: unable to obtain due to mental status Exam Narrative: - GENERAL:? Pleasant elderly woman, confused - EYES: EOMI. Anicteric. - HENT: Moist mucous membranes. - LUNGS: Clear to auscultation bilaterally, no wheezing, rhonchi, or rales. - CARDIOVASCULAR: Regular rate and rhythm. No murmur - ABDOMEN: Soft, non-tender and non-distended. No palpable masses. - EXTREMITIES: restricted range of motion, more use of her left arm than right - NEUROLOGIC: difficult to examine with patient's mentation. answering some questions appropriately - PSYCHIATRIC: Awake, Alert, disoriented, lacked insight. still confused - SKIN: Bruising on arms - LYMPH: No cervical lymphadenopathy. Objective Data Vital Signs Vital Signs: Vital Signs - 24 hr 12/26/23 20:00 12/26/23 20:35 12/27/23 00:00 Temperature 36.4 C L Pulse Rate 83 73 Respiratory Rate 18 28 H 18 Blood Pressure 129/50 L Pulse Oximetry 98 100 Oxygen Delivery BiPAP BiPAP Oxygen Flow Rate Fraction of Inspired Oxygen 40 12/27/23 05:38 12/27/23 08:00 12/27/23 09:48 Temperature 36.4 C 36.4 C Pulse Rate 78 74 78 Respiratory Rate 17 16 Blood Pressure 138/66 132/60 Pulse Oximetry 98 98 Oxygen Delivery Oxygen Flow Rate Fraction of Inspired Oxyg
[2023-12-27 17:44] LABS: Glucose Point of Care 108 mg/dl (65-105)
--- NOTE | 2023-12-27 19:09 | PM.PNPUL ---
Subjective Date/time seen: 12/27/23 19:09 Objective Data Intake/Output Intake/Output: Intake & Output 12/24/23 12/25/23 12/26/23 12/27/23 23:59 23:59 23:59 23:59 Intake Total 1430 1260 960 920 Output Total 1850 1500 1300 1300 Balance -420 -240 -340 -380 Meds/Results Medications: Active Medications Generic Name Dose Route Start Last Admin Trade Name Freq PRN Reason Stop Dose Admin Acetaminophen 650 mg 12/20/23 18:54 Acetaminophen 325 Mg Tablet PO Q4H PRN Mild Pain (1-3) Or Fever Hydrocodone Bitart/Acetaminophen 1 tab 12/20/23 12:55 Hydrocodone/Acetaminophen (*Crx) 5-325 Mg Tablet PO Q4H PRN Pain Rated 4-6 Hydrocodone Bitart/Acetaminophen 1 tab 12/20/23 18:54 Hydrocodone/Acetaminophen (*Crx) 5-325 Mg Tablet PO Q8H PRN Shortness Of Breath Albuterol 2 puff 12/20/23 18:54 Albuterol Sulfate (*Sp) Aerosol 1 Puff INHALATION Q4H PRN shortness of breath or wheezing Albuterol 2.5 mg 12/21/23 11:32 Albuterol Sulfate Neb 2.5 Mg/3 Ml Inh INHALATION Q4HRT PRN Shortness Of Breath Aspirin 81 mg 12/21/23 09:00 12/27/23 09:48 Aspirin 81 Mg Enteric Tablet PO 81 mg DAILY FELIBERTO Administration Atorvastatin Calcium 80 mg 12/20/23 21:00 12/26/23 20:18 Atorvastatin 40 Mg Tablet PO 80 mg HS FELIBERTO Administration Ezetimibe 10 mg 12/21/23 09:00 12/27/23 09:48 Ezetimibe 10 Mg Tablet PO 10 mg DAILY FELIBERTO Administration Heparin Sodium (Porcine) 5,000 units 12/26/23 21:00 12/27/23 09:50 Heparin Sodium 5,000 Units/Ml Vial SUB-Q 5,000 units Q12HR FELIBERTO Administration Levothyroxine Sodium 125 mcg 12/21/23 06:30 12/27/23 05:39 Levothyroxine Sodium 125 Mcg Tablet PO 125 mcg DAILY@0630 FELIBERTO Administration Lorazepam 0.5 mg 12/20/23 18:54 12/22/23 22:30 Lorazepam (*Crx) 0.5 Mg Tablet PO 0.5 mg TID PRN Administration anxiety Metoprolol Succinate 100 mg 12/23/23 09:00 12/27/23 09:48 Metoprolol Succinate Ext Rel 100 Mg Tabcr PO 100 mg QAM FELIBERTO Administration Multivitamins Therapeutic 1 tablet 12/21/23 09:00 12/27/23 09:48 Multivitamins Therapeutic Tab (*Bkc) PO 1 tablet DAILY FELIBERTO Administration Ondansetron HCl 4 mg 12/20/23 12:55 Ondansetron Inj 4 Mg/2 Ml Vial IV PUSH Q4H PRN Nausea Pantoprazole Sodium 40 mg 12/21/23 09:00 12/27/23 09:48 Pantoprazole 40 Mg Tablet PO 40 mg QAM FELIBERTO Administration Polyethylene Glycol 17 gm 12/21/23 09:00 12/27/23 09:50 Polyethylene Glycol 3350 17 Gm Powd.Pack PO Not Given DAILY FELIBERTO Potassium Chloride 20 meq 12/23/23 09:00 12/27/23 09:48 Potassium Chloride 20 Meq Er Tablet PO 20 meq DAILY FELIBERTO Administration Ropinirole HCl 1 mg 12/20/23 21:00 12/26/23 20:18 Ropinirole Hcl 1 Mg Tablet PO 1 mg HS FELIBERTO Administration Tolnaftate 1 applic 12/20/23 09:00 12/27/23 09:52 Tolnaftate 1% Powder 45 Gm Btl TOPICAL 1 applic Q12HR FELIBERTO Administration Radiology Results: ITS Impressions Chest X-Ray 12/20/23 10:26 IMPRESSION: 1. Diffuse lung disease, consistent with pulmonary edema versus pneumonia. 2. Small pleural effusions. 3. Cardiomegaly. Head CT 12/25/23 12:07 IMPRESSION: 1. Normal aging brain. Labs Labs: Laboratory Results - last 24 hr 12/26/23 12/27/23 12/27/23 21:26 04:52 08:23 WBC 9.1 RBC 3.04 L Hgb 9.6 L Hct 31.5 L MCV 103.6 H MCH 31.6 MCHC 30.5 L RDW 17.1 H Plt Count 154 MPV 10.1 Immature Gran % (Auto) 0.8 H Neut % (Auto) 63.9 Lymph % (Auto) 28.8 Clark % (Auto) 5.5 Eos % (Auto) 0.7 Baso % (Auto) 0.3 Lymph # (Auto) 2.62 Clark # (Auto) 0.5 Eos # (Auto) 0.1 Baso # (Auto) 0.0 Abs Immat Gran (auto) 0.07 H Absolute Neuts (auto) 5.8 Absolute Nucleated RBC 0.000 Nucleated RBC % 0.0 Sodium 134 L Potassium 3.6 Chloride 99 Carbon Dioxide 35 H Anion Gap 0 L BUN
[2023-12-27] MEDS: rOPINIRole HCL 1 MG TABLET PO (20:20)
[2023-12-27] MEDS: ATORVASTATIN 40 MG TABLET 80 MG PO (20:22)
[2023-12-27 21:10] LABS: Glucose Point of Care 146 mg/dl (65-105)
[2023-12-28] VITALS (7 sets, daily range): BP systolic 128; BP diastolic 56; PULSE 74–83; RESP 19–20; TEMP 36.3; O2SAT 96–99
[2023-12-28] MEDS: LEVOTHYROXINE SODIUM 125 MCG TABLET PO (05:38)
[2023-12-28 06:27] LABS: Basophils Percent Auto 0.3 % (0.2-1.2); Eosinophils Absolute Auto 0.1 K/mm3 (0-0.3); Eosinophils Percent Auto 0.9 % (0-4.4); Hematocrit 30.5 % (37.0-47.0); Hemoglobin 9.4 g/dL (12.0-15.0); Immature Granulocyte Absolute 0.05 K/mm3 (0.00-0.031); Immature Granulocyte Percent A 0.7 % (0-0.5); Lymphocytes Absolute Auto 2.22 K/mm3 (0.9-3.2); Lymphocytes Percent Auto 31.6 % (18.3-44.2); Mean Corpuscular HGB Conc 30.8 g/dl (32-36); Mean Corpuscular Volume 103.7 fl (80-100); Mean Platelet Volume 10.4 fl (7.4-10.4); Monocytes Absolute Auto 0.5 K/mm3 (0.1-0.6); Monocytes Percent Auto 7.4 % (2.6-8.5); Neutrophils Absolute Auto 4.2 K/mm3 (1.3-6.7); Neutrophils Percent Auto 59.1 % (45.5-73.1); Platelet Count Result 144 k/mm3 (150-375); Red Blood Count 2.94 M/mm3 (4.2-5.4); Red Cell Distribution Width 17.2 % (11.5-14.5)
[2023-12-28 06:51] LABS: Alanine Aminotransferase 30 U/L (6-35); Albumin Level 2.7 g/dL (3.5-5.1); Alkaline Phosphatase 81 U/L (38-126); Anion Gap 1 mmol/L (4-12); Aspartate Amino Transferase 47 U/L (14-36); Bilirubin,Total 0.9 mg/dL (0.2-1.3); Blood Urea Nitrogen 67 mg/dL (7-17); Calcium 8.9 mg/dL (8.4-10.2); Carbon Dioxide 34 mmol/L (22-30); Chloride 100 mmol/L (98-107); Estimated CRCL calculation 31 ml/min; Estimated Glomerular Filt Rate 47; Glucose 102 mg/dL (65-110); Sodium 135 mmol/L (137-145)
[2023-12-28 08:17] LABS: Glucose Point of Care 101 mg/dl (65-105)
[2023-12-28] MEDS: MULTIVITAMINS THERAPEUTIC TAB (*BKC) 1 TABLET PO (09:29)
[2023-12-28] MEDS: METOPROLOL SUCCINATE EXT REL 100 MG TABCR PO (09:29)
[2023-12-28] MEDS: ASPIRIN 81 MG ENTERIC TABLET PO (09:29)
[2023-12-28] MEDS: HEPARIN SODIUM 5,000 UNITS/ML VIAL 5000 UNITS SUB-Q (09:30)
[2023-12-28] MEDS: POTASSIUM CHLORIDE 20 MEQ ER TABLET PO (09:30)
[2023-12-28] MEDS: PANTOPRAZOLE 40 MG TABLET PO (09:30)
[2023-12-28] MEDS: EZETIMIBE 10 MG TABLET PO (09:30)
[2023-12-28] MEDS: TOLNAFTATE 1% POWDER 45 GM BTL 1 APPLIC TOPICAL (09:31)
[2023-12-28 12:21] LABS: Glucose Point of Care 159 mg/dl (65-105)
--- NOTE | 2023-12-28 12:27 | PM.DS ---
DS: Admitting Diagnosis Discharge Date 12/28/23 Admitting Diagnosis acute respiratory failure DS: Discharge Diagnosis Discharge Diagnosis (1) Delirium: Code(s): R41.0 - Disorientation, unspecified Status: Acute (2) Uremic encephalopathy: Code(s): G93.49 - Other encephalopathy; N19 - Unspecified kidney failure Status: Acute (3) History of aortic valve replacement with tissue graft: Code(s): Z95.4 - Presence of other heart-valve replacement Status: Acute (4) Respiratory failure with hypoxia and hypercapnia: Code(s): J96.91 - Respiratory failure, unspecified with hypoxia; J96.92 - Respiratory failure, unspecified with hypercapnia Status: Acute (5) Acute heart failure: Code(s): I50.9 - Heart failure, unspecified Status: Acute (6) Atrial fibrillation with rapid ventricular response: Code(s): I48.91 - Unspecified atrial fibrillation Status: Acute (7) Acute hypercapnic respiratory failure: Code(s): J96.02 - Acute respiratory failure with hypercapnia Status: Acute (8) Pulmonary edema: Code(s): J81.1 - Chronic pulmonary edema Status: Acute (9) Unable to care for self: Code(s): Z78.9 - Other specified health status Status: Acute Plan #Acute confusion likely delirium versus uremic encephalopathy #End-of-life care -possibly metabolic encephalopathy, BUN 68, may have worsening uremia with the diuresis. we will hold lasix, restart in a week -CT head ordered: negative -UA, RPR, hep panel, HIV, B12, folic, procalc, vit d. so far negative -pCO2 is stable chronic her COPD -family requested information on hospice, consult to childcare aide given -hospice is appropriate considering decrease in functional status over the course of the last year. family given information on hospice #heart failure reduced EF -diuresis -EF 45-50%, indeterminate diastolic function -potassium replacement with loop diuretics, stopped diuresis -cardiology recommends conservative management, continue metoprolol #Chronic conditions -HLD: aspirin, statin, zetia -hypothyroidism: synthroid -RLS: requip -HTN: metoprolol -afib: rate control metoprolol, only aspirin due to fall risk no AC - COPD, restrictive lung disease: COPD from secondhand smoke Diet:?heart healthy DVT ppx:?SQ heparin Code status:?DNR Disposition:?back to SNF DS: Summary Hospital Course Reason for hospitalization: acute respiratory failure with hypercapnia Hospital Course: Patient is a 88-year-old female from group home with past medical history of COPD on 4 L home oxygen therapy, GERD, anxiety, morbid obesity, type 2 diabetes, dementia presented with dyspnea. Patient found to have acute respiratory failure with hypercapnia. Patient seen by guest service supervisor wheeze patient's restrictive lung disease secondary to her morbid obesity and body habitus. patient appears to be baseline 2 L home oxygen therapy. Patient is not able to perform PFTs and further workup for ILD not possible. She was seen by icebox man for her AFib with RVR and heart failure. her Chads Vasc score is 6 however she is high risk for falls and not a good candidate for readmission candidate. We will continue only aspirin for blood thinner. For rate control we have added metoprolol 100 mg daily. Patient's echocardiogram showed EF 45-50%. Recommendation for heart failure management is conservative therapy with only the toprol XL. We were diuresing with IV Lasix and switch to p.o. Lasix however that worsened her uremia. Patient also developed some delirium during her hospitalization and it may be secondary to uremia from diuresis. delirium workup was benign. patient likely has dementia. patient is making many comments of talking to her of 20 years, making comments of approaching end of life. Also patient has decreased function has some months, no longer walking. She has very poor quality of life
[2023-12-28 13:24] LABS: SARS-CoV-2 RNA PCR Negative (Negative)
--- NOTE | 2023-12-28 14:15 | PC.NURSE ---
On 12/28/23, the student, [Justyn Bauman], provided care and completed [facility] documentation on this patient. I have reviewed the student's documentation and agree with the findings.
--- NOTE | 2023-12-28 15:08 | PC.NURSE ---
wound photo taken prior to dc and placed in chart
[2023-12-30 15:36] LABS: Vitamin D 1,25 (OH)2 Total 22 pg/mL (18-72); Vitamin D2 1,25 (OH)2 <8 pg/mL; Vitamin D3 1,25 (OH)2 22 pg/mL
== END 2023-12-28 14:55 | DRG 189 ==
LOC: ANHED 09:20 → ANHIMU 13:23 → ANH2MED 12-22 17:28
PROVIDERS: Hospitalist; Internal Medicine; Internal Medicine Pulmonary Disease; Nurse Practitioner; Admitting Provider Family Medicine; Emergency Provider Emergency Medicine; PCP Family Medicine; Visit Provider Student in an Organized Health Care Education/Training Program
DX: J96.02 Acute respiratory failure with hypercapnia (principal); I50.23 Acute on chronic systolic (congestive) heart failure; I13.0 Hypertensive heart and chronic kidney disease with heart failure and stage 1 through stage 4 chronic kidney disease, or unspecified chronic kidney disease; J81.1 Chronic pulmonary edema; J44.1 Chronic obstructive pulmonary disease with (acute) exacerbation; Z68.41 Body mass index [BMI] 40.0-44.9, adult; F05 Delirium due to known physiological condition; K21.9 Gastro-esophageal reflux disease without esophagitis; D53.9 Nutritional anemia, unspecified; E66.01 Morbid (severe) obesity due to excess calories; E11.22 Type 2 diabetes mellitus with diabetic chronic kidney disease; E78.5 Hyperlipidemia, unspecified; E03.9 Hypothyroidism, unspecified; F03.90 Unspecified dementia, unspecified severity, without behavioral disturbance, psychotic disturbance, mood disturbance, and anxiety; F41.9 Anxiety disorder, unspecified; G25.81 Restless legs syndrome; G47.33 Obstructive sleep apnea (adult) (pediatric); I25.10 Atherosclerotic heart disease of native coronary artery without angina pectoris; I34.0 Nonrheumatic mitral (valve) insufficiency; I48.91 Unspecified atrial fibrillation; J96.11 Chronic respiratory failure with hypoxia; M10.9 Gout, unspecified; N18.31 Chronic kidney disease, stage 3a; Z66 Do not resuscitate; Z99.81 Dependence on supplemental oxygen; Z99.89 Dependence on other enabling machines and devices; Z79.82 Long term (current) use of aspirin; Z88.0 Allergy status to penicillin; Z85.3 Personal history of malignant neoplasm of breast; Z86.73 Personal history of transient ischemic attack (TIA), and cerebral infarction without residual deficits; Z95.4 Presence of other heart-valve replacement; Z90.710 Acquired absence of both cervix and uterus; Z20.822 Contact with and (suspected) exposure to COVID-19; Z11.52 Encounter for screening for COVID-19; Z74.01 Bed confinement status
CPT/HCPCS: 36415; 36600; 70450; 71045; 80053; 80074; 81001; 82140; 82375; 82607; 82652; 82746; 82805; 82948; 83050; 83605; 83880; 84145; 84443; 85025; 85652; 86140; 86592; 86703; 87635; 87637; 93005; 93306; 94002; 94003; 94640; 96365; 96366; 96375; 97110; 97162; 97166; 97530; 99291; A9270; G0378; G0432; J1644; J1940; J1956; J2919